=== PATIENT | female | born 1950 | race Caucasian/White ===

== ENCOUNTER 2018-06-07 17:55 | Emergency (ER) | payer OTHER ==
[2018-06-07] MEDS ORDERED: FENTANYL CITR 100 MCG/2 ML ONE (18:15)
[2018-06-07] MEDS ORDERED: ADENOSINE 6 MG/ 2ML VIAL IV ONE ×2 (18:15→18:20)
[2018-06-07] MEDS ORDERED: NA CHLORIDE 0.9% 1,000 ML ONE (18:16)
[2018-06-07 18:24] LABS: Absolute Lymphocytes (CBC) 7.3 K/uL (0.7-4.9); Basophils % 0.5 % (0-1.3); Eosinophils % 2.1 % (0-4.4); Hematocrit 46.3 % (36.0-45.0); Lymphocytes % 53.4 % (15.3-44.8); MPV 9.6 fL (7.6-11.3); Monocytes % 7.2 % (3.3-12.3); RBC Red Blood Cell Count 4.66 M/uL (3.86-4.86)
--- NOTE | 2018-06-07 18:41 | RAD REPORT ---
EXAM DESCRIPTION: RAD - Chest Single View - 06/07/2018 6:28 pm CLINICAL HISTORY: ^PALPITATIONS COMPARISON: None. TECHNIQUE: AP portable chest image was obtained 1825 hours . FINDINGS: Lungs are clear. Heart and vasculature are normal. No measurable pleural effusion and no p neumothorax. No acute bony abnormality seen. No acute aortic findings suspected. Resuscitation paddle overlies the right chest. IMPRESSION: No acute cardiopulmonary process.
[2018-06-07 18:44] LABS: BUN Blood Urea Nitrogen 17 mg/dL (7-18); Bicarbonate 30 mmol/L (21-32); Glucose Level 146 mg/dL (74-106); Magnesium 2.1 mg/dL (1.8-2.4); NT PRO-BNP 329 pg/mL (<125); Potassium 3.8 mmol/L (3.5-5.1); Sodium Level 137 mmol/L (136-145); Troponin (Emerg Dept Use Only) < 0.02 ng/mL (0.0-0.045)
--- NOTE | 2018-06-07 18:58 | ER ---
Nurse's Notes [facility] Name: Marcy Naylor Age: 68 yrs Sex: Female : 1950 Arrival Date: 06/07/2018 Time: 17:57 Bed 4 Private MD: Diagnosis: Supraventricular tachycardia Presentation: 06/07 17:58 Presenting complaint: Patient states: "my heart started racing around 5:23pm today". Pt aa5 reports taking Flecainide 100 mg OVEN HEATER prescribed as needed on October 2017 for intermittent A-fib. Pt states "My sales representative aircraft is at [facility] and he recommended a heart ablation but I didn't follow through with treatment". 17:58 Transition of care: patient was not received from another setting of care. Onset of aa5 symptoms was June 07, 2018. Risk Assessment: Do you want to hurt yourself or someone else? Patient reports no desire to harm self or others. Care prior to arrival: None. 17:58 Method Of Arrival: Wheelchair aa5 17:58 Acuity: ARABELLA 1 aa5 18:22 Initial Sepsis Screen: Does the patient meet any 2 criteria? HR > 90 bpm. Does the tw2 patient have a suspected source of infection? No. Patient's initial sepsis screen is negative. Historical: - Allergies: 18:35 Adhesives; tw2 - Home Meds: 18:35 levothyroxine 125 mcg tab 1 tab once daily [Active]; flecainide 100 mg oral tab 1 tab tw2 every 12 hours for Prevention of Paroxysmal Supraventricular Tachycardia [Active]; - PMHx: 18:35 SVT; Hypothyroidism; tw2 - Immunization history:: Adult Immunizations. - Social history:: Smoking status: . - Family history:: not pertinent. - Ebola Screening: : Patient denies travel to an Ebola-affected area in the 21 days before illness onset. - Hospitalizations: : No recent hospitalization is reported. Screenin:59 Abuse screen: Denies threats or abuse. Nutritional screening: No deficits noted. tw2 Tuberculosis screening: No symptoms or risk factors identified. Fall Risk None identified. Assessment: 18:02 General: Appears in no apparent distress. Behavior is calm, cooperative, appropriate tw2 for age. Pain: Denies pain. Neuro: Level of Consciousness is awake, alert, obeys commands, Oriented to person, place, time, situation. Cardiovascular: Reports palpitations, Heart tones S1 S2 Capillary refill < 3 seconds Patient's skin is warm and dry. Rhythm is SVT. Respiratory: Airway is patent Respiratory effort is even, unlabored, Respiratory pattern is regular, symmetrical, Breath sounds are clear bilaterally. GI: No signs and/or symptoms were reported involving the gastrointestinal system. : No signs and/or symptoms were reported regarding the genitourinary system. EENT: No signs and/or symptoms were reported regarding the EENT system. Derm: No signs and/or symptoms reported regarding the dermatologic system. Musculoskeletal: Range of motion: intact in all extremities. 18:45 Reassessment: Patient appears in no apparent distress at this time. Patient and/or tw2 family updated on plan of care and expected duration. Pain level reassessed. Patient is alert, oriented x 3, equal unlabored respirations, skin warm/dry/pink. pt states "so they are not going to keep me here are they, i have a little dog", pt educated to the medical condition, pt states "well i dont know i really have no body for her" Patient states symptoms have improved. Vital Signs: 18:00 Pulse 220; aa5 18:02 BP 133 / 73; Pulse 222; Resp 22; Pulse Ox 100% ; tw2 18:20 BP 146 / 81; Pulse 84; Resp 22; Pulse Ox 99% on R/A; tw2 18:45 BP 127 / 72; Pulse 77; Resp 18; Pulse Ox 99% on R/A; tw2 18:02 Dr. Baca at bedside, pt placed on life pack, Sophy, RN, LARRY Florentino, LARRY Wheatley at bedside tw2 to perform ekg, etc. ED Course: 17:57 Patient arrived in ED. rg4 17:58 Cedric Baca MD is Attending Physician. rn 17:58 Arm band placed on Patient placed in an exam room, on a stretcher. aa5 17:59 Corry Luciano, LARRY is Primary Nurse. tw2 17:59 Placed in gown. Bed in low position. Call light in reach. general manager farm on. Pulse ox tw2 on. NIBP on. 18:00 Inserted saline lock: 20 gauge in right antecubital area, using aseptic technique. jl7 Blood collected. 18:00 Missed attempt(s): 20 gauge in right antecubital area. per LARRY Florentino. Bleeding tw2 controlled, band aid applied, catheter tip intact. 18:02 Inserted saline lock: 20 gauge in left antecubital area, using aseptic technique. iw 18:04 Triage completed. aa5 18:25 XRAY Chest (1 view) In Process Unspecified. EDMS 19:12 No provider procedures requiring assistance completed. IV discontinued, intact, jl7 bleeding controlled, No redness/swelling at site. Pressure dressing applied. 19:14 Primary Nurse role handed off by Corry Luciano, RN tw2 Administered Medications: 18:11 Drug: Adenosine 6 mg Route: IVP; Site: right antecubital; tw2 18:12 Follow up: Response: No adverse reaction; Marked relief of symptoms tw2 Outcome: 18:58 Discharge ordered by . rn 19:12 Discharged to home ambulatory. jl7 19:12 Condition: stable 19:12 Discharge instructions given to patient, family, Instructed on discharge instructions, follow up and referral plans. Demonstrated understanding of instructions, follow-up care. 19:13 Patient left the ED. jl7 Signatures: Dispatcher [employer] EDMS Sophy Carter, RN LARRY iw Cedric Baca MD MD rn Calderon, Audri, RN RN aa5 Corry Luciano, LARRY RN Larissa Zaidi [facility] Chadd Gan, RN RN jl7 Corrections: (The following items were deleted from the chart) 18:15 18:00 Inserted saline lock: 20 gauge in left antecubital area, using aseptic technique. [facility]
--- NOTE | 2018-06-07 18:58 | EDPHYS ---
Physician Documentation [facility] Name: Marcy Naylor Age: 68 yrs Sex: Female : 1950 Arrival Date: 06/07/2018 Time: 17:57 Bed 4 Private MD: ED Physician Cedric Baca HPI: 06/07 18:09 This 68 yrs old Female presents to ER via Wheelchair with complaints of Palpitations. rn 18:09 The patient presents with a history of heart racing. Onset: The symptoms/episode rn began/occurred 40 minute(s) ago, at 17:40. Duration: The patient or guardian reports a single episode. Severity of symptoms: At their worst the symptoms were moderate in the emergency department the symptoms are unchanged. The patient has experienced similar episodes in the past. Reports onset of palpitations approx 1720, constant, took a flecainide, and only mild response, this is 3rd episode of tachycardia, + lightheaded, no chest pain/sob. Otherwise has been feeling fine. Historical: - Allergies: 18:35 Adhesives; tw2 - Home Meds: 18:35 levothyroxine 125 mcg tab 1 tab once daily [Active]; flecainide 100 mg oral tab 1 tab tw2 every 12 hours for Prevention of Paroxysmal Supraventricular Tachycardia [Active]; - PMHx: 18:35 SVT; Hypothyroidism; tw2 - Immunization history:: Adult Immunizations. - Social history:: Smoking status: . - Family history:: not pertinent. - Ebola Screening: : Patient denies travel to an Ebola-affected area in the 21 days before illness onset. - Hospitalizations: : No recent hospitalization is reported. ROS: 18:09 Constitutional: Negative for fever, chills, and weight loss, Eyes: Negative for injury, rn pain, redness, and discharge, Cardiovascular: + palpitations Respiratory: Negative for shortness of breath, cough, wheezing, and pleuritic chest pain, Abdomen/GI: Negative for abdominal pain, nausea, vomiting, diarrhea, and constipation, MS/Extremity: Negative for injury and deformity, Skin: Negative for injury, rash, and discoloration, Neuro: Negative for headache, weakness, numbness, tingling, and seizure. Exam: 18:09 Constitutional: This is a well developed, well nourished patient who is awake, alert, rn and in no acute distress. Head/Face: Normocephalic, atraumatic. Eyes: Pupils equal round and reactive to light, extra-ocular motions intact. Lids and lashes normal. Conjunctiva and sclera are non-icteric and not injected. Cornea within normal limits. Periorbital areas with no swelling, redness, or edema. ENT: MMM Cardiovascular: tachycardic, regular Respiratory: Clear to auscultation, equal bilaterally Abdomen/GI: Soft, non-tender, with normal bowel sounds. No distension or tympany. No guarding or rebound. No evidence of tenderness throughout. Skin: Warm, dry with normal turgor. Normal color with no rashes, no lesions, and no evidence of cellulitis. MS/ Extremity: Pulses equal, no cyanosis. Neurovascular intact. Full, normal range of motion. Equal circumference. Neuro: Awake and alert, GCS 15, oriented to person, place, time, and situation. Cranial nerves II-XII grossly intact. Motor strength 5/5 in all extremities. Sensory grossly intact. Cerebellar exam normal. Normal gait. Vital Signs: 18:00 Pulse 220; aa5 18:02 BP 133 / 73; Pulse 222; Resp 22; Pulse Ox 100% ; tw2 18:20 BP 146 / 81; Pulse 84; Resp 22; Pulse Ox 99% on R/A; tw2 18:45 BP 127 / 72; Pulse 77; Resp 18; Pulse Ox 99% on R/A; tw2 18:02 Dr. Baca at bedside, pt placed on life pack, Sophy RN, LARRY Florentino, LARRY Wheatley at bedside tw2 to perform ekg, etc. MDM: 17:58 Patient medically screened. rn 18:22 ED course: Pt s/p chemical cardioversion with adenosine, now sinus rhythm and rn asymptomatic.. 18:54 Data reviewed: vital signs, nurses notes, lab test result(s), EKG, radiologic studies, rn plain films, and as a result, I will discharge patient. Counseling: I had a detailed discussion with the patient and/or guardian regarding: the historical points, exam findings, and any diagnostic results supporting the discharge/admit diagnosis, lab results, radiology results, the need for outpatient follow up, to return to the emergency department if symptoms worsen or persist or if there are any questions or concerns that arise at home. Response to treatment: the patient's symptoms have resolved after treatment, the patient's condition has returned to base line, the patient is now symptom free, and as a result, I will discharge patient. Special discussion: I discussed with the patient/guardian in detail that at this point there is no indication for admission to the hospital. It is understood, however, that if the symptoms persist or worsen the patient needs to return immediately for re-evaluation. Based on the history and exam findings, there is no indication for further emergent testing or inpatient evaluation. I discussed with the patient/guardian the need to see the medicine technologist for further evaluation of the symptoms. ED course: Pt with symptoms resolved, now in sinus, asymptomatic, recommend outpt f/u with EP/cardiology. Patient still not sure if wants ablation since went about 20 years between episodes. Still has flecainide and understands its use. . 06/07 18:07 Order name: Basic Metabolic Panel 06/07 18:07 Order name: CBC with Diff rn 06/07 18:07 Order name: Magnesium rn 06/07 18:07 Order name: NT PRO-BNP 06/07 18:07 Order name: Troponin (emerg Dept Use Only) rn 06/07 18:07 Order name: Basic Metabolic Panel; Complete Time: 18:54 EDMS 06/07 18:07 Order name: XRAY Chest (1 view); Complete Time: 18:42 rn 06/07 18:07 Order name: EKG; Complete Time: 18:08 rn 06/07 18:07 Order name: Magnesium; Complete Time: 18:54 EDMS 06/07 18:07 Order name: NT PRO-BNP; Complete Time: 18:54 EDMS 06/07 18:08 Order name: CBC with Automated Diff EDWA 06/07 18:08 Order name: Troponin (Emerg Dept Use Only); Complete Time: 18:54 EDMS 06/07 19:01 Order name: Manual Differential EDWA 06/07 18:07 Order name: Cardiac monitoring; Complete Time: 18:25 rn 06/07 18:07 Order name: EKG - Nurse/Tech; Complete Time: 18:20 rn 06/07 18:07 Order name: IV Saline Lock; Complete Time: 18:20 rn 06/07 18:07 Order name: Labs collected and sent; Complete Time: 18:20 rn 06/07 18:07 Order name: O2 Per Protocol; Complete Time: 18:20 rn 06/07 18:07 Order name: O2 Sat Monitoring; Complete Time: 18:20 rn Administered Medications: 18:11 Drug: Adenosine 6 mg Route: IVP; Site: right antecubital; tw2 18:12 Follow up: Response: No adverse reaction; Marked relief of symptoms tw2 Disposition: 06/07/18 18:58 Discharged to Home. Impression: Supraventricular tachycardia. - Condition is Stable. - Discharge Instructions: Pharmaceutical Cardioversion, Paroxysmal Supraventricular Tachycardia. - Medication Reconciliation Form, Thank You Letter, Antibiotic Education, Prescription Opioid Use form. - Follow up: Private Physician; When: As needed; Reason: Recheck today's complaints, Re-evaluation by your physician. - Problem is new. - Symptoms have improved. Signatures: Dispatcher [employer] EDMS Cedric Baca MD MD rn Wise, LARRY Wheatley RN tw2 Chadd Gan RN RN jl7 Corrections: (The following items were deleted from the chart) 19:13 18:58 06/07/2018 18:58 Discharged to Home. Impression: Supraventricular tachycardia. jl7 Condition is Stable. Forms are Medication Reconciliation Form, Thank You Letter, Antibiotic Education, Prescription Opioid Use. Follow up: Private Physician; When: As needed; Reason: Recheck today's complaints, Re-evaluation by your physician. Problem is new. Symptoms have improved. rn
[2018-06-07 19:00] LABS: Platelet Estimate ADEQ
[2018-06-07 19:01] LABS: Blood Morphology Comment NOT SEEN (NOT SEEN)
--- NOTE | 2018-06-08 10:45 | EKG ---
Test Date: 2018-06-07 Test Time: 18:11:55 Coat Ironer Hand: CONY MEASUREMENT RESULTS: Intervals: Rate: 94 PA: 170 QRSD: 88 QT: 322 QTc: 402 [place]: P: 46 PA: 170 QRS: -32 T: 85 INTERPRETIVE STATEMENTS: Sinus rhythm with sinus arrhythmia with occasional premature ventricular complexes Left axis deviation Septal infarct, age undetermined Abnormal ECG Compared to ECG 06/07/2018 18:01:35 Supraventricular tachycardia no longer present Incomplete right bundle-branch block no longer present ST (T wave) deviation no longer present Myocardial infarct finding still present Electronically Signed On 06-08-18 10:42:58 MOLD MECHANIC by Tyshawn Angeles
--- NOTE | 2018-06-08 10:45 | EKG ---
Test Date: 2018-06-07 Test Time: 18:01:35 Manager Servicing: CONY MEASUREMENT RESULTS: Intervals: Rate: 222 AR: QRSD: 92 QT: 212 QTc: 407 [place]: P: AR: QRS: -46 T: 141 INTERPRETIVE STATEMENTS: Supraventricular tachycardia with frequent premature ventricular complexes Left axis deviation Incomplete right bundle branch block Septal infarct, age undetermined Marked ST abnormality, possible lateral subendocardial injury Abnormal ECG No previous ECG available for comparison Electronically Signed On 06-08-18 10:42:59 SENIOR ACCOUNTS PAYABLE CLERK by Tyshawn Angeles
== END 2018-06-07 19:13 | disposition home or self-care (01) ==
LOC: ER 17:55
DX: I47.1 Supraventricular tachycardia (principal); I49.3 Ventricular premature depolarization; R00.2 Palpitations
CPT/HCPCS: 36415; 71045; 80048; 83735; 83880; 84484; 85025; 93005 ×2; 96374; 99291; J0153 ×2; J7030; J3010

== ENCOUNTER 2018-06-19 20:56 | Emergency (ER) | payer OTHER ==
--- OUTSIDE RECORDS SUMMARY | 2018-06-19 20:58 | XMS REPORT | Clinical Summary ---
:1950 Author Organization [facility] Address [address] [place] [address] Care Team Providers Name Role Phone Jl Ramirez MD Primary Care Provider Allergies No Known Allergies Medications Medication Sig Dispensed Refills Start Date End Date Status levothyroxine Take 100 mcg by 0 Active (SYNTHROID, mouth daily. LEVOXYL) 100 mcg tablet flecainide Take 100 mg by 0 Active (TAMBOCOR) 100 MG mouth continuously tablet as needed (prn for tachycardia). metoprolol Take 1 tablet (25 30 tablet 0 12/16/2017 01/15/2018 succinate XL mg total) by mouth (TOPROL-XL) 25 mg daily for 30 days. 24 hr tablet nitrofurantoin, Take 1 capsule 14 capsule 0 06/11/2018 06/18/2018 macrocrystal-monohy (100 mg total) by drate, (MACROBID) mouth 2 (two) 100 MG capsule times a day for 7 days. Active Problems Not on file Encounters Date Type Specialty Care Team Description 06/11/2018 Emergency Emergency Medicine Nadir Sanz MD Paroxysmal SVT ( supraventricular tachycardia) (HCC) (Primary Dx); Urinary tract infection without hematuria, site unspecified 06/11/2018 Travel 12/15/2017 - Emergency Emergency Medicine Holly Curran, SVT ( supraventricular 12/16/2017 MD tachycardia) (Primary Dx) 09/29/2017 Emergency Emergency Medicine Joshua Garcia, SVT ( supraventricular MD tachycardia) (Primary Dx) after 06/18/2017 Social History Tobacco Use Types Packs/Day Years Used Date Never Smoker Smokeless Tobacco: Never Used Alcohol Use Drinks/Week oz/Week Comments Yes on occasion Sex Assigned at Date Recorded Not on file Job Start Date Occupation Industry Not on file Not on file Not on file Travel History Travel Start Travel End No recent travel history available. Last Filed Vital Signs Vital Sign Reading Time Taken Blood Pressure 103/66 06/11/2018 10:00 PM PATTERN REPAIR PERSON Pulse 69 06/11/2018 10:00 PM PATTERN REPAIR PERSON Temperature 36.1 C (97 F) 06/11/2018 8:01 PM PATTERN REPAIR PERSON Respiratory Rate 22 06/11/2018 10:00 PM PATTERN REPAIR PERSON Oxygen Saturation 98% 06/11/2018 10:00 PM PATTERN REPAIR PERSON Inhaled Oxygen Concentration - - Weight 65.8 kg (145 lb) 06/11/2018 8:00 PM PATTERN REPAIR PERSON Height 167.6 cm (5' 6") 06/11/2018 8:00 PM PATTERN REPAIR PERSON Body Mass Index 23.4 06/11/2018 8:00 PM PATTERN REPAIR PERSON Plan of Treatment Health Maintenance Due Date Last Done Comments BREAST CANCER SCREENING 1999 COLON CANCER SCREENING 1999 SHINGLES VACCINES (1 of 2) 1999 PNEUMOCOCCAL POLYSACCHARIDE VACCINE AGE 65 AND OVER 2014 INFLUENZA VACCINE 12/14/2017 02/18/2015 PNEUMOCOCCAL-13 Completed 03/05/2015 Procedures Procedure Name Priority Date/Time Associated Comments Diagnosis URINALYSIS STAT 06/11/2018 9:46 Results for this PM PATTERN REPAIR PERSON procedure are in the results section. XR CHEST 1 VW PORTABLE STAT 06/11/2018 8:35 Results for this PM PATTERN REPAIR PERSON procedure are in the results section. ECG ED PRELIMINARY Routine 06/11/2018 8:33 Results for this INTERPRETATION PM PATTERN REPAIR PERSON procedure are in the results section. ECG ED PRELIMINARY Routine 06/11/2018 8:33 Results for this INTERPRETATION PM PATTERN REPAIR PERSON procedure are in the results section. KS CRITICAL CARE, ADDL Routine 06/11/2018 8:33 Results for this 30 MIN PM PATTERN REPAIR PERSON procedure are in the results section. KS CRITICAL CARE, E/M Routine 06/11/2018 8:33 Results for this 30-74 MINUTES PM PATTERN REPAIR PERSON procedure are in the results section. ECG 12-LEAD Routine 06/11/2018 8:15 Results for this PM PATTERN REPAIR PERSON procedure are in the results section. SMEAR REVIEW STAT 06/11/2018 8:08 Results for this PM PATTERN REPAIR PERSON procedure are in the results section. ESTIMATED GFR STAT 06/11/2018 8:08 Results for this PM PATTERN REPAIR PERSON procedure are in the results section. CREATINE KINASE, TOTAL STAT 06/11/2018 8:08 Results for this (CPK) PM PATTERN REPAIR PERSON procedure are in the results section. TROPONIN, I-STAT STAT 06/11/2018 8:08 Results for this PM PATTERN REPAIR PERSON procedure are in the results section. HC COMPLETE BLD COUNT STAT 06/11/2018 8:08 Results for this W/AUTO DIFF PM PATTERN REPAIR PERSON procedure are in the results section. COMPREHENSIVE METABOLIC STAT 06/11/2018 8:08 Results for this PANEL PM PATTERN REPAIR PERSON procedure are in the results section. ECG 12-LEAD STAT 06/11/2018 8:03 Results for this PM PATTERN REPAIR PERSON procedure are in the results section. XR CHEST 1 VW PORTABLE STAT 12/15/2017 10:29 Results for this PM CDT procedure are in the results section. ECG ED PRELIMINARY Routine 12/15/2017 10:18 Results for this INTERPRETATION PM CDT procedure are in the results section. ECG ED PRELIMINARY Routine 12/15/2017 10:18 Results for this INTERPRETATION PM CDT procedure are in the results section. KS CRITICAL CARE, E/M Routine 12/15/2017 10:18 Results for this 30-74 MINUTES PM CDT procedure are in the results section. MANUAL DIFFERENTIAL STAT 12/15/2017 10:18 Results for this PM CDT procedure are in the results section. THYROID STIMULATING STAT 12/15/2017 10:18 Results for this HORMONE PM CDT procedure are in the results section. ZZESTIMATED GFR STAT 12/15/2017 10:18 Results for this PM CDT procedure are in the results section. PARTIAL THROMBOPLASTIN STAT 12/15/2017 10:18 Results for this TIME (PTT) PM CDT procedure are in the results section. PROTHROMBIN TIME WITH STAT 12/15/2017 10:18 Results for this INR PM CDT procedure are in the results section. CBC WITH PLATELET AND STAT 12/15/2017 10:18 Results for this DIFFERENTIAL PM CDT procedure are in the results section. B NATRIURETIC PEPTIDE STAT 12/15/2017 10:18 Results for this PM CDT procedure are in the results section. CREATINE KINASE, TOTAL STAT 12/15/2017 10:18 Results for this (CPK) PM CDT procedure are in the results section. TROPONIN STAT 12/15/2017 10:18 Results for this PM CDT procedure are in the results section. COMPREHENSIVE METABOLIC STAT 12/15/2017 10:18 Results for this PANEL PM CDT procedure are in the results section. ECG 12-LEAD Routine 12/15/2017 10:15 Results for this PM CDT procedure are in the results section. ECG 12-LEAD Routine 12/15/2017 10:13 Results for this PM CDT procedure are in the results section. ECG 12-LEAD Routine 12/15/2017 10:01 Results for this PM CDT procedure are in the results section. ECG ED PRELIMINARY Routine 09/29/2017 11:12 Results for this INTERPRETATION AM CDT procedure are in the results section. ECG ED PRELIMINARY Routine 09/29/2017 11:12 Results for this INTERPRETATION AM CDT procedure are in the results section. ECG 12-LEAD Routine 09/29/2017 10:51 Results for this AM CDT procedure are in the results section. ECG 12-LEAD STAT 09/29/2017 10:42 Results for this AM CDT procedure are in the results section. after 06/18/2017 Results Urinalysis (06/11/2018 9:46 PM PATTERN REPAIR PERSON) Glucose, UA Negative Negative [facility] Bilirubin, UA Negative Negative [facility] Ketones, UA Negative Negative [facility] Specific gravity, UA 1.010 1.005 - 1.030 [facility] Blood, UA Trace (A) Negative [facility] pH, UA 5.5 5.0 - 8.0 [facility] Protein, UA Negative Negative [facility] Urobilinogen, UA <2.0 <2.0 [facility] Nitrite, UA Negative Negative [facility] Leukocyte esterase, UA Moderate (A) Negative [facility] Color, UA Yellow [facility] Appearance, UA Clear [facility] Specimen Urine Performing Organization Address City/State/Zipcode Phone Number DEPARTMENT OF PATHOLOGY [address] [address] [place] [address] AND GENOMIC MEDICINE, [facility] [address] [place] [address] XR Chest 1 Vw Portable (06/11/2018 8:35 PM PATTERN REPAIR PERSON)Only the most recent of2 resultswithin the time period is included. Narrative Performed At EXAMINATION:XR CHEST 1 VW PORTABLE [facility] CLINICAL HISTORY:Shortness of breath COMPARISON:December 15, 2017 IMPRESSION: No consolidation or pleural effusion. The heart is normal in size. Trace vascular congestion. No gross pulmonary edema Tiny linear scarring or atelectasis in the left lung. Osseous structures are intact. [id number] Procedure Note Hm Interface, Radiology Results Incoming - 06/11/2018 8:53 PM PATTERN REPAIR PERSON EXAMINATION: XR CHEST 1 VW PORTABLE CLINICAL HISTORY: Shortness of breath COMPARISON: December 15, 2017 IMPRESSION: No consolidation or pleural effusion. The heart is normal in size. Trace vascular congestion. No gross pulmonary edema Tiny linear scarring or atelectasis in the left lung. Osseous structures are intact. [facility]-[id number] Performing Organization Address City/State/Zipcode Phone Number [facility] [address] [place] [address] ECG ED Preliminary Interpretation - Not an Order (06/11/2018 8:33 PM PATTERN REPAIR PERSON)Only the most recent of6 resultswithin the time period is included. Narrative Performed At Nadir Sanz MD 06/11/2018 10:05 PM ECG ED Preliminary Interpretation - Not an Order Performed by: Nadir Sanz MD Authorized by: Nadir Sanz MD ECG reviewed by ED Physician in the absence of a compressor station engineer: yes Previous ECG: Previous ECG:Compared to current Comparison ECG info:Earlier same day Similarity:Changes noted Interpretation: Interpretation: abnormal Rate: ECG rate:96 ECG rate assessment: normal Rhythm: Rhythm: sinus rhythm Ectopy: Ectopy: PVCs QRS: QRS axis:Indeterminate QRS intervals:Normal Q waves: Q waves:V1 and V2 CRITICAL CARE (06/11/2018 8:33 PM PATTERN REPAIR PERSON) Narrative Performed At Nadir Sanz MD 06/11/2018 10:05 PM Critical Care Performed by: Nadir Sanz MD Authorized by: Nadir Sanz MD Critical care provider statement: Critical care time (minutes):90 Critical care time was exclusive of:Separately billable procedures and treating other patients Critical care was necessary to treat or prevent imminent or life-threatening deterioration of the following conditions:Cardiac failure and circulatory failure Critical care was time spent personally by me on the following activities:Blood draw for specimens, development of treatment plan with patient or surrogate, evaluation of patient's response to treatment, examination of patient, obtaining history from patient or surrogate, ordering and performing treatments and interventions, ordering and review of laboratory studies, ordering and review of radiographic studies, pulse oximetry, re-evaluation of patient's condition and review of old charts Shakeel 'yes' if you are taking over critical care for this patient from another provider.: no ECG 12 lead (06/11/2018 8:15 PM PATTERN REPAIR PERSON)Only the most recent of7 resultswithin the time period is included. Ventricular rate 96 [facility] Atrial rate 96 [facility] [place] interval 172 [facility] QRSD interval 84 [facility] QT interval 312 [facility] QTC interval 394 [facility] P axis 1 54 [facility] QRS axis 1 -27 [facility] T wave axis 76 [facility] EKG impression Sinus rhythm with premature ventricular [facility] complexes or fusion complexes-Septal infarct , age undetermined-Abnormal ECG-- Narrative Performed At Performing Organization Address City/[facility]/Zipcode Phone Number [facility] [address] [place] [address] Smear review (06/11/2018 8:08 PM PATTERN REPAIR PERSON) Platelet slide review Kody adequate [facility] Enlarged platelets Slight [facility] Specimen Blood Performing Organization Address City/[facility] Phone Number DEPARTMENT OF PATHOLOGY [address] [address] [place] [address] AND [employer] MEDICINE, [facility] [address] [place] [address] Estimated GFR (06/11/2018 8:08 PM PATTERN REPAIR PERSON) Estimated GFR 46 (A) mL/min/1.73 m2 [facility] Comment: CENTER CatergoryUnitsInterpretation G1 >=90 Normal or high G2 60-89Mildly decreased [id number] to moderately decreased [id number] to severely decreased G4 15-29Severely decreased G5 <15Kidney failure The eGFR was calculated using the Chronic Kidney Disease Epidemiology Collaboration (CKD-EPI) equation. Interpretation is based on recommendations of the National Kidney Foundation-Kidney Disease Outcomes Quality Initiative (NKF-KDOQI) published in 2014. Specimen Plasma specimen Performing Organization Address City/State/Zipcode Phone Number DEPARTMENT OF PATHOLOGY [address] [address] AND [employer], [address] [facility] [address] [address] Troponin, I-Stat (06/11/2018 8:08 PM PATTERN REPAIR PERSON) Troponin, I-Stat 0.01 0.00 - 0.08 ng/mL [facility] Comment: CENTER 0.09 - 1.49 ng/mlMay indicate increased risk of acute coronary syndrome. >=1.5 ng/mlConsistent with acute myocardial infarction. The diagnostic value of a single normal or non-diagnostic result is questionable.Serial samples at 2-6 hour intervals are required to rule out acute myocardial injury. Specimen Plasma specimen Performing Organization Address City/State/Zipcode Phone Number DEPARTMENT OF PATHOLOGY [address] [address] [address] [facility] [place] [phone] CBC with platelet and differential (06/11/2018 8:08 PM PATTERN REPAIR PERSON)Only the most recent of2 resultswithin the time period is included. WBC 12.9 (H) 4.5 - 11.0 k/uL [facility] RBC 4.41 4.20 - 5.50 M/uL [facility] HGB 14.2 12.0 - 16.0 g/dL [facility] HCT 44.1 37.0 - 47.0 % [facility] MCV 100.0 82.0 - 100.0 fL [facility] MCH 32.2 27.0 - 34.0 pg [facility] MCHC 32.2 31.0 - 37.0 g/dL [facility] RDW - SD 44.5 37.0 - 55.0 fL [facility] MPV 10.9 8.8 - 13.2 fL [facility] Platelet count 185 150 - 400 K/uL [facility] Neutrophils 26.3 (L) 39.0 - 69.0 % [facility] Lymphocytes 60.1 (H) 25.0 - 45.0 % [facility] Monocytes 9.5 0.0 - 10.0 % [facility] Eosinophils 3.9 0.0 - 5.0 % [facility] [place] Basophils 0.2 0.0 - 1.0 % [facility] Specimen Blood Performing Organization Address City/State/Zipcode Phone Number DEPARTMENT OF PATHOLOGY [address] [place] [address] AND [facility] [place] [address] Creatine kinase, total (CPK) (06/11/2018 8:08 PM PATTERN REPAIR PERSON)Only the most recent of2 resultswithin the time period is included. Creatine kinase 81 30 - 190 U/L [facility] Specimen Blood Performing Organization Address City/[facility] Phone Number DEPARTMENT OF PATHOLOGY [address] [place] [address] AND [facility] [place] [address] Comprehensive metabolic panel (06/11/2018 8:08 PM PATTERN REPAIR PERSON)Only the most recent of2 resultswithin the time period is included. Sodium 144 128 - 145 mEq/L [facility] Potassium 4.5 3.6 - 5.1 mEq/L [facility] CO2 27 18 - 33 mEq/L [facility] Chloride 101 98 - 108 mEq/L [facility] Glucose 169 (H) 73 - 118 mg/dL [facility] Calcium 9.5 8.0 - 10.3 mg/dL [facility] BUN 22 7 - 22 mg/dL [facility] Creatinine 1.2 (H) 0.5 - 0.9 mg/dL [facility] Alkaline phosphatase 75 42 - 141 U/L [facility] ALT 17 10 - 47 U/L [facility] AST 29 11 - 38 U/L [facility] Total bilirubin 0.6 0.2 - 1.6 mg/dL [facility] Albumin 3.9 3.3 - 5.5 g/dL [facility] Protein 7.2 6.4 - 8.1 g/dL [facility] Anion gap 16@ANIO (H) 7 - 15 mEq/L [facility] A/G ratio 1.2 0.7 - 3.8 [facility] Specimen Plasma specimen Performing Organization Address City/State/Zipcode Phone Number DEPARTMENT OF PATHOLOGY [address] [address] [place] [address] [facility] [address] [place] [address] CRITICAL CARE (12/15/2017 10:18 PM CDT) Narrative Performed At Holly Curran MD 12/16/2017 12:06 AM Critical Care Performed by: HOLLY CURRAN Authorized by: HOLLY CURRAN Critical care provider statement: Critical care time (minutes):35 Critical care time was exclusive of:Separately billable procedures and treating other patients and teaching time Critical care was necessary to treat or prevent imminent or life-threatening deterioration of the following conditions:Cardiac failure Critical care was time spent personally by me on the following activities:Blood draw for specimens, development of treatment plan with patient or surrogate, discussions with consultants, evaluation of patient's response to treatment, examination of patient, interpretation of cardiac output measurements, obtaining history from patient or surrogate, ordering and performing treatments and interventions, ordering and review of laboratory studies, ordering and review of radiographic studies, pulse oximetry, re-evaluation of patient's condition and review of old charts Shakeel 'yes' if you are taking over critical care for this patient from another provider.: no Estimated GFR (12/15/2017 10:18 PM CDT) GFR Non Af Amer 45 (A) mL/min/1.[address] [facility] DEPARTMENT OF PATHOLOGY AND GENOMIC MEDICINE GFR Af Amer 54 (A) mL/min/1.[address] [facility] DEPARTMENT OF Comment: PATHOLOGY AND GENOMIC Chronic kidney disease: <60 mL/min/1.73m2 MEDICINE Kidney failure: <15 mL/min/1.73m2 The estimated GFR is calculated from the IDMS-traceable Modification of Diet in Renal Disease Equation. The accuracy of the calculation is poor when the creatinine is normal. Calculated values >90 mL/min/1.73m2 are not reported. This equation has not been validated in children (<18 years), women, the elderly (>70 years), or ethnic groups other than Caucasians and Americans. Specimen Plasma specimen Performing Organization Address City/[facility] Phone Number [facility] PATHOLOGY AND [id number] [place], [place] [address]y. [address] [place] [phone] [facility] Troponin (12/15/2017 10:18 PM CDT) Troponin <0.300 0.000 - 0.300 ng/mL [facility] DEPARTMENT OF Comment: PATHOLOGY AND GENOMIC The diagnostic value of a single normal or non-diagnostic MEDICINE result is questionable.Serial samples at 2-6 hour intervals are required to rule out acute myocardial injury. Specimen Plasma specimen Performing Organization Address [facility] Phone Number [facility] PATHOLOGY AND [id number] [place], [place] [address]y. [address] [place] [address] [facility] MEDICINE Manual differential (12/15/2017 10:18 PM CDT) Neutrophils 39.0 39.0 - 69.0 % [facility] DEPARTMENT OF PATHOLOGY AND GENOMIC MEDICINE Lymphocytes 45.0 25.0 - 45.0 % [facility] DEPARTMENT OF PATHOLOGY AND GENOMIC MEDICINE Monocytes 10.0 0.0 - 10.0 % [facility] DEPARTMENT OF PATHOLOGY AND GENOMIC MEDICINE Eosinophils 1.0 0.0 - 5.0 % [facility] DEPARTMENT OF PATHOLOGY AND GENOMIC MEDICINE Basophils 1.0 0.0 - 1.0 % [facility] DEPARTMENT OF PATHOLOGY AND GENOMIC MEDICINE Reactive lymphocytes [address] [facility] DEPARTMENT OF PATHOLOGY AND GENOMIC MEDICINE Platelet slide review Adequate [facility] DEPARTMENT OF PATHOLOGY AND GENOMIC MEDICINE Performing Organization Address [facility] Phone Number [facility] DEPARTMENT PATHOLOGY AND [address] [place], [place] [address]y. [address] [place] [address] [facility] Partial thromboplastin time, activated (12/15/2017 10:18 PM CDT) PTT 28.1 23.0 - 36.[address] [facility] DEPARTMENT OF Comment: PATHOLOGY AND GENOMIC PTT therapeutic range for unfractionated heparin is MEDICINE 66.0-112.0 seconds which corresponds to Anti-Xa 0.3-0.7 U/mL. The reference range has changed starting 10/14/2009 @12:00pm Specimen Blood Performing Organization Address City/[facility] Phone Number [facility] DEPARTMENT PATHOLOGY AND [address] [place], [place] [address]y. [address] [place] [address] [facility] Prothrombin time with INR (12/15/2017 10:18 PM CDT) Prothrombin time 14.0 12.0 - 15.[address] [facility] DEPARTMENT OF PATHOLOGY AND GENOMIC MEDICINE INR 1.1 [facility] DEPARTMENT OF Comment: PATHOLOGY AND GENOMIC The International Normalized Ratio (INR) is a therapeutic MEDICINE monitoring tool for patients who are stable on oral anticoagulant therapy. An INR of 2.0-3.0 is suggested for deep vein thrombosis/pulmonary embolism. Specimen Blood Performing Organization Address City/[facility]/Zipcode Phone Number [facility] DEPARTMENT OF PATHOLOGY AND [address] [place] [address]. [address] [place] [address] [facility] Thyroid stimulating hormone (12/15/2017 10:18 PM CDT) TSH 3.48 0.55 - 4.78 uIU/mL [facility] DEPARTMENT OF PATHOLOGY AND GENOMIC MEDICINE Specimen Plasma specimen Performing Organization Address [facility]/Zipcode Phone Number [facility] DEPARTMENT OF PATHOLOGY AND [address] [place] [address]. [address] [place] [phone] [facility] B natriuretic peptide (12/15/2017 10:18 PM CDT) BNP 178 (H) 0 - 100 pg/mL [facility] DEPARTMENT OF PATHOLOGY AND GENOMIC MEDICINE Specimen Blood Performing Organization Address [facility] Phone Number [facility] DEPARTMENT OF PATHOLOGY AND [address] [place] [address]. [address] [place] [phone] GENOMIC [facility] after 06/18/2017 Insurance Payer Benefit Plan / Group Subscriber ID Type Phone Address [employer] MEDICARE [employer] MEDICARE PPO/PFFS/ERS [facility] xxxxxxxxx PPO Advance Directives Patient has advance care planning documents on file. For more information, please contact:[place] [address]
[2018-06-19] MEDS ORDERED: DIPHENHYDRAMINE 50 MG/ML VIAL ONE (21:44)
[2018-06-19] MEDS ORDERED: FAMOTIDINE 20 MG/2 ML VIAL IV ONE (21:45)
[2018-06-19] MEDS ORDERED: METHYLPREDNISOLONE 40 MG INJ ONE (21:45)
--- NOTE | 2018-06-19 22:05 | EDPHYS ---
Physician Documentation [facility] Name: Marcy Naylor Age: 68 yrs Sex: Female : 1950 Arrival Date: 06/19/2018 Time: 21:02 Bed 5 Private MD: ED Physician Nhan Chowdhury HPI: 06/19 21:56 This 68 yrs old Female presents to ER via Ambulatory with complaints of gs Allergic Reaction. 21:56 The patient presents with swelling of the lips, swelling of the tongue. Onset: The gs symptoms/episode began/occurred 5 day(s) ago, and became persistent. Possible causes: antibiotics, macrobid. Severity of symptoms: At their worst the symptoms were moderate in the emergency department the symptoms are unchanged. The patient has not experienced similar symptoms in the past. The patient has been recently seen by a physician: with different complaint(s). 21:56 Associated signs and symptoms: Pertinent negatives: chest pain, dysphagia, shortness of gs breath, Syncope vomiting. Historical: - Allergies: 21:16 Adhesives; fc - Home Meds: 21:16 flecainide 100 mg Oral tab 1 tab every 12 hours for Prevention of Paroxysmal fc Supraventricular Tachycardia [Active]; levothyroxine 125 mcg tab 1 tab once daily [Active]; - PMHx: 21:16 Hypothyroidism; SVT; fc - PSHx: 21:16 Tonsillectomy; fc - Immunization history:: Last tetanus immunization: up to date Flu vaccine is up to date. - Social history:: Smoking status: Patient/guardian denies using tobacco, Patient/guardian denies using alcohol, street drugs. - Ebola Screening: : Patient negative for fever greater than or equal to 101.5 degrees Fahrenheit, and additional compatible Ebola Virus Disease symptoms Patient denies exposure to infectious person Patient denies travel to an Ebola-affected area in the 21 days before illness onset. ROS: 21:56 All other systems are negative. gs Exam: 21:56 Head/Face: Normocephalic, atraumatic. Eyes: Pupils equal round and reactive to light, gs extra-ocular motions intact. Lids and lashes normal. Conjunctiva and sclera are non-icteric and not injected. Cornea within normal limits. Periorbital areas with no swelling, redness, or edema. Neck: Trachea midline, no thyromegaly or masses palpated, and no cervical lymphadenopathy. Supple, full range of motion without nuchal rigidity, or vertebral point tenderness. No Meningismus. Chest/axilla: Normal chest wall appearance and motion. Nontender with no deformity. No lesions are appreciated. Cardiovascular: Regular rate and rhythm with a normal S1 and S2. No gallops, murmurs, or rubs. Normal PMI, no JVD. No pulse deficits. Respiratory: Lungs have equal breath sounds bilaterally, clear to auscultation and percussion. No rales, rhonchi or wheezes noted. No increased work of breathing, no retractions or nasal flaring. Abdomen/GI: Soft, non-tender, with normal bowel sounds. No distension or tympany. No guarding or rebound. No evidence of tenderness throughout. Back: No spinal tenderness. No costovertebral tenderness. Full range of motion. Skin: Warm, dry with normal turgor. Normal color with no rashes, no lesions, and no evidence of cellulitis. MS/ Extremity: Pulses equal, no cyanosis. Neurovascular intact. Full, normal range of motion. Neuro: Awake and alert, GCS 15, oriented to person, place, time, and situation. Cranial nerves II-XII grossly intact. Motor strength 5/5 in all extremities. Sensory grossly intact. Cerebellar exam normal. Normal gait. 21:56 Constitutional: The patient appears in no acute distress, alert, awake. 21:56 ENT: Mouth: Lips: very minimal swelling, cant appreciate tongue swelling but pt states is enlarged. Vital Signs: 21:00 BP 134 / 77; Pulse 57; Resp 18; Temp 98.6(O); Pulse Ox 100% on R/A; Weight 65.77 kg fc (R); Height 5 ft. 6 in. (167.64 cm) (R); Pain 0/10; 22:23 BP 120 / 75; Pulse 58; Resp 16; Temp 97.2; Pulse Ox 100% on R/A; Pain 0/10; ed1 21:00 Body Mass Index 23.40 (65.77 kg, 167.64 cm) MDM: 21:25 Patient medically screened. 21:56 Differential diagnosis: anaphylaxis, angioedema, non IgE mediated drug reaction. Data gs reviewed: vital signs, nurses notes. Response to treatment: the patient's symptoms have mildly improved after treatment, and as a result, I will discharge patient. Administered Medications: 21:41 Drug: SOLU-Medrol 80 mg Route: IVP; Site: right antecubital; ed1 22:25 Follow up: Response: No adverse reaction; Marked relief of symptoms ed1 21:41 Drug: Benadryl 12.5 mg Route: IVP; Site: right antecubital; ed1 22:24 Follow up: Response: No adverse reaction; Marked relief of symptoms ed1 21:41 Drug: Pepcid 20 mg Route: IVP; Site: right antecubital; ed1 22:24 Follow up: Response: No adverse reaction; Marked relief of symptoms ed1 Disposition: 06/19/18 22:04 Discharged to Home. Impression: Angioneurotic edema. - Condition is Stable. - Discharge Instructions: Angioedema, Vycr-to-Tonp. - Prescriptions for Pepcid 20 mg Oral Tablet - take 1 tablet by ORAL route every 12 hours for 7 days; 14 tablet. Prednisone 20 mg Oral Tablet - take 1 tablet by ORAL route once daily for 5 days; 5 tablet. Zyrtec 10 mg Oral Tablet - take 1 tablet by ORAL route once daily .; 7 tablet. - Medication Reconciliation Form, Thank You Letter, Antibiotic Education, Prescription Opioid Use form. - Follow up: Private Physician; When: 1 - 2 days; Reason: Re-evaluation by your physician. Signatures: Asia Snell RN RN Sheela Govea RN RN ed1 Nhan Chowdhury MD MD Corrections: (The following items were deleted from the chart) 22:26 22:04 06/19/2018 22:04 Discharged to Home. Impression: Angioneurotic edema. Condition ed1 is Stable. Forms are Medication Reconciliation Form, Thank You Letter, Antibiotic Education, Prescription Opioid Use. Follow up: Private Physician; When: 1 - 2 days; Reason: Re-evaluation by your physician. gs
--- NOTE | 2018-06-19 22:05 | ER ---
Nurse's Notes [facility] Name: Marcy Naylor Age: 68 yrs Sex: Female : 1950 Arrival Date: 06/19/2018 Time: 21:02 Bed 5 Private MD: Diagnosis: Angioneurotic edema Presentation: 06/19 21:00 Presenting complaint: Patient states: that she is having allergic reaction to fc Nitrofurantoin. States that her bottom lip is swelling for the past couple of days and it is getting worse. 21:00 Transition of care: patient was not received from another setting of care. Onset: The fc symptoms/episode began/occurred gradually. Anaphylaxis evaluation, lower lip swelling and red. Onset of symptoms was June 17, 2018. Risk Assessment: Do you want to hurt yourself or someone else? Patient reports no desire to harm self or others. Initial Sepsis Screen: Does the patient meet any 2 criteria? No. Patient's initial sepsis screen is negative. Does the patient have a suspected source of infection? No. Patient's initial sepsis screen is negative. Care prior to arrival: None. 21:00 Method Of Arrival: Ambulatory fc 21:00 Acuity: ARABELLA 3 fc Historical: - Allergies: 21:16 Adhesives; fc - Home Meds: 21:16 flecainide 100 mg Oral tab 1 tab every 12 hours for Prevention of Paroxysmal fc Supraventricular Tachycardia [Active]; levothyroxine 125 mcg tab 1 tab once daily [Active]; - PMHx: 21:16 Hypothyroidism; SVT; fc - PSHx: 21:16 Tonsillectomy; fc - Immunization history:: Last tetanus immunization: up to date Flu vaccine is up to date. - Social history:: Smoking status: Patient/guardian denies using tobacco, Patient/guardian denies using alcohol, street drugs. - Ebola Screening: : Patient negative for fever greater than or equal to 101.5 degrees Fahrenheit, and additional compatible Ebola Virus Disease symptoms Patient denies exposure to infectious person Patient denies travel to an Ebola-affected area in the 21 days before illness onset. Screenin:21 Abuse screen: Denies threats or abuse. Denies injuries from another. Nutritional ed1 screening: No deficits noted. Tuberculosis screening: No symptoms or risk factors identified. Fall Risk None identified. Assessment: 21:21 General: Appears uncomfortable, Behavior is calm, cooperative, Pt states "I was taking ed1 this antibiotic and a few days ago my lips started swelling and tingling.". Pain: Complains of pain in upper lip and lower lip Pain currently is 2 out of 10 on a pain scale. Quality of pain is described as burning, Pain began 2-3 days ago. Is continuous. Neuro: Level of Consciousness is awake, alert, obeys commands, Oriented to person, place, time, situation. Cardiovascular: Heart tones S1 S2 present. Respiratory: Airway is patent Respiratory effort is even, unlabored, Respiratory pattern is regular, symmetrical, Breath sounds are clear bilaterally. Denies cough, shortness of breath. GI: No signs and/or symptoms were reported involving the gastrointestinal system. : No signs and/or symptoms were reported regarding the genitourinary system. EENT: Oral mucosa is moist. Derm: Skin is intact, is healthy with good turgor, Skin is dry, Skin is normal, Skin temperature is warm no rash observed. Musculoskeletal: Circulation, motion, and sensation intact. Range of motion: intact in all extremities. 22:23 Reassessment: Patient appears in no apparent distress at this time. Patient and/or ed1 family updated on plan of care and expected duration. Pain level reassessed. Patient is alert, oriented x 3, equal unlabored respirations, skin warm/dry/pink. Patient denies pain at this time. Patient states feeling better. Patient states symptoms have improved. Vital Signs: 21:00 BP 134 / 77; Pulse 57; Resp 18; Temp 98.6(O); Pulse Ox 100% on R/A; Weight 65.77 kg fc (R); Height 5 ft. 6 in. (167.64 cm) (R); Pain 0/10; 22:23 BP 120 / 75; Pulse 58; Resp 16; Temp 97.2; Pulse Ox 100% on R/A; Pain 0/10; ed1 21:00 Body Mass Index 23.40 (65.77 kg, 167.64 cm) ED Course: 21:00 Arm band placed on right wrist. Patient placed in an exam room, on a stretcher. 21:02 Patient arrived in ED. es 21:04 Nhan Chowdhury MD is Attending Physician. gs 21:15 Triage completed. 21:17 Govea, Sheela, RN is Primary Nurse. ed1 21:21 Patient has correct armband on for positive identification. Placed in gown. Bed in low ed1 position. Call light in reach. Pulse ox on. NIBP on. Warm blanket given. 21:40 Inserted saline lock: 20 gauge in right antecubital area, using aseptic technique. ed1 22:23 No provider procedures requiring assistance completed. IV discontinued, intact, ed1 bleeding controlled, No redness/swelling at site. Pressure dressing applied. Administered Medications: 21:41 Drug: SOLU-Medrol 80 mg Route: IVP; Site: right antecubital; ed1 22:25 Follow up: Response: No adverse reaction; Marked relief of symptoms ed1 21:41 Drug: Benadryl 12.5 mg Route: IVP; Site: right antecubital; ed1 22:24 Follow up: Response: No adverse reaction; Marked relief of symptoms ed1 21:41 Drug: Pepcid 20 mg Route: IVP; Site: right antecubital; ed1 22:24 Follow up: Response: No adverse reaction; Marked relief of symptoms ed1 Outcome: 22:04 Discharge ordered by . [place]ito 22:23 Discharged to home ambulatory, with friend. ed1 22:23 Condition: good 22:23 Discharge instructions given to patient, Instructed on discharge instructions, follow up and referral plans. medication usage, Demonstrated understanding of instructions, follow-up care, medications, Prescriptions given X 3. 22:26 Patient left the ED. ed1 Signatures: Rosibel Strickland Felicia, RN RN Sheela Govea RN RN ed1 Nhan Chowdhury MD MD gs
== END 2018-06-19 22:26 | disposition home or self-care (01) ==
LOC: ER 20:56
DX: T78.3XXA Angioneurotic edema, initial encounter (principal); X58.XXXA Exposure to other specified factors, initial encounter; I10 Essential (primary) hypertension; I47.1 Supraventricular tachycardia; Z79.899 Other long term (current) drug therapy
CPT/HCPCS: 96374; 96375; 99284; J2920

== ENCOUNTER 2018-08-07 23:05 | Emergency (ER) | payer OTHER ==
--- OUTSIDE RECORDS SUMMARY | 2018-08-07 23:10 | XMS REPORT | Clinical Summary ---
:1950 Author Organization [facility] Address [address] [place] [address] Care Team Providers Name Role Phone Jl Ramirez MD Primary Care Provider Allergies Active Allergy Reactions Severity Noted Date Comments Latex 07/05/2018 blisters Nitrofurantoin Monohyd/M-Cryst 08/05/2018 Nitrofurantoin Anaphylaxis High 07/05/2018 Other 07/05/2018 "All types of Metals" Medications Medication Sig Dispensed Refills Start Date End Date Status levothyroxine Take 125 mcg 0 Active (SYNTHROID, by mouth LEVOXYL) 125 mcg daily. tablet rivaroxaban Take 1 tablet 90 tablet 2 07/07/2018 04/03/2019 Active (XARELTO) 20 mg (20 mg total) tablet by mouth daily for 270 days. sucralfate Take 1 g by 0 Active (CARAFATE) 100 mouth 4 mg/mL suspension (four) times a day. pantoprazole Take 40 mg by 0 Active (PROTONIX) 40 MG EC mouth daily. tablet minocycline Take 100 mg 0 Active (MINOCIN,DYNACIN) by mouth 2 100 MG capsule (two) times a day. colchicine 0.6 mg Take 0.6 mg 0 Active tablet by mouth 2 (two) times a day. sotalol (BETAPACE) Take 0.5 30 tablet 0 07/16/2018 08/15/2018 Active 80 MG tablet tablets (40 mg total) by mouth 2 (two) times a day for 30 days. cephalexin (KEFLEX) Take 1 14 capsule 0 08/05/2018 08/12/2018 Active 500 MG capsule capsule (500 mg total) by mouth 2 (two) times a day for 7 days. levothyroxine Take 100 mcg 0 07/05/2018 Discontinued (SYNTHROID, by mouth LEVOXYL) 100 mcg daily. tablet metoprolol Take 1 tablet 30 tablet 0 12/16/2017 01/15/2018 succinate XL (25 mg total) (TOPROL-XL) 25 mg by mouth 24 hr tablet daily for 30 days. flecainide Take 100 mg 0 07/05/2018 Discontinued (TAMBOCOR) 100 MG by mouth 2 tablet (two) times a day. nitrofurantoin, Take 1 14 capsule 0 06/11/2018 06/18/2018 macrocrystal-monohy capsule (100 drate, (MACROBID) mg total) by 100 MG capsule mouth 2 (two) times a day for 7 days. flecainide Take 25 mg by 0 07/16/2018 Discontinued (TAMBOCOR) 50 MG mouth 2 (two) tablet times a day. metoprolol tartrate Take 1 tablet 180 tablet 2 07/07/2018 07/11/2018 Discontinued (LOPRESSOR) 25 mg (25 mg total) tablet by mouth 2 (two) times a day for 270 days. metoprolol tartrate Take 25 mg by 0 07/16/2018 Discontinued (LOPRESSOR) 25 mg mouth 2 (two) tablet times a day. Active Problems Problem Noted Date PAF (paroxysmal atrial fibrillation) 07/14/2018 Encounters Date Type Specialty Care Team Description 08/05/2018 Emergency Emergency Medicine Borjas, Palpitations (Primary Dx); MD Adia Tachycardia; Urinary tract infection without hematuria, site unspecified 07/14/2018 Anesthesia Event Procedural Lino, Cardiology Violet, YUNI 07/14/2018 Surgery Procedural Elie Olsne MD EP COMPLETE EP STUDY Cardiology W ABLATION PULMONARY VEIN CARTO ANESTH [75320 (CPT)] 07/14/2018 - Hospital Encounter Cardiology Elie Olsen MD PAF (paroxysmal atrial fibrillation) ([facility]LY [facility]); 07/16/2018 Meghan Anna Atrial tachycardia ([facility]) MD Ciarra 07/07/2018 Surgery Procedural Elie Olsen MD EP COMPLETE EP STUDY Cardiology W ABLATION SVT CARTO MAC ANESTH [07250 (CPT)] 07/07/2018 Anesthesia Event Procedural Kannan Keith Cardiology YUNI Sorto 07/07/2018 Hospital Encounter Procedural Elie Olsen MD SVT Cardiology (supraventricular tachycardia) ([facility]) 06/11/2018 Emergency Emergency Medicine Umu, Nadir Alvarado, Paroxysmal SVT ( supraventricular tachycardia) (HCC) (Primary Dx); Urinary tract infection without hematuria, site unspecified 06/11/2018 Travel 12/15/2017 - Emergency Emergency Medicine Bina SVT 12/16/2017 MD Adia (supraventricular tachycardia) (Primary Dx) 09/29/2017 Emergency Emergency Medicine Radha, CHANEL Lewis MD (supraventricular tachycardia) (Primary Dx) after 08/06/2017 Social History Tobacco Use Types Packs/Day Years Used Date Former Smoker Smokeless Tobacco: Never Used Alcohol Use Drinks/Week oz/Week Comments Yes on occasion Sex Assigned at Date Recorded Not on file Job Start Date Occupation Industry Not on file Not on file Not on file Travel History Travel Start Travel End No recent travel history available. Last Filed Vital Signs Vital Sign Reading Time Taken Blood Pressure 106/55 08/05/2018 3:30 AM CDT Pulse 54 08/05/2018 3:30 AM CDT Temperature 36.6 C (97.9 F) 08/05/2018 12:45 AM CDT Respiratory Rate 20 08/05/2018 3:30 AM CDT Oxygen Saturation 96% 08/05/2018 3:30 AM CDT Inhaled Oxygen Concentration - - Weight 68 kg (150 lb) 08/05/2018 12:18 AM CDT Height 167.6 cm (5' 6") 08/05/2018 12:18 AM CDT Body Mass Index 24.21 08/05/2018 12:18 AM CDT Plan of Treatment Health Maintenance Due Date Last Done Comments BREAST CANCER SCREENING 1999 COLON CANCER SCREENING 1999 SHINGLES VACCINES (#1) 1999 65+ PNEUMOCOCCAL VACCINE (2 of 2 - PPSV23) 2014 03/05/2015 PNEUMOCOCCAL POLYSACCHARIDE VACCINE AGE 65 AND OVER 2014 INFLUENZA VACCINE 12/14/2017 02/18/2015 Implants Implanted Type Area Computer Console Operator Device Shelf Model / Identifier Expiration Serial / Date Lot System Reveal Linq W/Monitors - [id number] Cardiac N/A: [employer] 2019 LINQSYS / Implanted: 07/14/2018 (Quantity not on file) Pacemakers and N/A CARDIAC RHYTHM / Related DISEASE MGMT [id number] Products Procedures Procedure Name Priority Date/Time Associated Comments Diagnosis GRAM STAIN Routine 08/05/2018 1:39 Results for this AM CDT procedure are in the results section. URINE CULTURE Routine 08/05/2018 1:39 Results for this AM CDT procedure are in the results section. URINALYSIS SCREEN AND Routine 08/05/2018 1:21 Results for this MICROSCOPY, WITH REFLEX AM CDT procedure are in TO CULTURE the results section. ESTIMATED GFR STAT 08/05/2018 1:19 Results for this AM CDT procedure are in the results section. T4, FREE STAT 08/05/2018 1:19 Results for this AM CDT procedure are in the results section. THYROID STIMULATING STAT 08/05/2018 1:19 Results for this HORMONE AM CDT procedure are in the results section. PARTIAL THROMBOPLASTIN STAT 08/05/2018 1:19 Results for this TIME (PTT) AM CDT procedure are in the results section. PROTHROMBIN TIME WITH STAT 08/05/2018 1:19 Results for this INR AM CDT procedure are in the results section. TROPONIN STAT 08/05/2018 1:19 Results for this AM CDT procedure are in the results section. CREATINE KINASE, TOTAL STAT 08/05/2018 1:19 Results for this (CPK) AM CDT procedure are in the results section. COMPREHENSIVE METABOLIC STAT 08/05/2018 1:19 Results for this PANEL AM CDT procedure are in the results section. HC COMPLETE BLD COUNT STAT 08/05/2018 1:19 Results for this W/AUTO DIFF AM CDT procedure are in the results section. ECG 12-LEAD STAT 08/05/2018 12:21 Results for this AM CDT procedure are in the results section. ESTIMATED GFR Routine 07/16/2018 9:00 Results for this AM TUBE OPERATOR procedure are in the results section. MAGNESIUM LEVEL Routine 07/16/2018 9:00 Results for this AM TUBE OPERATOR procedure are in the results section. BASIC METABOLIC PANEL Routine 07/16/2018 9:00 Results for this AM TUBE OPERATOR procedure are in the results section. ECG 12-LEAD Routine 07/16/2018 8:04 Results for this AM TUBE OPERATOR procedure are in the results section. POC GLUCOSE Routine 07/15/2018 9:50 Results for this PM TUBE OPERATOR procedure are in the results section. ECG 12-LEAD Routine 07/15/2018 8:25 Results for this PM TUBE OPERATOR procedure are in the results section. ECG 12-LEAD Routine 07/15/2018 8:59 Results for this AM TUBE OPERATOR procedure are in the results section. ECG 12-LEAD Routine 07/15/2018 4:34 Results for this AM TUBE OPERATOR procedure are in the results section. MAGNESIUM LEVEL Routine 07/15/2018 4:05 Results for this AM TUBE OPERATOR procedure are in the results section. ESTIMATED GFR Routine 07/15/2018 4:05 Results for this AM TUBE OPERATOR procedure are in the results section. BASIC METABOLIC PANEL Routine 07/15/2018 4:05 Results for this AM TUBE OPERATOR procedure are in the results section. HC COMPLETE BLD COUNT Routine 07/15/2018 4:05 Results for this W/AUTO DIFF AM TUBE OPERATOR procedure are in the results section. ECG PRE/POST OP Routine 07/15/2018 3:47 Results for this AM TUBE OPERATOR procedure are in the results section. POC GLUCOSE Routine 07/14/2018 11:32 Results for this PM TUBE OPERATOR procedure are in the results section. EP SUBCUTANEOUS CARDAIC Routine 07/14/2018 2:59 PAF (paroxysmal Results for this RHYTHM MONITOR INSERT W PM TUBE OPERATOR atrial procedure are in PROG fibrillation) ([facility]LY [facility]) the results Atrial tachycardia section. ([facility]) EP COMPLETE EP STUDY W Routine 07/14/2018 2:59 PAF (paroxysmal Results for this ABLATION PULMONARY VEIN PM TUBE OPERATOR atrial procedure are in fibrillation) ([facility]) the results Atrial tachycardia section. ([facility]) ACTIVATED CLOTTING TIME Routine 07/14/2018 2:46 Results for this PM TUBE OPERATOR procedure are in the results section. ACTIVATED CLOTTING TIME Routine 07/14/2018 1:47 Results for this PM TUBE OPERATOR procedure are in the results section. ACTIVATED CLOTTING TIME Routine 07/14/2018 1:02 Results for this PM TUBE OPERATOR procedure are in the results section. ACTIVATED CLOTTING TIME Routine 07/14/2018 12:27 Results for this PM TUBE OPERATOR procedure are in the results section. ARTERIAL LINE Routine 07/14/2018 11:48 AM TUBE OPERATOR Procedure Note - Violet Huynh CRNA - 07/14/2018 11:48 AM TUBE OPERATOR Arterial line Performed by: Violet Huynh CRNA Authorized by: Elpidio Diaz MD Start Time: 07/14/2018 11:19 AM End Time: 07/14/2018 11:24 AM Staff: Anesthesiologist: Elpidio Diaz MD Resident/WORKDAY FIN[employer]CI[employer] CONSULTANT/AA: Violet Huynh CRNA Performed by: Resident/WORKDAY FINANCIALS CONSULTANT/AA Pre-procedure: patient identified, IV checked, site and side verified, risks and benefits discussed, procedure verified, surgical consent complete, patient position confirmed, monitors and equipment checked and pre-op evaluation complete MSBT: antiseptic used, all elements of maximal sterile barrier technique followed, hand hygiene performed, cap/gown used by other personnel and solutions labeled Indications: Indications: multiple ABGs and hemodynamic monitoring Anesthesia: Anesthesia: General Procedure Details: Arterial Line placement: Placed post induction Line placement site: Radial Line placement side: Left Arterial line gauge: 20 G Number of attempts: 1 Ultrasound guidance used: Yes Post-procedure: Post-procedure: Sterile dressing applied Post procedure circulation, sensation, movement: Normal Patient tolerance: Patient tolerated the procedure well with no immediate complications NC AN ELECTIVE ENDOTRACHEAL AIRWAY Routine 07/14/2018 11:44 AM TUBE OPERATOR Procedure Note - Violet Huynh CRNA - 07/14/2018 11:44 AM TUBE OPERATOR Airway Date/Time: 07/14/2018 11:21 AM Performed by: Violet Huynh CRNA Authorized by: Elpidio Diaz MD Location: OR Urgency: Elective Difficult Airway: No Anesthesiologist: Elpidio Diaz MD Resident/WORKDAY FIN[employer]CI[employer] CONSULTANT/AA: Violet Huynh CRNA Performed by: anesthesiologist Preoxygenated with 100% O2: Yes C-spine Precautions Maintained Throughout: Yes Mask Ventilation: Easy mask Final Airway Type: Endotracheal airway Final Endotracheal Airway: ETT Technique Used: Direct laryngoscopy Devices/Methods Used in Placement: Intubating stylet Insertion Site: Oral Blade Type: Rashmi Laryngoscope Blade/Videolaryngoscope Blade Size: 3 ETT Size (mm): 7.0 Measured from: Lips ETT to Lips (cm): 21 Placement Verified by: CO2 detection and direct visualization Laryngoscopic view: Grade I - full view of glottis Rapid Sequence Induction (RSI): No Modified RSI: No Number of Attempts at Approach: 1 ACTIVATED CLOTTING Routine 07/14/2018 11:33 AM Results for this TIME TUBE OPERATOR procedure are in the results section. TYPE AND SCREEN STAT 07/14/2018 9:40 AM Results for this TUBE OPERATOR procedure are in the results section. ECG PRE/POST OP STAT 07/14/2018 9:14 AM Results for this TUBE OPERATOR procedure are in the results section. EP COMPLETE EP STUDY Routine 07/07/2018 10:19 AM SVT Results for this W ABLATION VT TUBE OPERATOR (supraventricu procedure are in the lar results section. tachycardia) (HCC) ARTERIAL LINE Routine 07/07/2018 8:24 AM TUBE OPERATOR Procedure Note - Kannan Keith CRNA - 07/07/2018 8:24 AM TUBE OPERATOR Arterial line Performed by: Kannan Keith CRNA Authorized by: Tasneem Marcum MD Patient Location: OR Staff: Anesthesiologist: Tasneem Marcum MD Resident/YUNI/AA: Kannan Keith CRNA Performed by: Resident/[employer] CONSULTANT/AA Pre-procedure: patient identified, IV checked, site and side verified, risks and benefits discussed, procedure verified, surgical consent complete, patient position confirmed, monitors and equipment checked and pre-op evaluation complete MSBT: antiseptic used, all elements of maximal sterile barrier technique followed, hand hygiene performed, cap/gown used by other personnel and solutions labeled Indications: Indications: multiple ABGs and hemodynamic monitoring Anesthesia: Anesthesia: Local infiltration Procedure Details: Line placement site: Radial Line placement side: Left Arterial line gauge: 20 G Number of attempts: 1 Ultrasound guidance used: Yes Post-procedure: Post-procedure: Sterile dressing applied Post procedure circulation, sensation, movement: Normal and unchanged Patient tolerance: Patient tolerated the procedure well with no immediate complications TYPE AND SCREEN STAT 07/07/2018 6:30 AM TUBE OPERATOR URINALYSIS STAT 06/11/2018 9:46 PM TUBE OPERATOR XR CHEST 1 VW PORTABLE STAT 06/11/2018 8:35 PM TUBE OPERATOR ECG ED PRELIMINARY Routine 06/11/2018 8:33 PM TUBE OPERATOR Results for this INTERPRETATION procedure are in the results section. ECG ED PRELIMINARY Routine 06/11/2018 8:33 PM TUBE OPERATOR Results for this INTERPRETATION procedure are in the results section. NC CRITICAL CARE, ADDL 30 Routine 06/11/2018 8:33 PM TUBE OPERATOR Results for this MIN procedure are in the results section. NC CRITICAL CARE, E/M 30-74 Routine 06/11/2018 8:33 PM TUBE OPERATOR Results for this MINUTES procedure are in the results section. ECG 12-LEAD Routine 06/11/2018 8:15 PM TUBE OPERATOR SMEAR REVIEW STAT 06/11/2018 8:08 PM TUBE OPERATOR ESTIMATED GFR STAT 06/11/2018 8:08 PM TUBE OPERATOR CREATINE KINASE, TOTAL (CPK) STAT 06/11/2018 8:08 PM TUBE OPERATOR TROPONIN, I-STAT STAT 06/11/2018 8:08 PM TUBE OPERATOR HC COMPLETE BLD COUNT W/AUTO STAT 06/11/2018 8:08 PM TUBE OPERATOR Results for this DIFF procedure are in the results section. COMPREHENSIVE METABOLIC STAT 06/11/2018 8:08 PM TUBE OPERATOR Results for this PANEL procedure are in the results section. ECG 12-LEAD STAT 06/11/2018 8:03 PM TUBE OPERATOR XR CHEST 1 VW PORTABLE STAT 12/15/2017 10:29 PM CDT ECG ED PRELIMINARY Routine 12/15/2017 10:18 PM CDT Results for this INTERPRETATION procedure are in the results section. ECG ED PRELIMINARY Routine 12/15/2017 10:18 PM CDT Results for this INTERPRETATION procedure are in the results section. NC CRITICAL CARE, E/M 30-74 Routine 12/15/2017 10:18 PM CDT Results for this MINUTES procedure are in the results section. MANUAL DIFFERENTIAL STAT 12/15/2017 10:18 PM CDT THYROID STIMULATING HORMONE STAT 12/15/2017 10:18 PM CDT ZZESTIMATED GFR STAT 12/15/2017 10:18 PM CDT PARTIAL THROMBOPLASTIN TIME STAT 12/15/2017 10:18 PM CDT Results for this (PTT) procedure are in the results section. PROTHROMBIN TIME WITH INR STAT 12/15/2017 10:18 PM CDT CBC WITH PLATELET AND STAT 12/15/2017 10:18 PM CDT Results for this DIFFERENTIAL procedure are in the results section. B NATRIURETIC PEPTIDE STAT 12/15/2017 10:18 PM CDT CREATINE KINASE, TOTAL (CPK) STAT 12/15/2017 10:18 PM CDT TROPONIN STAT 12/15/2017 10:18 PM CDT COMPREHENSIVE METABOLIC STAT 12/15/2017 10:18 PM CDT Results for this PANEL procedure are in the results section. ECG 12-LEAD Routine 12/15/2017 10:15 PM CDT ECG 12-LEAD Routine 12/15/2017 10:13 PM CDT ECG 12-LEAD Routine 12/15/2017 10:01 PM CDT ECG ED PRELIMINARY Routine 09/29/2017 11:12 AM CDT Results for this INTERPRETATION procedure are in the results section. ECG ED PRELIMINARY Routine 09/29/2017 11:12 AM CDT Results for this INTERPRETATION procedure are in the results section. ECG 12-LEAD Routine 09/29/2017 10:51 AM CDT ECG 12-LEAD STAT 09/29/2017 10:42 AM CDT after 08/06/2017 Results Gram stain (08/05/2018 1:39 AM CDT) Gram stain result Occasional WBC's [facility] No organisms seen Comment: Specimen Information Specimen Source: Urine Specimen Site: Clean catch Specimen Urine Performing Organization Address City/[facility] Centercode Phone Number [facility] DEPARTMENT OF PATHOLOGY AND [address] [place] [phone] Urine culture (08/05/2018 1:39 AM CDT) Urine culture isolate Mixed adonis <=10-3 col/cc [facility] Comment: Specimen Information Specimen Source: Urine Specimen Site: Clean catch Specimen Urine Performing Organization Address City/[facility]/Zipcode Phone Number [facility] DEPARTMENT OF PATHOLOGY AND [address] [place] [id number] [place] [phone] Urinalysis screen and microscopy, with reflex to culture (08/05/2018 1:21 AM CDT) Specimen site Clean catch [facility] Color, UA Yellow YELLOW [facility] Appearance, UA Clear Clear [facility] Specific gravity, UA 1.014 1.005 - 1.030 [facility] pH, UA 5.0 5.0 - 8.0 [facility] Protein, UA Negative Negative [facility] Glucose, UA Negative Negative [facility] Ketones, UA Negative Negative [facility] Bilirubin, UA Negative Negative [facility] Blood, UA Moderate (A) Negative [facility] Nitrite, UA Negative NEGATIVE [facility] Urobilinogen, UA <2.0 <2.0 E.U./dL [facility] Leukocyte esterase, UA Large (A) Negative [facility] Epithelial cells, UA <1 0 - 15 /HPF [facility] WBC, UA 22 (H) 0 - 5 /Hpf [facility] RBC, UA 6 (H) 0 - 5 /HPF [facility] Bacteria, UA None seen None seen [facility] Yeast, UA None seen None Seen [facility] Yeast with pseudohyphae, UA None seen [facility] Specimen Urine Performing Organization Address City/[facility] Centercoaz Phone Number [facility] DEPARTMENT OF PATHOLOGY [address] [place] [address] AND GENOMIC MEDICINE [facility] [address] [facility] [address] [id number] HOSPITAL Estimated GFR (08/05/2018 1:19 AM CDT)Only the most recent of4 resultswithin the time period is included. Estimated GFR 42 (A) mL/min/1.73 m2 [facility] Comment: [facility] CatergoryUnitsInterpretation G1 >=90 Normal or high G2 60-89Mildly decreased [id number] to moderately decreased [id number] to severely decreased G4 15-29Severely decreased G5 <15Kidney failure The eGFR was calculated using the Chronic Kidney Disease Epidemiology Collaboration (CKD-EPI) equation. Interpretation is based on recommendations of the National Kidney Foundation-Kidney Disease Outcomes Quality Initiative (NKF-KDOQI) published in 2014. Specimen Plasma specimen Performing Organization Address City/[facility]/Zipcode Phone Number [facility] DEPARTMENT OF PATHOLOGY [address] [place] [address] Troponin (08/05/2018 1:19 AM CDT)Only the most recent of2 resultswithin the time period is included. Troponin <0.300 0.000 - 0.300 ng/mL [facility] Comment: [facility] The diagnostic value of a single normal or non-diagnostic result is questionable.Serial samples at 2-6 hour intervals are required to rule out acute myocardial injury. Specimen Plasma specimen Performing Organization Address [facility] Centercode Phone Number [facility] DEPARTMENT PATHOLOGY [address] [place] [address] Partial thromboplastin time, activated (08/05/2018 1:19 AM CDT)Only the most recent of2 resultswithin the time period is included. PTT 38.8 (H) 23.0 - 36.0 sec [facility] Comment: [facility] PTT therapeutic range for unfractionated heparin is 66.0-112.0 seconds which corresponds to Anti-Xa 0.3-0.7 U/mL. The reference range has changed starting 10/14/2009 @12:00pm Specimen Blood Performing Organization Address [facility] Centercode Phone Number [facility] DEPARTMENT OF PATHOLOGY [address] [place] [address] [place] [address] HOSPITAL Prothrombin time with INR (08/05/2018 1:19 AM CDT)Only the most recent of2 resultswithin the time period is included. Prothrombin time 24.2 (H) 11.5 - 14.5 sec [facility] INR 2.2 [facility] Comment: [facility] The International Normalized Ratio (INR) is a therapeutic monitoring tool for patients who are stable on oral anticoagulant therapy. An INR of 2.0-3.0 is suggested for deep vein thrombosis/pulmonary embolism. Specimen Blood Performing Organization Address [facility]/Zipcode Phone Number [facility] DEPARTMENT OF PATHOLOGY [address] [place] [address] [place] [address] AND GENOMIC MEDICINE [address] CBC with platelet and differential (08/05/2018 1:19 AM CDT)Only the most recent of4 resultswithin the time period is included. WBC 7.2 4.5 - 11.0 k/uL [facility] RBC 3.91 (L) 4.20 - 5.50 M/uL [facility] HGB 12.8 (L) 14.0 - 18.0 g/dL [facility] HCT 39.0 37.0 - 47.0 % [facility] MCV 99.7 82.0 - 100.0 fL [facility] MCH 32.7 27.0 - 34.0 pg [facility] MCHC 32.8 31.0 - 37.0 g/dL [facility] RDW - SD 43.6 37.0 - 55.0 fL [facility] MPV 11.1 8.8 - 13.2 fL [facility] Platelet count 167 150 - 400 K/uL [facility] Nucleated RBC 0.00 /100 WBC [facility] Neutrophils 39.6 39.0 - 69.0 % [facility] Lymphocytes 44.5 25.0 - 45.0 % [facility] Monocytes 10.7 (H) 0.0 - 10.0 % [facility] Eosinophils 4.3 0.0 - 5.0 % [facility] Basophils 0.3 0.0 - 1.0 % [facility] Immature granulocytes 0.6Comment: 0.0 - 1.0 % [facility] "Immature [facility] granulocytes" (promyelocytes, myelocytes, metamyelocytes) Specimen Blood Performing Organization Address City/State/Zipcode Phone Number [facility] DEPARTMENT OF PATHOLOGY [address] [place] [address] AND GENOMIC MEDICINE [address] Thyroid stimulating hormone (08/05/2018 1:19 AM CDT)Only the most recent of2 resultswithin the time period is included. TSH 3.19 0.55 - 4.78 uIU/mL [facility] Specimen Plasma specimen Performing Organization Address City/State/Zipcode Phone Number [facility] DEPARTMENT OF PATHOLOGY [address] [place] [address] T4, free (08/05/2018 1:19 AM CDT) T4, free 1.5 0.8 - 1.8 ng/dL [facility] Specimen Plasma specimen Performing Organization Address [facility] Centercode Phone Number [facility] [facility] DEPARTMENT OF PATHOLOGY [address] [place] [address] Creatine kinase, total (CPK) (08/05/2018 1:19 AM CDT)Only the most recent of3 resultswithin the time period is included. Creatine kinase 52 35 - 200 U/L [facility] Specimen Plasma specimen Performing Organization Address [facility] Phone Number [facility] DEPARTMENT OF PATHOLOGY [address] [place] [address] Comprehensive metabolic panel (08/05/2018 1:19 AM CDT)Only the most recent of3 resultswithin the time period is included. Sodium 141 135 - 148 mEq/L [facility] Potassium 4.1 3.5 - 5.0 mEq/L [facility] Chloride 102 99 - 109 mEq/L [facility] CO2 25 24 - 31 mEq/L [facility] Anion gap 14@ANIO 7 - 15 mEq/L [facility] BUN 18 8 - 24 mg/dL [facility] Creatinine 1.30 (H) 0.50 - 0.90 mg/dL [facility] Glucose 119 (H) 65 - 99 mg/dL [facility] Calcium 9.1 8.6 - 10.6 mg/dL [facility] Protein 6.4 6.3 - 8.2 g/dL [facility] Albumin 4.3 3.5 - 5.0 g/dL [facility] A/G ratio 2.05 0.70 - 3.80 [facility] Alkaline phosphatase 65 30 - 115 U/L [facility] AST 21 15 - 46 U/L [facility] ALT 17 10 - 55 U/L [facility] Total bilirubin 0.3 0.2 - 1.2 mg/dL [facility] Specimen Plasma specimen Performing Organization Address City/[facility] Phone Number [facility] DEPARTMENT OF PATHOLOGY [address] [place] [address] AND GENOMIC MEDICINE [facility] [address] [facility] [address] [id number] HOSPITAL ECG 12 lead (08/05/2018 12:21 AM CDT)Only the most recent of12 resultswithin the time period is included. Ventricular rate 135 [facility] Atrial rate 107 [facility] QRSD interval 134 [facility] QT interval 352 [facility] QTC interval 528 [facility] QRS axis 1 -62 [facility] T wave axis -4 [facility] EKG impression Wide QRS tachycardia-Left axis deviation-Right bundle branch block-Abnormal ECG-In automated comparison with ECG of 16-JUL-2018 08:04,-Wide QRS tachycardia has replaced Sinus rhythm-Vent. rate has incre H MUSE ased BY86 BPM- Narrative Performed At Performing Organization Address City/[facility] Phone Number [facility] [employer] [address] [place] [address] Magnesium level (07/16/2018 9:00 AM TUBE OPERATOR)Only the most recent of2 resultswithin the time period is included. Magnesium 2.1 1.6 - 2.4 mg/dL [facility] Specimen Plasma specimen Performing Organization Address City/[facility] Phone Number [facility] DEPARTMENT OF PATHOLOGY AND [address] [place] [id number] [place] [phone] Basic metabolic panel (07/16/2018 9:00 AM TUBE OPERATOR)Only the most recent of2 resultswithin the time period is included. Sodium 141 135 - 148 mEq/L [facility] Potassium 4.0 3.5 - 5.0 mEq/L [facility] Chloride 106 98 - 112 mEq/L [facility] CO2 24 24 - 31 mEq/L [facility] Anion gap 11@ANIO 7 - 15 mEq/L [facility] BUN 13 8 - 23 mg/dL [facility] Creatinine 1.10 (H) 0.50 - 0.90 mg/dL [facility] Glucose 133 (H) 65 - 99 mg/dL [facility] Calcium 8.6 (L) 8.8 - 10.2 mg/dL [facility] Specimen Plasma specimen Performing Organization Address City/[facility]/Zipcode Phone Number [facility] DEPARTMENT OF PATHOLOGY AND [address] [place] [address] POC glucose (07/15/2018 9:50 PM TUBE OPERATOR)Only the most recent of2 resultswithin the time period is included. POC glucose 105 (H) 65 - 99 mg/dL [facility] Comment: [facility] Notified RN Meter ID: [id number] Gluer And Wedger: Guero Thomas Performing Organization Address City/State/Zipcode Phone Number [facility] DEPARTMENT OF PATHOLOGY AND [address] [place] [address] ECG Pre/Post Op (07/15/2018 3:47 AM TUBE OPERATOR)Only the most recent of2 resultswithin the time period is included. Ventricular rate 60 [facility] Atrial rate 60 [facility] NC interval 198 [facility] QRSD interval 126 [facility] QT interval 460 [facility] QTC interval 460 [facility] P axis 1 64 [facility] QRS axis 1 -4 [facility] MUSE T wave axis -5 [facility] MUSE EKG impression Normal sinus rhythm-Right bundle branch [facility] block-Abnormal ECG-In automated comparison with ECG of 14-JUL-2018 23:23,-No significant change was found- Narrative Performed At Performing Organization Address City/State/Zipcode Phone Number [facility] [address] [place] [address] Cv electrophysiology procedure (07/14/2018 2:59 PM TUBE OPERATOR) Impressions Performed At -Successful pulmonary veins isolation x4 with entrance and exit block HM SYNGO -Left-sided atrial flutter likely with dependent status post successful posterior wall isolation -Septal atrial tachycardia mapped and ablated successfully from the right mid septum -Frequent dissociated firing seen in RPV + Posterior wall seen with high dose Isuprel -No arrhythmia seen at the end with high-dose Isuprel despite aggressive stimulation RECOMMENDATIONS: 1. Monitor on telemetry overnight 2. Bedrest for 4 hours after sheaths removal 3. Restart Xarelto tonight 4. Discontinue metoprolol/flecainide Narrative Performed At DATE OF OPERATION: July 14, 2018 SYNGO SOCIAL SCIENTIST: Elie Olsen MD PREOPERATIVE DIAGNOSES: -Paroxysmal atrial fibrillation -Supraventricular tachycardia -Hypothyroidism POSTOPERATIVE DIAGNOSES: -Paroxysmal atrial fibrillation -Roof-dependent atrial flutter -Septal atrial tachycardia -Hypothyroidism PROCEDURES PERFORMED: -Ultrasound guided vascular access -Afib ablation with PVI -Atrial flutter ablation, different mechanism x2 -Comprehensive EP study -3D mapping -Stimulation after drug infusion -Intra cardiac echocardiography (ICE) -ILR implant COMPLICATIONS: None ESTIMATED BLOOD LOSS: <30cc HISTORY OF PRESENT ILLNESS: In brief, this is a 68 years old female with past medical history as above, with symptomatic tachycardia requiring multiple ER visits.Patient was brought to the EP lab last week for EP study and rapid atrial tachycardia was diagnosed however patient had incessant atrial fibrillation with Isuprel preventing us from mapping her tachycardia and no ablation was done.After discussion in the clinic in detail,patient agreed to present again to the EP lab for comprehensive EP study, atrial fibrillation ablation with pulmonary vein isolation, and A. tach ablation. PROCEDURE IN DETAIL: Consent was obtained from the patient after a full explanation of the risks and benefits of the procedure. The patient was brought to the electrophysiology lab in the fasting state. The patient was prepared and aped in a sterile fashion. General anesthesia with intratracheal ventilation administered by the anesthesia service was used for the procedure. Esophageal temperature monitoring was performed throughout the case using CIRCA catheter. Patient presented to the EP lab in [facility]. Sheaths were placed using modified Seldinger technique. Three venous sheaths (8Fr, long 7Fr and long 9Fr sheath) were placed in the right femoral vein using ultrasound guidance without complication. A intracardiac echocardiography catheter (ICE) was inserted via the 9Fr sheath and advanced into the right atrium and the right ventricle. At baseline, there was no pericardial effusion and normal EF. Using SOUND, the CTI, CS os, fossa, LPVs, RPVs were marked. The left atrium was noted to be moderately enlarged and measured at 5.5cm. The ICE catheter was later used to guide transseptal puncture and monitor for procedure complications. Next, the RFV 8Fr sheath was upgraded to a medium curl Agilis sheath, through which a Indigo BiosystemsTouch SF catheter, DF curve was advanced to the RA, and a Fast Anatomic Map (FAM) was done for the IVC, RA septum, fossa and SVC. A decapolar diagnostic catheter was then advanced into the coronary sinus. Next, we turned out attention to left sided access. After titrating heparin drip to achieve an ACT > 350 sec, transseptal puncture was performed with Proctor long needle (requiring RF) using ICE guidance. Left (16 mmHg) atrial pressure was measured to assess intracardiac filling pressures.There were no complications.Following transseptal puncture, Agilis sheath was advanced into the LA, and the ablator was then exchanged to a DF Pentarray catheter. A detailed 3D electroanatomical and voltage map was created while in sinus rhythm in the left atrium using CARTO mapping system.There was low voltage seen on the posterior wall just posterior to the left pulmonary vein. After exchanging the Pentarray to the ablation catheter, we proceeded to pulmonary veins isolation. The left pulmonary veins were circumferentially isolated as a common os encompassing the areas of low voltage using RF ablation.Left veins were isolated from the first pass. The right pulmonary veins were circumferentially isolated as a common os using RF ablation.Frequent dissociated firing was seen in the right veins. Prior to ablation of right sided veins, pacing was performed and right phrenic nerve course was avoided (PN was captured and avoided and post ablation PN capture was confirmed).30-40 W for 30 sec and impedance drop of 10-15 ohms was targeted in the anterior sites. Posterior sites used 20 W for 8-15 sec, or more frequently high power, short duration lesions (40W for 4-5 secs) were used. Exit and entrance block was confirmed at all 4 veins.We then proceeded with Isuprel infusion with Isuprel of 6 mcg/min patient had rapid atrial tachycardia that conducted one-on-one to the V up to 220 bpm.Shortly after the tachycardia spontaneously degenerated into a A. fib that they quickly reorganized into left-sided flutter was earlier on the CS 1 to with eccentric activation: tachycardia cycle length was 210 ms.Entrainment from the posterior wall was in and this was thought to be roof or posterior wall dependent. Atrial flutter then terminated spontaneously.We decided then to proceed with posterior wall isolation"Posterior wall was then isolated with roof and floor line between the 2 PVs.Additional lesions were needed at the roof and the middle of the PW to achieve isolation.Of note independent finding was also seen clearly from the posterior wall with no exit . There was entrance and exit block to the posterior wall with no exit at high output pacing.The left and right pulmonary veins were confirmed to remain isolated. Isuprel infusion was started again and at this time atrial tachycardia was spontaneously reinduced either spontaneously or with burst pacing, tachycardia cycle length was 250-260 ms with activation on the CSbeing concentric with an 1:1 conduction to the ventricle.This is thought to be her clinical tachycardia.Blood pressure was very low during tachycardia requiring high amount of pressors to maintain an a MAP of 50mmHg or higher.While in tachycardia the left atrium was mapped with the earlier signal seemed to be originating from the septum therefore the sheath was pulled into the right atrium and the tachycardia was mapped into the RA with early signal was seen on the on the other side of the atrial septum on the right side,somewhat in the middle between the anterior His and posterior transseptal.Penta array was then exchanged to the ablation catheter and attempts to entrainment from the earliest spot were unsuccessful however ablation there was performed and within a few seconds the tachycardia slowed then terminated.Tachycardia was no longer seen for the rest of this case.Additional lesions were placed there about 30-40 W with very careful attention to NC conduction.Ablation at the earliest site was about 20 mm away from the His on the map. Following this Isuprel was increased to up to 20 mcg/min.All 4 veins were checked and confirmed to remain isolated.Posterior wall has reconnectedand additional lesions were needed to achieve reisolation with exit block at high output pacing.With high Isuprel infusion and aggressive burst pacing, in addition to atrial singles and doubles no more tachycardia was seen. At this time case was ended. Basic EPS revealed HV interval was measured at 44msec and AH=78. WPYEI=[id number], concentric and midline. RVYBT=[id number], Atria ERP was obtained at 500/230ms. Post-procedure ICE showed no pericardial effusion.Catheters were removed and sheath was pulled and the [id number] sutures were placed in the groin. Following this our attention was turned to the left chest area.After sterilely prepping the left side of the chest 2% lidocaine were injected at the skin overlying the fourth left parasternal rib space.Using the usual tool and implantable loop recorder (linQ) was injected under the skin and the incision was closed with 2 interrupted Vicryl sutures then sealed with surgical adhesive. At this time, GA was stopped and patient was extubated; No immediate complications. Protamine was given at the end of the procedure.Patient was transferred to the PACU in a stable condition. Performing Organization Address [facility] Phone Number [facility] [address] [place] [address] Activated clotting time (07/14/2018 2:46 PM TUBE OPERATOR)Only the most recent of5 resultswithin the time period is included. Activated clotting time 116 96 - 152 sec [facility] Comment: HOSPITAL Meter ID: [id number] Gluer And Wedger: Lino Lazo Performing Organization Address [facility] Phone Number [facility] DEPARTMENT OF PATHOLOGY AND [address] [place] [id number] GENOMIC MEDICINE [address] [address] Type and screen (07/14/2018 9:40 AM TUBE OPERATOR)Only the most recent of2 resultswithin the time period is included. ABO grouping A [facility] Rh type POS [facility] Antibody screen (gel) NEG [facility] Specimen Blood Performing Organization Address [facility] Phone Number [facility] DEPARTMENT OF PATHOLOGY AND [facility] [place] [address] GENOMIC MEDICINE [facility] [address] [place] [address] Cv electrophysiology procedure (07/07/2018 10:19 AM TUBE OPERATOR) Impressions Performed At -Incessant atrial fibrillation on Isuprel and very fast atypical atrial HM SYNGO flutter (New diagnosis) -Atrial tachycardia with 1:1 Conduction at 210bpm (her clinical SVT), unable to map due to incessant afib RECOMMENDATION: -Bedrest for 4 hours. -Restart flecainide -Start metoprolol 25mg PO BID and Xarelto 20mg daily -Followup in clinic to discuss next step and options availabe -Discharge home later today if stable. Narrative Performed At DATE OF OPERATION: July 07, 2018 SYNGO SOCIAL SCIENTIST: Elie Olsen MD PREOPERATIVE DIAGNOSES: -Supraventricular tachycardia -Hypothyroidism POSTOPERATIVE DIAGNOSES: -Paroxysmal atrial fibrillation -Atypical atrial flutter -Atrial tachycardia -Hypothyroidism PROCEDURES PERFORMED: -Ultrasound guided vascular access -Comprehensive EP study -LA pacing and recording sqa-Programmed stim after drug infusion -3D mapping -Intra cardiac echocardiography (ICE) COMPLICATIONS: None ESTIMATED BLOOD LOSS:<10cc HISTORY OF PRESENT ILLNESS: In brief, this is a 68 years old F with past medical history of palpitations, with multiple ER visit that would terminate with adenosine.SVT was fast with the rate up to 200-210 bpm with no clear discernible P waves.After consultation with the patient she elected for EP study and ablation if needed for her SVT.SVT was a lot better controlled with flecainide which was stopped 3 days prior to procedure PROCEDURE IN DETAIL: Consent was obtained from the patient after a full explanation of the risks and benefits of the procedure. The patient was brought to the electrophysiology lab in the fasting state. The patient was prepared and draped in a sterile fashion. A Time Out was performed. MAC anesthesia was provided by anesthesia service. The patient arrived to the lab in sinus rhythm. 1% lidocaine was used to anesthetize both groins overlying the femoral veins. Using ultrasound guidance, three sheaths were inserted in the right femoral vein (Long 9Fr, long 6Fr and short 8Fr sheaths) using modified Seldinger technique.Attempt to obtain access on the left femoral vein were tried however the wire could not be advanced past the low IVC/iliac bifurcation.That was confirmed under fluoroscopy and with different wires.Therefore I decided not to obtain left-sided access and another long 7 sheath was added to the right femoral vein. First, ICE catheter was advanced to the RA/RV junction, and baseline anatomy was assessed. EF was normal and there was no pericardial effusion at baseline. ICE catheter was used to assess anatomy, monitor for complications and assist with ablation. Using SOUND feature, the CS os, TV, and other intracardiac structures were marked. Following this, the RFV 8Fr sheath was upgraded to medium curl Agilis sheath, through which a [employer] STSF, DF curve was advanced and FAM map was created of the IVC, RA, SVC, CS and RV down to the apex. A decapolar catheter was then advanced to the CS, and a quad catheters were advanced to the RV apex.The ablation catheter was then advanced to the His position then high RA position respectively and we proceeded then with baseline EPS. Baseline intervals were normal, with no pre-excitation. AH=70ms, HV=36ms. Ventricular pacing demonstrated midline and decrementing VA conduction with VA [id number]. Para Hissian pacing was performed and exhibited a normal amber response, ruling out a septal concealed pathway. Atrial pacing from HRA showed [id number]. With Atrial singles, atrial ERP was was obtained at 800/240. There was no clear AH jump seen (most jump seen was ~30-40msec). With atrial doubles, atrial ERP was reached again prior to AVNERP which was <800/400/200. No clear echo beats seen. There was no AA?RR overlap with straight A pacing. At this time we started Isuprel and repeated stimulation. No SVT was induced with atrial singles, doubles. Straight A pacing however induced fast SVT with 1:1 conduction, JED=156mml which is is her clinical SVT. This was [id number] on CS. VOD showed VAAV response with long PPI-TCL. This was repeated twice. SVT would spontaenouly terminated with a V, never with A. This along with clear absence of dual AVN physiology and method of induction were all suggestive of likely AT as mechanism of SVT. During performing maneuvers however, patient kept going into sustained atrial fibrillation that would eventually break into normal rhtythm spontaneously or organizes into very fast left sided flutter (TCL ~180msec, CS distal to prox). Afib became incessant and was by far the most predominant rhtyhm while on Isuprel and clinical AT was no longer seen. We tried for >90mins to induce AT with programmed stim, on/off isurpoel and during Isurpel washout, however patient would go incessantly into afib (trigger from mid CS was noted) that would later organizes into atypical atrial flutter. At this time, we decided to terminate the procedure with plans to discuss a possible PVI/left sided flutter/AT abaltion at another time after discussing options with patient. Procedure was successfully terminated. Repeat ICE images showed no effusion. Catheters were removed outside of the body and the sheaths were removed and manual pressure applied. Patient was awoken from anesthesia intact. There was no acute complication. Performing Organization Address City/[facility]/Zipcode Phone Number [employer] [address] [place] [address] Urinalysis (06/11/2018 9:46 PM TUBE OPERATOR) Glucose, UA Negative Negative [facility] Bilirubin, UA Negative Negative [facility] Ketones, UA Negative Negative [facility] Specific gravity, UA 1.010 1.005 - 1.030 [facility] Blood, UA Trace (A) Negative [facility] pH, UA 5.5 5.0 - 8.0 [facility] Protein, UA Negative Negative [facility] Urobilinogen, UA <2.0 <2.0 [facility] Nitrite, UA Negative Negative [facility] Leukocyte esterase, UA Moderate (A) Negative [facility] Color, UA Yellow [facility] Appearance, UA Clear [facility] Specimen Urine Performing Organization Address City/[facility]/Zipcode Phone Number DEPARTMENT OF PATHOLOGY [address] [address] [place] [address] AND GENOMIC MEDICINE, [facility] [address] [place] [address] XR Chest 1 Vw Portable (06/11/2018 8:35 PM TUBE OPERATOR)Only the most recent of2 resultswithin the time period is included. Narrative Performed At EXAMINATION:XR CHEST 1 VW PORTABLE [facility] CLINICAL HISTORY:Shortness of breath COMPARISON:December 15, 2017 IMPRESSION: No consolidation or pleural effusion. The heart is normal in size. Trace vascular congestion. No gross pulmonary edema Tiny linear scarring or atelectasis in the left lung. Osseous structures are intact. [facility]-[id number] Procedure Note Hm Interface, Radiology Results Incoming - 06/11/2018 8:53 PM TUBE OPERATOR EXAMINATION: XR CHEST 1 VW PORTABLE CLINICAL HISTORY: Shortness of breath COMPARISON: December 15, 2017 IMPRESSION: No consolidation or pleural effusion. The heart is normal in size. Trace vascular congestion. No gross pulmonary edema Tiny linear scarring or atelectasis in the left lung. Osseous structures are intact. [facility]-[id number] Performing Organization Address City/State/Zipcode Phone Number [facility] [address] [place] [address] ECG ED Preliminary Interpretation - Not an Order (06/11/2018 8:33 PM TUBE OPERATOR)Only the most recent of6 resultswithin the time period is included. Narrative Performed At Nadir Sanz MD 06/11/2018 10:05 PM ECG ED Preliminary Interpretation - Not an Order Performed by: Nadir Sanz MD Authorized by: Nadir Sanz MD ECG reviewed by ED Physician in the absence of a senior hadoop developer: yes Previous ECG: Previous ECG:Compared to current Comparison ECG info:Earlier same day Similarity:Changes noted Interpretation: Interpretation: abnormal Rate: ECG rate:96 ECG rate assessment: normal Rhythm: Rhythm: sinus rhythm Ectopy: Ectopy: PVCs QRS: QRS axis:Indeterminate QRS intervals:Normal Q waves: Q waves:V1 and V2 CRITICAL CARE (06/11/2018 8:33 PM TUBE OPERATOR) Narrative Performed At Nadir Sanz MD 06/11/2018 [...] for this patient from another provider.: no Smear review (06/11/2018 8:08 PM TUBE OPERATOR) Platelet slide review Kody adequate [facility] Enlarged platelets Slight [facility] Specimen Blood Performing Organization Address City/[facility] [facility] Phone [facility] DEPARTMENT OF PATHOLOGY [id number] [place] [address] [address] [place] [address] Troponin, I-Stat (06/11/2018 8:08 PM TUBE OPERATOR) Troponin, I-Stat 0.01 0.00 - 0.08 ng/mL [facility] Comment: CENTER 0.09 - 1.49 ng/mlMay indicate increased risk of acute coronary syndrome. >=1.5 ng/mlConsistent with acute myocardial infarction. The diagnostic value of a single normal or non-diagnostic result is questionable.Serial samples at 2-6 hour intervals are required to rule out acute myocardial injury. Specimen Plasma specimen Performing Organization Address City/[facility] Phone Number DEPARTMENT OF PATHOLOGY [id number] [place] [address] AND [employer] JEANNINE, [address] [place] [id number] CRITICAL CARE (12/15/2017 10:18 PM CDT) Narrative Performed At Adia Borjas MD 12/16/2017 12:06 AM Critical Care Performed by: ADIA BORJAS Authorized by: ADIA BORJAS Critical care provider statement: Critical care time [...] Non Af Amer 45 (A) mL/min/1.73 m2 [facility] DEPARTMENT OF PATHOLOGY AND GENOMIC MEDICINE GFR Af Amer 54 (A) mL/min/1.73 m2 [facility] DEPARTMENT OF Comment: PATHOLOGY AND GENOMIC [...] Americans. Specimen Plasma specimen Performing Organization Address City/State/Zipcode Phone Number [address] [place] [address] [employer] MEDICINE Manual differential (12/15/2017 10:18 PM CDT) Neutrophils 39.0 39.0 - 69.0 % [facility] DEPARTMENT OF PATHOLOGY AND GENOMIC MEDICINE Lymphocytes 45.0 25.0 - 45.0 % [facility] DEPARTMENT OF PATHOLOGY AND GENOMIC MEDICINE Monocytes 10.0 0.0 - 10.0 % [facility] DEPARTMENT OF PATHOLOGY AND GENOMIC MEDICINE Eosinophils 1.0 0.0 - 5.0 % [facility] DEPARTMENT OF PATHOLOGY AND GENOMIC MEDICINE Basophils 1.0 0.0 - 1.0 % [facility] DEPARTMENT OF PATHOLOGY AND GENOMIC MEDICINE Reactive lymphocytes 4 [facility] DEPARTMENT OF PATHOLOGY AND GENOMIC MEDICINE Platelet slide review Adequate [facility] DEPARTMENT OF PATHOLOGY AND GENOMIC MEDICINE Performing Organization Address City/State/Zipcode Phone Number [facility] [address] [place] [address] [place] B natriuretic peptide (12/15/2017 10:18 PM CDT) BNP 178 (H) 0 - 100 pg/mL [facility] DEPARTMENT OF PATHOLOGY AND GENOMIC MEDICINE Specimen Blood Performing Organization Address City/State/Zipcode Phone Number [facility] DEPARTMENT OF PATHOLOGY AND [address] [facility] [address] [place] [address] GENOMIC MEDICINE after 08/06/2017 Insurance Payer Benefit Plan / Group Subscriber ID Type Phone Address [employer] MEDICARE HU[employer] MEDICARE PPO/PFFS/ERS MCR xxxxxxxxx PPO Advance Directives Patient has advance care planning documents on file. For more information, please contact:Evan Alatorre[address] [place] [address]
[2018-08-08 00:10] LABS: Absolute Monocytes 0.8 K/uL (0.1-1.3); Absolute Neutrophil 2.6 K/uL (1.8-8.0); Basophils % 0.5 % (0-1.3); Eosinophils % 5.8 % (0-4.4); Hematocrit 37.8 % (36.0-45.0); Lymphocytes % 44.7 % (15.3-44.8); MPV 9.4 fL (7.6-11.3); Monocytes % 11.1 % (3.3-12.3); RBC Red Blood Cell Count 3.93 M/uL (3.86-4.86)
[2018-08-08 00:11] LABS: BUN Blood Urea Nitrogen 23 mg/dL (7-18); Bicarbonate 31 mmol/L (21-32); Glucose Level 110 mg/dL (74-106); Potassium 4.7 mmol/L (3.5-5.1); Sodium Level 143 mmol/L (136-145); Troponin (Emerg Dept Use Only) < 0.02 ng/mL (0.0-0.045)
--- NOTE | 2018-08-08 00:23 | EDPHYS ---
Physician Documentation [facility] Name: Marcy Naylor Age: 68 yrs Sex: Female : 1950 Arrival Date: 08/07/2018 Time: 23:07 Bed 14 Private MD: Mic Ramirez H ED Physician Cedric Baca HPI: 08/07 23:48 This 68 yrs old Female presents to ER via Ambulatory with complaints of High rn Blood Pressure, Irregular Pulse. 23:48 The patient presents with a history of irregular heart beat. Onset: The rn symptoms/episode began/occurred today. Duration: The patient or guardian reports a single episode, that is still ongoing. Modifying factors: The symptoms are aggravated by nothing. The symptoms are alleviated by nothing. Severity of symptoms: At their worst the symptoms were mild in the emergency department the symptoms are unchanged. The patient has experienced similar episodes in the past. REports hx of tachycardia, afib, SVT, takes sotalol and xarelto for such, has had an ablation, today her heart rate felt slow and irregular, no syncope/sob/chest pain/vomiting. . Historical: - Allergies: 23:24 Adhesives; ea - Home Meds: 23:24 levothyroxine 125 mcg tab 1 tab once daily [Active]; pantoprazole oral oral [Active]; ea Xarelto oral oral [Active]; - PMHx: 23:24 SVT; Hypothyroidism; ea - PSHx: 23:24 Tonsillectomy; Tubal ligation; ea - Immunization history:: Adult Immunizations up to date. - Social history:: Smoking status: Patient/guardian denies using tobacco. - Ebola Screening: : No symptoms or risks identified at this time. - Family history:: not pertinent. - Hospitalizations: : No recent hospitalization is reported. ROS: 23:48 Constitutional: Negative for fever, chills, and weight loss, Eyes: Negative for injury, rn pain, redness, and discharge, Cardiovascular: Negative for chest pain, and edema, Respiratory: Negative for shortness of breath, cough, wheezing, and pleuritic chest pain, Abdomen/GI: Negative for abdominal pain, nausea, vomiting, diarrhea, and constipation, MS/Extremity: Negative for injury and deformity, Skin: Negative for injury, rash, and discoloration, Neuro: Negative for headache, weakness, numbness, tingling, and seizure. Exam: 23:47 ECG was reviewed by the Attending Physician. rn 23:48 Constitutional: This is a well developed, well nourished patient who is awake, alert, rn appears stressed Head/Face: Normocephalic, atraumatic. ENT: MMM Cardiovascular: Bradycardic, irregular, no murmur Respiratory: Lungs have equal breath sounds bilaterally, clear to auscultation Abdomen/GI: soft, non-tender Skin: Warm, dry with normal turgor. Normal color with no rashes, no lesions, and no evidence of cellulitis. MS/ Extremity: Pulses equal, no cyanosis. Neurovascular intact. Full, normal range of motion. Equal circumference. Neuro: Awake and alert, GCS 15, oriented to person, place, time, and situation. Vital Signs: 23:21 BP 141 / 80; Pulse 58; Resp 18; Temp 98.2(O); Pulse Ox 97% on R/A; Weight 68.04 kg; ea Height 5 ft. 6 in. (167.64 cm); 08/08 00:15 BP 123 / 69; Pulse 48; Resp 17; Pulse Ox 96% on R/A; Pain 0/10; ao 08/07 23:21 Body Mass Index 24.21 (68.04 kg, 167.64 cm) ea MDM: 08/07 23:14 Patient medically screened. rn 08/08 00:20 Differential diagnosis: arrythmia, dehydration, stress disorder. Data reviewed: vital rn signs, nurses notes, lab test result(s), EKG, and as a result, I will discharge patient. Counseling: I had a detailed discussion with the patient and/or guardian regarding: the historical points, exam findings, and any diagnostic results supporting the discharge/admit diagnosis, lab results, the need for outpatient follow up, to return to the emergency department if symptoms worsen or persist or if there are any questions or concerns that arise at home. Response to treatment: the patient's symptoms have mildly improved after treatment, and as a result, I will discharge patient. Special discussion: I discussed with the patient/guardian in detail that at this point there is no indication for admission to the hospital. It is understood, however, that if the symptoms persist or worsen the patient needs to return immediately for re-evaluation. Based on the history and exam findings, there is no indication for further emergent testing or inpatient evaluation. I discussed with the patient/guardian the need to see the spinner fixer for further evaluation of the symptoms. ED course: Pt with sinus bradycardia, and PACs, known hx of svt s/p ablation, bradycardia most likely due to sotalol, not hypotensive. Will dc home given labs ok, namely troponin, and advised her to call her spinner fixer in AM for further recs. Return precautions given and understood.. 08/07 23:24 Order name: CBC with Diff; Complete Time: 00:20 rn 08/07 23:24 Order name: Basic Metabolic Panel; Complete Time: 00:20 rn 08/07 23:24 Order name: Troponin (emerg Dept Use Only); Complete Time: 00:20 rn 08/07 23:24 Order name: EKG; Complete Time: 23: rn 08/07 23:24 Order name: EKG - Nurse/Tech; Complete Time: 23:49 rn EC/25 23:47 Rate is 53 beats/min. Rhythm is irregular. Left axis deviation noted. QRS is positive rn in lead I and negative in lead aVF. CT interval is normal. T waves are Normal. No ST changes noted. Clinical impression: Sinus bradycardia. Interpreted by me. Administered Medications: No medications were administered Disposition: 08/08/18 00:23 Discharged to Home. Impression: Palpitations, Bradycardia, unspecified. - Condition is Stable. - Discharge Instructions: Bradycardia, Adult, Palpitations. - Medication Reconciliation Form, Thank You Letter, Antibiotic Education, Prescription Opioid Use form. - Follow up: Private Physician; When: As needed; Reason: Recheck today's complaints, Re-evaluation by your physician. - Problem is new. - Symptoms have improved. Signatures: Dispatcher [employer] EDMS Cedric Baca MD MD rn Ortiz, Alex, RN RN ao Antunez, Elena, RN RN ea Corrections: (The following items were deleted from the chart) 08/08 00:39 00:23 08/08/2018 00:23 Discharged to Home. Impression: Palpitations; Bradycardia, ao unspecified. Condition is Stable. Forms are Medication Reconciliation Form, Thank You Letter, Antibiotic Education, Prescription Opioid Use. Follow up: Private Physician; When: As needed; Reason: Recheck today's complaints, Re-evaluation by your physician. Problem is new. Symptoms have improved. rn
--- NOTE | 2018-08-08 00:23 | ER ---
Nurse's Notes [facility] [place] [place] Name: Marcy Naylor Age: 68 yrs Sex: Female : 1950 Arrival Date: 08/07/2018 Time: 23:07 Bed 14 Private MD: Mic Ramirez H Diagnosis: Palpitations;Bradycardia, unspecified Presentation: 08/07 23:18 Presenting complaint: Patient states: Reports she started feeling like she was having ea irregular heart beat at 8 PM tonight. Reports she had this problem on Tuesday and was treated at the hospital for it. Pt reports she received adenosine the first time. Transition of care: patient was not received from another setting of care. Onset of symptoms was August 07, 2018. Risk Assessment: Do you want to hurt yourself or someone else? Patient reports no desire to harm self or others. Initial Sepsis Screen: Does the patient meet any 2 criteria? No. Patient's initial sepsis screen is negative. Does the patient have a suspected source of infection? No. Patient's initial sepsis screen is negative. Care prior to arrival: None. 23:18 Method Of Arrival: Ambulatory ea 23:18 Acuity: ARABELLA 3 ea Triage Assessment: 23:25 General: Appears in no apparent distress. Behavior is calm, cooperative, appropriate ea for age. Pain: Denies pain. Neuro: Level of Consciousness is awake, alert, obeys commands, Oriented to person, place, time, situation. Cardiovascular: Patient's skin is warm and dry. Derm: Skin is pink, warm \T\ dry. Historical: - Allergies: 23:24 Adhesives; ea - Home Meds: 23:24 levothyroxine 125 mcg tab 1 tab once daily [Active]; pantoprazole oral oral [Active]; ea Xarelto oral oral [Active]; - PMHx: 23:24 SVT; Hypothyroidism; ea - PSHx: 23:24 Tonsillectomy; Tubal ligation; ea - Immunization history:: Adult Immunizations up to date. - Social history:: Smoking status: Patient/guardian denies using tobacco. - Ebola Screening: : No symptoms or risks identified at this time. - Family history:: not pertinent. - Hospitalizations: : No recent hospitalization is reported. Screenin:22 Abuse screen: Denies threats or abuse. Nutritional screening: No deficits noted. ea Tuberculosis screening: No symptoms or risk factors identified. Fall Risk None identified. Assessment: 23:20 General: Appears in no apparent distress. uncomfortable, Behavior is calm, cooperative, ao appropriate for age. Pain: Denies pain. Pain: Pain does not radiate. Pain began 1 day ago. Neuro: No deficits noted. Level of Consciousness is awake, alert, obeys commands, Oriented to person, place, time, situation, Appropriate for age Moves all extremities. Full function Speech is normal, Facial symmetry appears normal, Pupils are PERRLA, Intact. Cardiovascular: Reports palpitations, Capillary refill < 3 seconds Patient's skin is warm and dry. Respiratory: Airway is patent Respiratory effort is even, unlabored, Respiratory pattern is regular, symmetrical. GI: No signs and/or symptoms were reported involving the gastrointestinal system. Abdomen is non-distended. : No signs and/or symptoms were reported regarding the genitourinary system. EENT: No signs and/or symptoms were reported regarding the EENT system. Derm: Skin is intact, Skin temperature is warm. Musculoskeletal: Circulation, motion, and sensation intact. Range of motion: intact in all extremities. 23:49 Reassessment: Started a 20 G IV in the left AC. Pt complained it was painful and asks ao to pulled out. IV was pulled and Dr Baca was notified. Waiting on new orders for IV. Vital Signs: 23:21 BP 141 / 80; Pulse 58; Resp 18; Temp 98.2(O); Pulse Ox 97% on R/A; Weight 68.04 kg; ea Height 5 ft. 6 in. (167.64 cm); 08/08 00:15 BP 123 / 69; Pulse 48; Resp 17; Pulse Ox 96% on R/A; Pain 0/10; ao 08/07 23:21 Body Mass Index 24.21 (68.04 kg, 167.64 cm) ea ED Course: 08/07 23:07 Patient arrived in ED. am2 23:07 Mic Ramirez DO is Private Physician. am2 23:14 Cedric Baca MD is Attending Physician. rn 23:20 Triage completed. ea 23:21 Arm band placed on right wrist. Patient placed in an exam room, on a stretcher, on ea pulse oximetry. 23:22 Patient has correct armband on for positive identification. Bed in low position. Call ea light in reach. Side rails up X2. Pulse ox on. NIBP on. 23:24 Patient maintains SpO2 saturation greater than 95% on room air. ea 23:31 Berny Ascencio, RN is Primary Nurse. ao 08/08 00:33 No provider procedures requiring assistance completed. Patient did not have IV access ao during this emergency room visit. Administered Medications: No medications were administered Outcome: 00:23 Discharge ordered by . rn 00:33 Discharged to home via wheelchair. ao 00:33 Condition: stable 00:33 Discharge instructions given to patient, Instructed on discharge instructions, follow up and referral plans. Demonstrated understanding of instructions, follow-up care, medications. 00:39 Patient left the ED. ao Signatures: Cedric Baca MD MD rn Ortiz, Alex, RN RN Liv Carrizales Elena RN LARRY hyman
--- NOTE | 2018-08-08 09:15 | EKG ---
Test Date: 2018-08-07 Test Time: 23:36:41 Fire Hose Curer: NITIN MEASUREMENT RESULTS: Intervals: Rate: 53 OK: 178 QRSD: 124 QT: 494 QTc: 463 [place]: P: 59 OK: 178 QRS: -42 T: -10 INTERPRETIVE STATEMENTS: Sinus bradycardia with premature supraventricular complexes Left axis deviation Right bundle branch block Abnormal ECG Compared to ECG 06/07/2018 18:11:55 Atrial premature complex(es) now present Right bundle-branch block now present Sinus rhythm no longer present Sinus arrhythmia no longer present Ventricular premature complex(es) no longer present Myocardial infarct finding no longer present Electronically Signed On 08-08-18 09:14:22 CDT by Trace Rowland
== END 2018-08-08 00:39 | disposition home or self-care (01) ==
LOC: ER 23:05
DX: R00.2 Palpitations (principal); R00.1 Bradycardia, unspecified; R03.0 Elevated blood-pressure reading, without diagnosis of hypertension; E03.9 Hypothyroidism, unspecified; Z79.01 Long term (current) use of anticoagulants
CPT/HCPCS: 36415; 80048; 84484; 85025; 93005; 99284

== ENCOUNTER 2018-08-09 22:12 | Emergency (ER) | payer OTHER ==
--- OUTSIDE RECORDS SUMMARY | 2018-08-09 22:15 | XMS REPORT | Clinical Summary ---
:1950 Author Organization [facility] Address [address] [place] [address] Care Team Providers Name Role Phone Jl [...] Cardiology Violet, YUNI 07/14/2018 Surgery Procedural Elie Olsen MD EP COMPLETE EP STUDY Cardiology W ABLATION PULMONARY VEIN CARTO ANESTH [99784 (CPT)] 07/14/2018 - Hospital Encounter Cardiology Elie Olsen MD PAF (paroxysmal atrial fibrillation) ([facility]); 07/16/2018 Meghan Anna Atrial tachycardia ([facility]) MD Ciarra 07/07/2018 Surgery Procedural Elie Olsen MD EP COMPLETE EP STUDY Cardiology W ABLATION SVT CARTO MAC ANESTH [22889 (CPT)] 07/07/2018 Anesthesia Event Procedural Kannan Keith Cardiology YUNI Sorto 07/07/2018 Hospital Encounter Procedural Elie Olsen MD SVT Cardiology (supraventricular tachycardia) ([facility]) 06/11/2018 Emergency Emergency Medicine Umu, Nadir Alvarado, Paroxysmal SVT ( supraventricular tachycardia) (HCC) (Primary Dx); Urinary tract infection without hematuria, site unspecified 06/11/2018 Travel 12/15/2017 - Emergency Emergency Medicine Bina SVT 12/16/2017 MD Adia (supraventricular tachycardia) (Primary Dx) 09/29/2017 Emergency Emergency Medicine Radha, CHANEL Lewis MD (supraventricular tachycardia) (Primary Dx) after 08/08/2017 Social History Tobacco Use Types Packs/Day Years [...] VACCINE 12/14/2017 02/18/2015 Implants Implanted Type Area [employer] Tr[employer] Device Shelf Model / Identifier Expiration Serial / Date Lot System Reveal Linq W/Monitors - [id number] Cardiac N/A: [employer] 2019 LINQSYS / Implanted: 07/14/2018 (Quantity not on file) Pacemakers and N/A CARDIAC RHYTHM / Related DISEASE MGMT [id number] Products Procedures Procedure Name Priority Date/Time Associated Comments Diagnosis ECG ED PRELIMINARY Routine 08/05/2018 2:42 Results for this INTERPRETATION AM CDT procedure are in the results section. ECG ED PRELIMINARY Routine 08/05/2018 2:42 Results for this INTERPRETATION AM CDT procedure are in the results section. GRAM STAIN Routine 08/05/2018 1:39 Results for [...] Routine 07/16/2018 9:00 Results for this AM MIND READER procedure are in the results section. MAGNESIUM LEVEL Routine 07/16/2018 9:00 Results for this AM MIND READER procedure are in the results section. BASIC METABOLIC PANEL Routine 07/16/2018 9:00 Results for this AM MIND READER procedure are in the results section. ECG 12-LEAD Routine 07/16/2018 8:04 Results for this AM MIND READER procedure are in the results section. POC GLUCOSE Routine 07/15/2018 9:50 Results for this PM MIND READER procedure are in the results section. ECG 12-LEAD Routine 07/15/2018 8:25 Results for this PM MIND READER procedure are in the results section. ECG 12-LEAD Routine 07/15/2018 8:59 Results for this AM MIND READER procedure are in the results section. ECG 12-LEAD Routine 07/15/2018 4:34 Results for this AM MIND READER procedure are in the results section. MAGNESIUM LEVEL Routine 07/15/2018 4:05 Results for this AM MIND READER procedure are in the results section. ESTIMATED GFR Routine 07/15/2018 4:05 Results for this AM MIND READER procedure are in the results section. BASIC METABOLIC PANEL Routine 07/15/2018 4:05 Results for this AM MIND READER procedure are in the results section. HC COMPLETE BLD COUNT Routine 07/15/2018 4:05 Results for this W/AUTO DIFF AM MIND READER procedure are in the results section. ECG PRE/POST OP Routine 07/15/2018 3:47 Results for this AM MIND READER procedure are in the results section. POC GLUCOSE Routine 07/14/2018 11:32 Results for this PM MIND READER procedure are in the results section. EP SUBCUTANEOUS CARDAIC Routine 07/14/2018 2:59 PAF (paroxysmal Results for this RHYTHM MONITOR INSERT W PM MIND READER atrial procedure are in PROG fibrillation) ([facility]) the results Atrial tachycardia section. ([facility]) EP COMPLETE EP STUDY W Routine 07/14/2018 2:59 PAF (paroxysmal Results for this ABLATION PULMONARY VEIN PM MIND READER atrial procedure are in fibrillation) ([facility]) the results Atrial tachycardia section. ([facility]) ACTIVATED CLOTTING TIME Routine 07/14/2018 2:46 Results for this PM MIND READER procedure are in the results section. ACTIVATED CLOTTING TIME Routine 07/14/2018 1:47 Results for this PM MIND READER procedure are in the results section. ACTIVATED CLOTTING TIME Routine 07/14/2018 1:02 Results for this PM MIND READER procedure are in the results section. ACTIVATED CLOTTING TIME Routine 07/14/2018 12:27 Results for this PM MIND READER procedure are in the results section. ARTERIAL LINE Routine 07/14/2018 11:48 AM MIND READER Procedure Note - Violet Huynh CRNA - 07/14/2018 11:48 AM MIND READER Arterial line Performed by: Violet Huynh CRNA Authorized by: Elpidio Diaz MD Start Time: 07/14/2018 11:19 AM End Time: 07/14/2018 11:24 AM Staff: Anesthesiologist: Elpidio Diaz MD Resident/ELEVATOR ADJUSTER/AA: Violet Huynh CRNA Performed by: Resident/ELEVATOR ADJUSTER/AA Pre-procedure: patient identified, IV checked, site and [...] the procedure well with no immediate complications VT AN ELECTIVE ENDOTRACHEAL AIRWAY Routine 07/14/2018 11:44 AM MIND READER Procedure Note - Violet Huynh CRNA - 07/14/2018 11:44 AM MIND READER Airway Date/Time: 07/14/2018 11:21 AM Performed by: Violet Huynh CRNA Authorized by: Elpidio Diaz MD Location: OR Urgency: Elective Difficult Airway: No Anesthesiologist: Elpidio Diaz MD Resident/ELEVATOR ADJUSTER/AA: Violet Huynh CRNA Performed by: anesthesiologist Preoxygenated [...] 07/14/2018 11:33 AM Results for this TIME MIND READER procedure are in the results section. TYPE AND SCREEN STAT 07/14/2018 9:40 AM Results for this MIND READER procedure are in the results section. ECG PRE/POST OP STAT 07/14/2018 9:14 AM Results for this MIND READER procedure are in the results section. EP COMPLETE EP STUDY Routine 07/07/2018 10:19 AM SVT Results for this W ABLATION VT MIND READER (supraventricu procedure are in the lar results section. tachycardia) (HCC) ARTERIAL LINE Routine 07/07/2018 8:24 AM MIND READER Procedure Note - Kannan Keith CRNA - 07/07/2018 8:24 AM MIND READER Arterial line Performed by: Kannan Keith CRNA Authorized by: Tasneem Marcum MD Patient Location: OR Staff: Anesthesiologist: Tasneem Marcum MD Resident/YUNI/AA: Kannan Keith CRNA Performed by: Resident/ELEVATOR ADJUSTER/AA Pre-procedure: patient identified, IV checked, site and [...] TYPE AND SCREEN STAT 07/07/2018 6:30 AM MIND READER URINALYSIS STAT 06/11/2018 9:46 PM MIND READER XR CHEST 1 VW PORTABLE STAT 06/11/2018 8:35 PM MIND READER ECG ED PRELIMINARY Routine 06/11/2018 8:33 PM MIND READER Results for this INTERPRETATION procedure are in the results section. ECG ED PRELIMINARY Routine 06/11/2018 8:33 PM MIND READER Results for this INTERPRETATION procedure are in the results section. VT CRITICAL CARE, ADDL 30 Routine 06/11/2018 8:33 PM MIND READER Results for this MIN procedure are in the results section. VT CRITICAL CARE, E/M 30-74 Routine 06/11/2018 8:33 PM MIND READER Results for this MINUTES procedure are in the results section. ECG 12-LEAD Routine 06/11/2018 8:15 PM MIND READER SMEAR REVIEW STAT 06/11/2018 8:08 PM MIND READER ESTIMATED GFR STAT 06/11/2018 8:08 PM MIND READER CREATINE KINASE, TOTAL (CPK) STAT 06/11/2018 8:08 PM MIND READER TROPONIN, I-STAT STAT 06/11/2018 8:08 PM MIND READER HC COMPLETE BLD COUNT W/AUTO STAT 06/11/2018 8:08 PM MIND READER Results for this DIFF procedure are in the results section. COMPREHENSIVE METABOLIC STAT 06/11/2018 8:08 PM MIND READER Results for this PANEL procedure are in the results section. ECG 12-LEAD STAT 06/11/2018 8:03 PM MIND READER XR CHEST 1 VW PORTABLE STAT 12/15/2017 10:29 PM CDT ECG ED PRELIMINARY Routine 12/15/2017 10:18 PM CDT Results for this INTERPRETATION procedure are in the results section. ECG ED PRELIMINARY Routine 12/15/2017 10:18 PM CDT Results for this INTERPRETATION procedure are in the results section. VT CRITICAL CARE, E/M 30-74 Routine 12/15/2017 10:18 [...] 12-LEAD STAT 09/29/2017 10:42 AM CDT after 08/08/2017 Results ECG ED Preliminary Interpretation - Not an Order (08/05/2018 2:42 AM CDT)Only the most recent of8 resultswithin the time period is included. Narrative Performed At Adia Borjas MD 08/09/20181:05 AM ECG ED Preliminary Interpretation - Not an Order Performed by: Adia Borjas MD Authorized by: Adia Borjas MD ECG reviewed by ED Physician in the absence of a behavioral health tech: yes Interpretation: Interpretation: abnormal Quality: Tracing quality:Limited by artifact Rate: ECG rate:0025 ECG rate assessment: normal Rhythm: Rhythm comment:Undetermined due to artifact Ectopy: Ectopy: none QRS: QRS intervals:Wide Conduction: Conduction: abnormal Abnormal conduction: complete RBBB ST segments: ST segments:Non-specific T waves: T waves: non-specific Gram stain (08/05/2018 1:39 AM CDT) Gram stain result Occasional WBC's [facility] No organisms seen Comment: Specimen Information Specimen Source: Urine Specimen Site: Clean catch Specimen Urine Performing Organization Address City/[facility]/Zipcode Phone Number [facility] DEPARTMENT OF PATHOLOGY AND [address] [place] [phone] [place] [phone] Urine culture (08/05/2018 1:39 AM CDT) Urine culture isolate Mixed adonis <=10-3 col/cc [facility] Comment: Specimen Information Specimen Source: Urine Specimen Site: Clean catch Specimen Urine Performing Organization Address City/[facility] Phone Number [facility] DEPARTMENT OF PATHOLOGY AND [address] [place] [phone] [place] [phone] Urinalysis screen and microscopy, with reflex to culture (08/05/2018 1:21 AM CDT) Specimen site Clean catch [facility] Color, UA Yellow YELLOW [facility] Appearance, UA Clear Clear [facility] Specific gravity, UA 1.014 1.005 - 1.030 [facility] pH, UA 5.0 5.0 - 8.0 [facility] Protein, UA Negative Negative [facility] Glucose, UA Negative Negative [facility] Ketones, UA Negative Negative [facility] Bilirubin, UA Negative Negative [facility] Blood, UA Moderate (A) Negative [facility] Nitrite, UA Negative NEGATIVE [facility] Urobilinogen, UA <2.0 <2.0 E.U./dL [facility] Leukocyte esterase, UA Large (A) Negative [facility] Epithelial cells, UA <1 0 - 15 /HPF [facility] WBC, UA 22 (H) 0 - 5 /Hpf [facility] RBC, UA 6 (H) 0 - 5 /HPF [facility] Bacteria, UA None seen None seen [facility] Yeast, UA None seen None Seen [facility] Yeast with pseudohyphae, UA None seen [facility] Specimen Urine Performing Organization Address [facility] Cent[facility]ode Phone Number [facility] DEPARTMENT OF PATHOLOGY [address] [place] [address] Estimated GFR (08/05/2018 1:19 AM CDT)Only the most recent of4 resultswithin the time period is included. Estimated GFR 42 (A) mL/min/1.73 m2 EVAN MARTINEZ Comment: [facility] CatergoryUnitsInterpretation G1 >=90 Normal or high G2 60-89Mildly decreased [id number] to moderately decreased [id number] to severely decreased G4 15-29Severely decreased G5 <15Kidney failure The eGFR was calculated using the Chronic Kidney Disease Epidemiology Collaboration (CKD-EPI) equation. Interpretation is based on recommendations of the National Kidney Foundation-Kidney Disease Outcomes Quality Initiative (NKF-KDOQI) published in 2014. Specimen Plasma specimen Performing Organization Address [facility] Centercode Phone Number [facility] DEPARTMENT OF PATHOLOGY [address] [place] [address] Troponin (08/05/2018 1:19 AM CDT)Only the most recent of2 resultswithin the time period is included. Troponin <0.300 0.000 - 0.300 ng/mL EVAN MARTINEZ Comment: [facility] The diagnostic value of a single normal or non-diagnostic result is questionable.Serial samples at 2-6 hour intervals are required to rule out acute myocardial injury. Specimen Plasma specimen Performing Organization Address [facility] Centercode Phone Number [facility] DEPARTMENT OF PATHOLOGY [address] [place] [address] Partial thromboplastin time, activated (08/05/2018 1:19 AM CDT)Only the most recent of2 resultswithin the time period is included. PTT 38.8 (H) 23.0 - 36.0 sec EVAN MARTINEZ Comment: [facility] PTT therapeutic range for unfractionated heparin is 66.0-112.0 seconds which corresponds to Anti-Xa 0.3-0.7 U/mL. The reference range has changed starting 10/14/2009 @12:00pm Specimen Blood Performing Organization Address City/[facility]/Zipcode Phone Number [facility] DEPARTMENT OF PATHOLOGY [address] [place] [address] Prothrombin time with INR (08/05/2018 1:19 AM CDT)Only the most recent of2 resultswithin the time period is included. Prothrombin time 24.2 (H) 11.5 - 14.5 sec [facility] INR 2.2 [facility] Comment: [facility] The International Normalized Ratio (INR) is a therapeutic monitoring tool for patients who are stable on oral anticoagulant therapy. An INR of 2.0-3.0 is suggested for deep vein thrombosis/pulmonary embolism. Specimen Blood Performing Organization Address [facility]ode Phone Number [facility] DEPARTMENT OF PATHOLOGY [address] [place] [address] CBC with platelet and differential (08/05/2018 1:19 AM CDT)Only the most recent of4 resultswithin the time period is included. WBC 7.2 4.5 - 11.0 k/uL [facility] RBC 3.91 (L) 4.20 - 5.50 M/uL [facility] HGB 12.8 (L) 14.0 - 18.0 g/dL [facility] HCT 39.0 37.0 - 47.0 % [facility] MCV 99.7 82.0 - 100.0 fL [facility] MCH 32.7 27.0 - 34.0 pg [facility] MCHC 32.8 31.0 - 37.0 g/dL [facility] RDW - SD 43.6 37.0 - 55.0 fL [facility] MPV 11.1 8.8 - 13.2 fL [facility] Platelet count 167 150 - 400 K/uL [facility] Nucleated RBC 0.00 /100 WBC [facility] Neutrophils 39.6 39.0 - 69.0 % [facility] Lymphocytes 44.5 25.0 - 45.0 % [facility] Monocytes 10.7 (H) 0.0 - 10.0 % [facility] Eosinophils 4.3 0.0 - 5.0 % [facility] Basophils 0.3 0.0 - 1.0 % [facility] Immature granulocytes 0.6Comment: 0.0 - 1.0 % [facility] "Immature [facility] granulocytes" (promyelocytes, myelocytes, metamyelocytes) Specimen Blood Performing Organization Address City/[facility] Cent[facility]ode Phone Number [facility] DEPARTMENT OF PATHOLOGY [address] [place] [address] Thyroid stimulating hormone (08/05/2018 1:19 AM CDT)Only the most recent of2 resultswithin the time period is included. TSH 3.19 0.55 - 4.78 uIU/mL [facility] Specimen Plasma specimen Performing Organization Address City/[facility] Centercomt Phone Number [facility] DEPARTMENT OF PATHOLOGY [address] [place] [address] T4, free (08/05/2018 1:19 AM CDT) T4, free 1.5 0.8 - 1.8 ng/dL [facility] Specimen Plasma specimen Performing Organization Address City/[facility] Centercode Phone Number [facility] DEPARTMENT OF PATHOLOGY [address] [place] [address] Creatine kinase, total (CPK) (08/05/2018 1:19 AM CDT)Only the most recent of3 resultswithin the time period is included. Creatine kinase 52 35 - 200 U/L [facility] Specimen Plasma specimen Performing Organization Address City/[facility]/Zipcode Phone Number [facility] DEPARTMENT OF PATHOLOGY [address] [place] [address] [address] [place] [address] AND GENOMIC MEDICINE [address] Comprehensive metabolic panel (08/05/2018 1:19 AM CDT)Only the most recent of3 resultswithin the time period is included. Sodium 141 135 - 148 mEq/L [facility] Potassium 4.1 3.5 - 5.0 mEq/L [facility] Chloride 102 99 - 109 mEq/L [facility] CO2 25 24 - 31 mEq/L [facility] Anion gap 14@ANIO 7 - 15 mEq/L [facility] BUN 18 8 - 24 mg/dL [facility] Creatinine 1.30 (H) 0.50 - 0.90 mg/dL [facility] Glucose 119 (H) 65 - 99 mg/dL [facility] Calcium 9.1 8.6 - 10.6 mg/dL [facility] Protein 6.4 6.3 - 8.2 g/dL [facility] Albumin 4.3 3.5 - 5.0 g/dL [facility] A/G ratio 2.05 0.70 - 3.80 [facility] Alkaline phosphatase 65 30 - 115 U/L [facility] AST 21 15 - 46 U/L [facility] ALT 17 10 - 55 U/L [facility] Total bilirubin 0.3 0.2 - 1.2 mg/dL [facility] Specimen Plasma specimen Performing Organization Address City/[facility]/Zipcode Phone Number [facility] DEPARTMENT OF PATHOLOGY [address] [place] [address]. [address] [place] [address] AND GENOMIC MEDICINE [address] ECG 12 lead (08/05/2018 12:21 AM CDT)Only the most recent of12 resultswithin the time period is included. Ventricular rate 135 [facility] Atrial rate 107 [facility] QRSD interval 134 [facility] MUSE QT interval 352 [facility] MUSE QTC interval 528 [facility] MUSE QRS axis 1 -62 [facility] MUSE T wave axis -4 [facility] MUSE EKG impression Wide QRS tachycardia-Left axis deviation-Right bundle branch block-Abnormal ECG-In automated comparison with ECG of 16-JUL-2018 08:04,-Wide QRS tachycardia has replaced Sinus rhythm-Vent. rate has incre [facility] MUSE ased BY86 BPM- Narrative Performed At Performing Organization Address City/[facility] Centercode Phone Number [facility] MUSE [address] [place] [address] Magnesium level (07/16/2018 9:00 AM MIND READER)Only the most recent of2 resultswithin the time period is included. Magnesium 2.1 1.6 - 2.4 mg/dL [facility] Specimen Plasma specimen Performing Organization Address City/[facility] Phone Number [facility] DEPARTMENT OF PATHOLOGY AND [address] [place], [place] [phone] [address] [address] Basic metabolic panel (07/16/2018 9:00 AM MIND READER)Only the most recent of2 resultswithin the time period is included. Sodium 141 135 - 148 mEq/L [facility] Potassium 4.0 3.5 - 5.0 mEq/L [facility] Chloride 106 98 - 112 mEq/L [facility] CO2 24 24 - 31 mEq/L [facility] Anion gap 11@ANIO 7 - 15 mEq/L [facility] BUN 13 8 - 23 mg/dL [facility] Creatinine 1.10 (H) 0.50 - 0.90 mg/dL [facility] Glucose 133 (H) 65 - 99 mg/dL [facility] Calcium 8.6 (L) 8.8 - 10.2 mg/dL [facility] Specimen Plasma specimen Performing Organization Address [facility] Centercode Phone Number [facility] DEPARTMENT OF PATHOLOGY AND [address] [place] [address] [address] POC glucose (07/15/2018 9:50 PM MIND READER)Only the most recent of2 resultswithin the time period is included. POC glucose 105 (H) 65 - 99 mg/dL [facility] Comment: [facility] Notified RN Meter ID: [id number] Account Development Associate: Guero Thomas Performing Organization Address City/[facility] Centercomt Phone Number [facility] DEPARTMENT OF PATHOLOGY AND [address] [place] [address] GENOMIC MEDICINE [facility] [address] [place] [address] ECG Pre/Post Op (07/15/2018 3:47 AM MIND READER)Only the most recent of2 resultswithin the time period is included. Ventricular rate 60 [facility] MUSE Atrial rate 60 [facility] MUSE VT interval 198 [facility] MUSE QRSD interval 126 [facility] QT interval 460 [facility] QTC interval 460 [facility] MUSE P axis 1 64 [facility] MUSE QRS axis 1 -4 [facility] MUSE T wave axis -5 [facility] MUSE EKG impression Normal sinus rhythm-Right bundle branch [facility] MUSE block-Abnormal ECG-In automated comparison with ECG of 14-JUL-2018 23:23,-No significant change was found- Narrative Performed At Performing Organization Address [facility]t Phone Number [facility] MUSE [address] [place] [address] Cv electrophysiology procedure (07/14/2018 2:59 PM MIND READER) Impressions Performed At -Successful pulmonary veins isolation x4 with entrance and exit block SYNGO -Left-sided atrial flutter likely with dependent [...] DATE OF OPERATION: July 14, 2018 SYNGO ACCESS COORDINATOR: Elie Olsen MD PREOPERATIVE DIAGNOSES: -Paroxysmal atrial [...] prepared and draped in a sterile fashion. General anesthesia with intratracheal ventilation administered by the anesthesia service was used for the procedure. Esophageal temperature monitoring was performed throughout the case using CIRCA catheter. Patient presented to the EP lab in NSR. Sheaths were placed using modified Seldinger technique. [...] medium curl Agilis sheath, through which a Venture CatalystsTouch SF catheter, DF curve was advanced to the RA, and a Fast Anatomic Map (FAM) was done for the IVC, RA septum, fossa and SVC. A decapolar diagnostic catheter was then advanced into the coronary sinus. Next, we turned out attention to left sided access. After titrating heparin drip to achieve an ACT > 350 sec, transseptal puncture was performed with [place] long needle (requiring RF) using ICE guidance. [...] 30-40 W with very careful attention to VT conduction.Ablation at the earliest site was about [...] interval was measured at 44msec and AH=78. [id number], concentric and midline. ZIUCN=[id number], Atria ERP was obtained at 500/230ms. Post-procedure ICE showed no pericardial effusion.Catheters were removed and sheath was pulled and the [id number] sutures were placed in the groin. Following [...] in a stable condition. Performing Organization Address City/[facility] Cent[facility]ode Phone Number SYNGO [address] [place] [address] Activated clotting time (07/14/2018 2:46 PM MIND READER)Only the most recent of5 resultswithin the time period is included. Activated clotting time 116 96 - 152 sec [facility] Comment: HOSPITAL Meter ID: [id number] Account Development Associate: Lino Lzao Performing Organization Address City/[facility] Centercode Phone Number [facility] DEPARTMENT OF PATHOLOGY AND [address] [place] [id number] [place] [id number] Type and screen (07/14/2018 9:40 AM MIND READER)Only the most recent of2 resultswithin the time period is included. ABO grouping A [facility] Rh type POS [facility] Antibody screen (gel) NEG [facility] Specimen Blood Performing Organization Address [facility] Phone Number [facility] DEPARTMENT OF PATHOLOGY AND [address] [place] [phone] Cv electrophysiology procedure (07/07/2018 10:19 AM MIND READER) Impressions Performed At -Incessant atrial fibrillation on Isuprel and very fast atypical atrial SYNGO flutter (New diagnosis) -Atrial tachycardia with 1:1 Conduction at 210bpm (her clinical SVT), unable to map due to incessant afib RECOMMENDATION: -Bedrest for 4 hours. -Restart flecainide -Start metoprolol 25mg PO BID and Xarelto 20mg daily -Followup in clinic to discuss next step and options availabe -Discharge home later today if stable. Narrative Performed At DATE OF OPERATION: July 07, 2018 SYNGO ACCESS COORDINATOR: Elie Olsen MD PREOPERATIVE DIAGNOSES: -Supraventricular tachycardia [...] midline and decrementing VA conduction with VA [id number]. Para Hissian pacing was performed and exhibited a normal amber response, ruling out a septal concealed pathway. Atrial pacing from HRA showed [id number]. With Atrial singles, atrial ERP was was [...] however induced fast SVT with 1:1 conduction, [id number]=[id number] which is is her clinical SVT. This was [id number] on CS. VOD showed VAAV response with [...] was no acute complication. Performing Organization Address City/State/Zipcode Phone Number HM SYNGO [address] [place] [address] Urinalysis (06/11/2018 9:46 PM MIND READER) Glucose, UA Negative Negative [facility] Bilirubin, UA Negative Negative [facility] Ketones, UA Negative Negative [facility] Specific gravity, UA 1.010 1.005 - 1.030 [facility] Blood, UA Trace (A) Negative [facility] pH, UA 5.5 5.0 - 8.0 [facility] Protein, UA Negative Negative [facility] Urobilinogen, UA <2.0 <2.0 [facility] Nitrite, UA Negative Negative [facility] Leukocyte esterase, UA Moderate (A) Negative [facility] Color, UA Yellow [facility] Appearance, UA Clear [facility] Specimen Urine Performing Organization Address City/[facility] Centercode Phone Number DEPARTMENT OF PATHOLOGY [address] [place] [phone] AND GENOMIC MEDICINE, [facility] [address] [place] [address] XR Chest 1 Vw Portable (06/11/2018 8:35 PM MIND READER)Only the most recent of2 resultswithin the time period is included. Narrative Performed At EXAMINATION:XR CHEST 1 VW PORTABLE RADIANT CLINICAL HISTORY:Shortness of breath COMPARISON:December 15, 2017 IMPRESSION: No consolidation or pleural effusion. The heart is normal in size. Trace vascular congestion. No gross pulmonary edema Tiny linear scarring or atelectasis in the left lung. Osseous structures are intact. [facility]-[id number] Procedure Note Interface, Radiology Results Incoming - 06/11/2018 8:53 PM MIND READER EXAMINATION: XR CHEST 1 VW PORTABLE CLINICAL HISTORY: Shortness of breath COMPARISON: December 15, 2017 IMPRESSION: No consolidation or pleural effusion. The heart is normal in size. Trace vascular congestion. No gross pulmonary edema Tiny linear scarring or atelectasis in the left lung. Osseous structures are intact. [facility]-[id number] Performing Organization Address City/State/Zipcode Phone Number [facility] [address] [place] [address] CRITICAL CARE (06/11/2018 8:33 PM MIND READER) Narrative Performed At Nadir Sanz MD 06/11/2018 [...] provider.: no Smear review (06/11/2018 8:08 PM MIND READER) Platelet slide review [facility] Enlarged platelets Slight [facility] Specimen Blood Performing Organization Address City/[facility] Centercode Phone Number DEPARTMENT OF PATHOLOGY [address] [place] [address] AND [employer] [place] [address] Troponin, I-Stat (06/11/2018 8:08 PM MIND READER) Troponin, I-Stat 0.01 0.00 - 0.08 ng/mL [facility] Comment: CENTER 0.09 - 1.49 ng/mlMay indicate increased risk of acute coronary syndrome. >=1.5 ng/mlConsistent with acute myocardial infarction. The diagnostic value of a single normal or non-diagnostic result is questionable.Serial samples at 2-6 hour intervals are required to rule out acute myocardial injury. Specimen Plasma specimen Performing Organization Address City/[facility]/Zipcode Phone Number DEPARTMENT OF PATHOLOGY [address] [place] [address] AND [employer], [place] [address] CRITICAL CARE (12/15/2017 10:18 PM CDT) Narrative [...] Non Af Amer 45 (A) mL/min/1.73 m2 [facility] DEPARTMENT OF PATHOLOGY AND GENOMIC MEDICINE GFR Af Amer 54 (A) mL/min/1.73 m2 [facility] DEPARTMENT OF Comment: PATHOLOGY AND GENOMIC Chronic [...] Americans. Specimen Plasma specimen Performing Organization Address City/[facility]/Zipcode Phone Number [facility] AND [address] [facility]. [address] [place] [address] [employer] [facility] Manual differential (12/15/2017 10:18 PM CDT) Neutrophils 39.0 39.0 - 69.0 % [facility] DEPARTMENT OF PATHOLOGY AND GENOMIC MEDICINE Lymphocytes 45.0 25.0 - 45.0 % [facility] DEPARTMENT OF PATHOLOGY AND GENOMIC MEDICINE Monocytes 10.0 0.0 - 10.0 % [facility] DEPARTMENT OF PATHOLOGY AND GENOMIC MEDICINE Eosinophils 1.0 0.0 - 5.0 % [facility] DEPARTMENT OF PATHOLOGY AND GENOMIC MEDICINE Basophils 1.0 0.0 - 1.0 % [facility] DEPARTMENT OF PATHOLOGY AND GENOMIC MEDICINE Reactive lymphocytes 4 [facility] DEPARTMENT OF PATHOLOGY AND GENOMIC MEDICINE Platelet slide review Adequate [facility] DEPARTMENT OF PATHOLOGY AND GENOMIC MEDICINE Performing Organization Address City/[facility]/Zipcode Phone Number [facility] DEPARTMENT OF PATHOLOGY AND [address] [facility] [address] [place] [address] GENOMIC MEDICINE B natriuretic peptide (12/15/2017 10:18 PM CDT) BNP 178 (H) 0 - 100 pg/mL [facility] DEPARTMENT OF PATHOLOGY AND GENOMIC MEDICINE Specimen Blood Performing Organization Address City/[facility]/Zipcode Phone Number [facility] DEPARTMENT OF PATHOLOGY AND [address] [facility] [address] [place] [address] GENOMIC MEDICINE after 08/08/2017 Insurance Payer Benefit Plan / Group Subscriber ID Type Phone Address [employer]NA MEDICARE HU[employer]NA MEDICARE PPO/PFFS/ERS MCR xxxxxxxxx PPO Advance Directives Patient has advance care planning documents on file. For more information, please contact:[place] [address]
[2018-08-09 23:03] LABS: Absolute Lymphocytes (CBC) 3.7 K/uL (0.7-4.9); Absolute Neutrophil 4.1 K/uL (1.8-8.0); Basophils % 0.4 % (0-1.3); Eosinophils % 4.7 % (0-4.4); Hematocrit 42.9 % (36.0-45.0); MPV 9.3 fL (7.6-11.3); Monocytes % 10.5 % (3.3-12.3); RBC Red Blood Cell Count 4.43 M/uL (3.86-4.86)
[2018-08-09 23:04] LABS: Protime INR 1.07
[2018-08-09 23:22] LABS: ALT/SGPT 21 U/L (12-78); AST/SGOT 14 U/L (15-37); Albumin 3.9 g/dL (3.4-5.0); Alkaline Phosphatase 78 U/L (45-117); BUN Blood Urea Nitrogen 24 mg/dL (7-18); Bicarbonate 27 mmol/L (21-32); Bilirubin Direct < 0.1 mg/dL (0-0.2); Bilirubin Total 0.2 mg/dL (0.2-1.0); Glucose Level 156 mg/dL (74-106); Magnesium 2.2 mg/dL (1.8-2.4); NT PRO-BNP 617 pg/mL (<125); Potassium 4.6 mmol/L (3.5-5.1); Sodium Level 142 mmol/L (136-145); Troponin (Emerg Dept Use Only) < 0.02 ng/mL (0.0-0.045)
[2018-08-09] MEDS ORDERED: ADENOSINE 6 MG/ 2ML VIAL IV ONE ×2 (23:24→23:25)
[2018-08-09] MEDS ORDERED: NA CHLORIDE 0.9% 1,000 ML ONE (23:25)
--- NOTE | 2018-08-09 23:36 | ER ---
Nurse's Notes [facility] Name: Marcy Naylor Age: 68 yrs Sex: Female : 1950 Arrival Date: 08/09/2018 Time: 22:16 Bed 3 Private MD: Mic Ramirez H Diagnosis: Typical atrial flutter Presentation: 08/09 22:24 Presenting complaint: Patient states: Chest pain, rapid heart rate that she noticed lp1 around 2029, has not been relieved. Transition of care: patient was not received from another setting of care. Onset of symptoms was August 09, 2018 at 20:30. Risk Assessment: Do you want to hurt yourself or someone else? Patient reports no desire to harm self or others. Initial Sepsis Screen: Does the patient meet any 2 criteria? No. Patient's initial sepsis screen is negative. Does the patient have a suspected source of infection? No. Patient's initial sepsis screen is negative. Care prior to arrival: None. 22:24 Method Of Arrival: Wheelchair lp1 22:24 Acuity: ARABELLA 2 lp1 Historical: - Allergies: 22:29 Adhesives; lp1 22:29 Nitrofurantoin; lp1 - Home Meds: 22:29 Xarelto 20 mg oral tab once daily [Active]; sotalol 80 mg Oral tab 0.5 tab 2 times per lp1 day [Active]; pantoprazole 40 mg oral TbEC 2 times per day [Active]; cephalexin 500 mg Oral cap every 12 hours [Active]; levothyroxine 125 mcg tab 1 tab once daily [Active]; - PMHx: 22:29 Hypothyroidism; SVT; Atrial Fib; lp1 - PSHx: 22:29 Tonsillectomy; Tubal ligation; Cardiac ablasion; lp1 - Immunization history:: Adult Immunizations up to date. - Social history:: Smoking status: Patient/guardian denies using tobacco, the patient reports quitting approximately 20 years ago. - Ebola Screening: : No symptoms or risks identified at this time. Screenin:29 Abuse screen: Denies threats or abuse. Denies injuries from another. Nutritional lp1 screening: No deficits noted. Tuberculosis screening: No symptoms or risk factors identified. 23:02 Fall Risk IV access (20 points). Ambulatory Aid- None/Bed Rest/Nurse Assist (0 pts). jd3 Gait- Weak (10 pts.). Mental Status- Oriented to own ability (0 pts). Total Albert Fall Scale indicates Low Risk Score (25-44 pts). Fall prevention measures have been instituted. Side Rails Up X 2 Placed close to Nursing Station Frequent Obs/Assesments occuring Family Present and informed to notify staff if they need to leave bedside. Assessment: 22:55 General: Appears uncomfortable, Behavior is calm, cooperative, appropriate for age. jd3 Pain: Denies pain. Neuro: Level of Consciousness is awake, alert, obeys commands, Oriented to person, place, time, situation, Appropriate for age Reports dizziness. Cardiovascular: Heart tones present Capillary refill < 3 seconds Patient's skin is warm and dry. Rhythm is irregular. Respiratory: Airway is patent Respiratory effort is even, unlabored, Respiratory pattern is regular, symmetrical, Breath sounds are clear bilaterally. GI: No signs and/or symptoms were reported involving the gastrointestinal system. : No signs and/or symptoms were reported regarding the genitourinary system. EENT: No signs and/or symptoms were reported regarding the EENT system. Derm: Skin is intact, Skin is dry, Skin is normal, Skin temperature is warm. Musculoskeletal: Circulation, motion, and sensation intact. Range of motion: intact in all extremities. 23:34 Reassessment: Patient appears in no apparent distress at this time. Patient and/or jd3 family updated on plan of care and expected duration. Pain level reassessed. Patient is alert, oriented x 3, equal unlabored respirations, skin warm/dry/pink. Patient states feeling better. 08/10 00:13 Reassessment: Patient appears in no apparent distress at this time. Patient and/or jd3 family updated on plan of care and expected duration. Pain level reassessed. Patient is alert, oriented x 3, equal unlabored respirations, skin warm/dry/pink. Patient states feeling better. Vital Signs: 08/09 22:24 BP 96 / 73; Pulse 162; Resp 18; Temp 97.7(O); Pulse Ox 98% on R/A; Weight 68.04 kg; lp1 Height 5 ft. 6 in. (167.64 cm); Pain 3/10; 22:39 BP 106 / 91; Pulse 146; Resp 16; Pulse Ox 98% on R/A; cc3 23:33 BP 116 / 78; Pulse 57; Resp 17 S; Pulse Ox 98% on R/A; jd3 08/10 00:14 BP 103 / 70; Pulse 57; Resp 16 S; Pulse Ox 98% on R/A; jd3 08/09 22:24 Body Mass Index 24.21 (68.04 kg, 167.64 cm) lp1 ED Course: 08/09 22:16 Patient arrived in ED. es 22:17 Mic Ramirez DO is Private Physician. es 22:25 Triage completed. lp1 22:25 Arm band placed on left wrist. lp1 22:30 Inserted saline lock: 22 gauge in right antecubital area, using aseptic technique. jd3 Blood collected. 22:33 Aguila Dubon, LARRY is Primary Nurse. jd3 22:33 Nhan Chowdhury MD is Attending Physician. gs 23:01 X-ray completed. Portable x-ray completed in exam room. Patient tolerated procedure mh1 well. 23:02 XRAY Chest (1 view) In Process Unspecified. EDMS 23:02 Patient has correct armband on for positive identification. Bed in low position. Call jd3 light in reach. Side rails up X 1. Adult w/ patient. 08/10 00:13 No provider procedures requiring assistance completed. IV discontinued, intact, jd3 bleeding controlled, No redness/swelling at site. Pressure dressing applied. Administered Medications: 08/09 23:23 Drug: Adenocard 6 mg Route: IVP; Site: right antecubital; jd3 23:27 Follow up: Response: Marked relief of symptoms; Cardiac rhythm changed jd3 23:23 Drug: NS 0.9% 1000 ml Route: IV; Rate: 1 bolus; Site: right antecubital; jd3 08/10 00:14 Follow up: Response: No adverse reaction; IV Status: Completed infusion jd3 00:14 Follow up: Response: No adverse reaction; IV Status: Completed infusion jd3 Outcome: 08/09 23:36 Discharge ordered by . 08/10 00:13 Discharged to home via wheelchair, with family. jd3 Condition: stable Discharge instructions given to patient, family, Instructed on discharge instructions, follow up and referral plans. Demonstrated understanding of instructions, follow-up care. 00:15 Patient left the ED. jd3 Signatures: Dispatcher [employer] Rosibel Romano Martha 1 Ana Lyon RN RN lp1 Nhan Chowdhury MD MD gs Davies, Jonathon, RN RN jd3 Anu Mcrae 3
--- NOTE | 2018-08-09 23:36 | EDPHYS ---
Physician Documentation [facility] Name: Marcy Naylor Age: 68 yrs Sex: Female : 1950 Arrival Date: 08/09/2018 Time: 22:16 Bed 3 Private MD: Mic Ramirez H ED Physician Nhan Chowdhury HPI: 08/09 23:30 This 68 yrs old Female presents to ER via Wheelchair with complaints of RAPID gs HEART BEAT. 23:30 The patient presents with a history of heart racing. Context: The symptoms occur at gs rest. Onset: The symptoms/episode began/occurred acutely, this morning. Duration: The patient or guardian reports a single episode, that is still ongoing. Modifying factors: The symptoms are aggravated by nothing. Associated signs and symptoms: Pertinent negatives: SOB. Severity of symptoms: At their worst the symptoms were severe in the emergency department the symptoms are unchanged. The patient has experienced similar episodes in the past, multiple times. The patient has been recently seen by a physician: [facility] WITHIN 2 WEEKS. Historical: - Allergies: 22:29 Adhesives; lp1 22:29 Nitrofurantoin; lp1 - Home Meds: 22:29 Xarelto 20 mg oral tab once daily [Active]; sotalol 80 mg Oral tab 0.5 tab 2 times per lp1 day [Active]; pantoprazole 40 mg oral TbEC 2 times per day [Active]; cephalexin 500 mg Oral cap every 12 hours [Active]; levothyroxine 125 mcg tab 1 tab once daily [Active]; - PMHx: 22:29 Hypothyroidism; SVT; Atrial Fib; lp1 - PSHx: 22:29 Tonsillectomy; Tubal ligation; Cardiac ablasion; lp1 - Immunization history:: Adult Immunizations up to date. - Social history:: Smoking status: Patient/guardian denies using tobacco, the patient reports quitting approximately 20 years ago. - Ebola Screening: : No symptoms or risks identified at this time. ROS: 23:30 All other systems are negative. gs Exam: 23:30 Head/Face: Normocephalic, atraumatic. Eyes: Pupils equal round and reactive to light, gs extra-ocular motions intact. Lids and lashes normal. Conjunctiva and sclera are non-icteric and not injected. Cornea within normal limits. Periorbital areas with no swelling, redness, or edema. ENT: Nares patent. No nasal discharge, no septal abnormalities noted. Tympanic membranes are normal and external auditory canals are clear. Oropharynx with no redness, swelling, or masses, exudates, or evidence of obstruction, uvula midline. Mucous membranes moist. 23:30 Neck: Trachea midline, no thyromegaly or masses palpated, and no cervical lymphadenopathy. Supple, full range of motion without nuchal rigidity, or vertebral point tenderness. No Meningismus. Chest/axilla: Normal chest wall appearance and motion. Nontender with no deformity. No lesions are appreciated. Respiratory: Lungs have equal breath sounds bilaterally, clear to auscultation and percussion. No rales, rhonchi or wheezes noted. No increased work of breathing, no retractions or nasal flaring. Abdomen/GI: Soft, non-tender, with normal bowel sounds. No distension or tympany. No guarding or rebound. No evidence of tenderness throughout. Back: No spinal tenderness. No costovertebral tenderness. Full range of motion. Skin: Warm, dry with normal turgor. Normal color with no rashes, no lesions, and no evidence of cellulitis. MS/ Extremity: Pulses equal, no cyanosis. Neurovascular intact. Full, normal range of motion. Neuro: Awake and alert, GCS 15, oriented to person, place, time, and situation. Cranial nerves II-XII grossly intact. Motor strength 5/5 in all extremities. Sensory grossly intact. Cerebellar exam normal. Normal gait. 23:30 Constitutional: The patient appears alert, awake. 23:30 Constitutional: The patient appears in obvious distress, severely distressed. 23:30 Cardiovascular: Rate: tachycardic, Rhythm: regular. 23:30 ECG was reviewed by the Attending Physician. Vital Signs: 22:24 BP 96 / 73; Pulse 162; Resp 18; Temp 97.7(O); Pulse Ox 98% on R/A; Weight 68.04 kg; lp1 Height 5 ft. 6 in. (167.64 cm); Pain 3/10; 22:39 BP 106 / 91; Pulse 146; Resp 16; Pulse Ox 98% on R/A; cc3 23:33 BP 116 / 78; Pulse 57; Resp 17 S; Pulse Ox 98% on R/A; d3 08/10 00:14 BP 103 / 70; Pulse 57; Resp 16 S; Pulse Ox 98% on R/A; jd3 08/09 22:24 Body Mass Index 24.21 (68.04 kg, 167.64 cm) lp1 Procedures: 08/09 23:43 Cardioversion:. Cardioversion: the patient tolerated the procedure well, CHEMICAL. MDM: 22:52 Patient medically screened. 23:30 Differential diagnosis: arrythmia. Data reviewed: vital signs, nurses notes, lab test result(s), EKG. Response to treatment: the patient's symptoms have resolved after treatment, and as a result, I will discharge patient. Physician consultation: DR LIMA WANTS HER CONVERTED AND GIVE RX FOR AMIODARONE. 08/09 22:53 Order name: Basic Metabolic Panel; Complete Time: 23:29 08/09 22:53 Order name: CBC with Diff; Complete Time: 23: 08/09 22:53 Order name: LFT's; Complete Time: 23: 08/09 22:53 Order name: Magnesium; Complete Time: 23: 08/09 22:53 Order name: NT PRO-BNP; Complete Time: 23: 08/09 22:53 Order name: PT-INR; Complete Time: 23: 08/09 22:53 Order name: Troponin (emerg Dept Use Only); Complete Time: 23:29 08/09 22:53 Order name: XRAY Chest (1 view) 08/09 22:53 Order name: EKG; Complete Time: :54 08/09 22:53 Order name: Cardiac monitoring; Complete Time: 23: 08/09 22:53 Order name: EKG - Nurse/Tech; Complete Time: 23: 08/09 22:53 Order name: IV Saline Lock; Complete Time: 23: 08/09 22:53 Order name: Labs collected and sent; Complete Time: 23: 08/09 22:53 Order name: O2 Per Protocol; Complete Time: 23: 08/09 22:53 Order name: O2 Sat Monitoring; Complete Time: 23:04 EC:30 Rate is 147 beats/min. Rhythm is regular. QRS interval is prolonged. QT interval is gs prolonged. T waves are Normal. No ST changes noted. Clinical impression: Atrial Flutter. Interpreted by me. Administered Medications: 23:23 Drug: Adenocard 6 mg Route: IVP; Site: right antecubital; jd3 23:27 Follow up: Response: Marked relief of symptoms; Cardiac rhythm changed jd3 23:23 Drug: NS 0.9% 1000 ml Route: IV; Rate: 1 bolus; Site: right antecubital; jd3 08/10 00:14 Follow up: Response: No adverse reaction; IV Status: Completed infusion jd3 00:14 Follow up: Response: No adverse reaction; IV Status: Completed infusion jd3 Disposition: 08/09/18 23:36 Discharged to Home. Impression: Typical atrial flutter. - Condition is Stable. - Discharge Instructions: Pharmaceutical Cardioversion, Atrial Flutter. - Medication Reconciliation Form, Thank You Letter, Antibiotic Education, Prescription Opioid Use form. - Follow up: Private Physician; When: 1 - 2 days; Reason: Re-evaluation by your physician. Critical care time excluding procedures: 08/09 23:30 Critical care time: Bedside Care: 10 minutes, Consultation: 10 minutes, Family gs Intervention: 10 minutes. Total time: 30 minutes Signatures: Dispatcher [employer] EDMS Ana Lyon RN RN lp1 Nhan Chowdhury MD MD gs Davies, Jonathon, RN RN jd3 Corrections: (The following items were deleted from the chart) 08/10 00:15 08/09 23:36 08/09/2018 23:36 Discharged to Home. Impression: Typical atrial flutter. jd3 Condition is Stable. Forms are Medication Reconciliation Form, Thank You Letter, Antibiotic Education, Prescription Opioid Use. Follow up: Private Physician; When: 1 - 2 days; Reason: Re-evaluation by your physician. gs
--- NOTE | 2018-08-10 05:59 | EKG ---
Test Date: 2018-08-09 Test Time: 22:20:27 Spike Machine Operator: DONI MEASUREMENT RESULTS: Intervals: Rate: 156 ND: QRSD: 114 QT: 304 QTc: 489 [place]: P: ND: QRS: -49 T: 9 INTERPRETIVE STATEMENTS: Atrial flutter with 2 to 1 block or possibly supraventricular tachycardia Left axis deviation Low voltage QRS Right bundle branch block Abnormal ECG Compared to ECG 08/07/2018 23:36:41 Low QRS voltage now present Sinus bradycardia no longer present Atrial premature complex(es) no longer present Electronically Signed On 08-10-18 05:59:28 CDT by Trace Rowland
--- NOTE | 2018-08-10 08:17 | RAD REPORT ---
EXAM DESCRIPTION: Gianni Single View3 11:04 pm CLINICAL HISTORY: Tachycardia COMPARISON: May 2018 FINDINGS: The lungs appear clear of acute infiltrate. The heart is borderline enlarged IMPRESSION: No acute abnormalities displayed
--- NOTE | 2018-08-10 12:44 | EKG ---
Test Date: 2018-08-09 Test Time: 23:22:05 Dog Day Care Attendant: RADHA MEASUREMENT RESULTS: Intervals: Rate: 70 SD: 176 QRSD: 112 QT: 384 QTc: 414 [place]: P: 18 SD: 176 QRS: -62 T: -12 INTERPRETIVE STATEMENTS: Normal sinus rhythm Right bundle branch block Left anterior fascicular block Bifascicular block Abnormal ECG Compared to ECG 08/09/2018 23:20:34 Supraventricular tachycardia no longer present Electronically Signed On 08-10-18 12:44:10 CDT by Trace Rowland
--- NOTE | 2018-08-10 12:45 | EKG ---
Test Date: 2018-08-09 Test Time: 23:20:34 Casing Tier: RADHA MEASUREMENT RESULTS: Intervals: Rate: 147 VT: QRSD: 116 QT: 324 QTc: 507 [place]: P: VT: QRS: -51 T: 12 INTERPRETIVE STATEMENTS: Atrial flutter with 2 to 1 block or supraventricular tachycardia Low voltage QRS Right bundle branch block Left axis Abnormal ECG Compared to ECG 08/09/2018 22:20:27 no significant change from previous ECG Electronically Signed On 08-10-18 12:45:14 CDT by Trace Rowland
== END 2018-08-10 00:15 | disposition home or self-care (01) ==
LOC: ER 22:12
DX: I48.3 Typical atrial flutter (principal); R00.0 Tachycardia, unspecified; I45.10 Unspecified right bundle-branch block; E03.9 Hypothyroidism, unspecified; I48.91 Unspecified atrial fibrillation; Z79.01 Long term (current) use of anticoagulants; Z87.891 Personal history of nicotine dependence
CPT/HCPCS: 92960; 96361; 93005 ×3; 85025; 80048; 36415; 83735; 85610; 80076; 84484; 83880; 71045; 96374; 99284; J0153; J7030

== ENCOUNTER 2018-08-24 11:07 | Emergency (ER) | payer OTHER ==
--- OUTSIDE RECORDS SUMMARY | 2018-08-24 11:11 | XMS REPORT | Clinical Summary ---
:1950 Author Organization [facility] Address [address] [place] [address] Care Team Providers Name Role Phone Jl [...] by mouth 2 (two) times a day. levothyroxine Take 100 mcg 0 07/05/2018 Discontinued [...] mouth 2 (two) tablet times a day. sotalol (BETAPACE) Take 0.5 30 tablet 0 07/16/2018 08/15/2018 80 MG tablet tablets (40 mg total) by mouth 2 (two) times a day for 30 days. cephalexin (KEFLEX) Take 1 14 capsule 0 08/05/2018 08/12/2018 500 MG capsule capsule (500 mg total) by mouth 2 (two) times a day for 7 days. Active Problems Problem Noted Date PAF (paroxysmal atrial fibrillation) 07/14/2018 Encounters Date Type Specialty Care Team Description 08/19/2018 Emergency Emergency Medicine Grady Aparicio Jr., MD (supraventricular tachycardia) ([facility]LY [facility]) (Primary Dx) 08/05/2018 Emergency Emergency Medicine Borjas, Palpitations (Primary Dx); MD Adia Tachycardia; Urinary tract infection without hematuria, site unspecified 07/14/2018 Anesthesia Event Procedural Violet Huynh, Cardiology RN RESEARCH 07/14/2018 Surgery Procedural Elie Olsen MD EP COMPLETE EP STUDY Cardiology W ABLATION PULMONARY VEIN CARTO ANESTH [74850 (CPT)] 07/14/2018 - Hospital Encounter Cardiology Elie Olsen MD PAF (paroxysmal atrial fibrillation) ([facility]LY [facility]); 07/16/2018 Meghan Anna Atrial tachycardia (HCC) MD Ciarra 07/07/2018 Surgery Procedural Elie Olsen MD EP COMPLETE EP STUDY Cardiology W ABLATION SVT CARTO MAC ANESTH [57189 (CPT)] 07/07/2018 Anesthesia Event Procedural Sagar, Kannan Cardiology Edward, RN RESEARCH 07/07/2018 Hospital Encounter Procedural Elie Olsen MD SVT Cardiology (supraventricular tachycardia) ([facility]) 06/11/2018 Emergency Emergency Medicine Nadir Sanz, Paroxysmal SVT ( supraventricular tachycardia) ([facility]) (Primary Dx); Urinary tract infection without hematuria, site unspecified 06/11/2018 Travel 12/15/2017 - Emergency Emergency Medicine CHANEL Borjas 12/16/2017 MD Adia (supraventricular tachycardia) (Primary Dx) 09/29/2017 Emergency Emergency Medicine Joshua Garcia SVT MD (supraventricular tachycardia) (Primary Dx) after 08/23/2017 Social History Tobacco Use Types Packs/Day Years [...] Vital Sign Reading Time Taken Blood Pressure 109/61 08/19/2018 10:15 PM CDT Pulse 58 08/19/2018 10:15 PM CDT Temperature 36.4 C (97.6 F) 08/19/2018 8:30 PM CDT Respiratory Rate 16 08/19/2018 10:15 PM CDT Oxygen Saturation 98% 08/19/2018 10:15 PM CDT Inhaled Oxygen Concentration - - Weight 68 kg (150 lb) 08/19/2018 8:20 PM CDT Height 167.6 cm (5' 6") 08/19/2018 8:20 PM CDT Body Mass Index 24.21 08/19/2018 8:20 PM CDT Plan of Treatment Health Maintenance Due Date Last Done Comments BREAST CANCER SCREENING 1999 COLON CANCER SCREENING 1999 SHINGLES VACCINES (#1) 1999 65+ PNEUMOCOCCAL VACCINE (2 of 2 - PPSV23) 2014 03/05/2015 PNEUMOCOCCAL POLYSACCHARIDE VACCINE AGE 65 AND OVER 2014 INFLUENZA VACCINE 12/14/2018 02/18/2015 Implants Implanted Type Area Wash Driller Helper Device Shelf Model / Identifier Expiration Serial / Date Lot System Reveal Linq W/Monitors - [id number] Cardiac N/A: [employer] 2019 LINQSYS / Implanted: 07/14/2018 (Quantity not on file) Pacemakers and N/A CARDIAC RHYTHM / Related DISEASE [facility] [id number] Products Procedures Procedure Name Priority Date/Time Associated Comments Diagnosis GRAM STAIN Routine 08/19/2018 10:08 Results for this PM CDT procedure are in the results section. URINE CULTURE Routine 08/19/2018 10:08 Results for this PM CDT procedure are in the results section. URINALYSIS SCREEN AND Routine 08/19/2018 9:49 Results for this MICROSCOPY, WITH REFLEX PM CDT procedure are in TO CULTURE the results section. XR CHEST 1 VW PORTABLE STAT 08/19/2018 9:42 Results for this PM CDT procedure are in the results section. T4, FREE STAT 08/19/2018 9:25 Results for this PM CDT procedure are in the results section. THYROID STIMULATING STAT 08/19/2018 9:25 Results for this HORMONE PM CDT procedure are in the results section. ESTIMATED GFR STAT 08/19/2018 9:25 Results for this PM CDT procedure are in the results section. TROPONIN STAT 08/19/2018 9:25 Results for this PM CDT procedure are in the results section. CREATINE KINASE, TOTAL STAT 08/19/2018 9:25 Results for this (CPK) PM CDT procedure are in the results section. COMPREHENSIVE METABOLIC STAT 08/19/2018 9:25 Results for this PANEL PM CDT procedure are in the results section. HC COMPLETE BLD COUNT STAT 08/19/2018 9:25 Results for this W/AUTO DIFF PM CDT procedure are in the results section. ECG 12-LEAD Routine 08/19/2018 9:20 Results for this PM CDT procedure are in the results section. ECG 12-LEAD Routine 08/19/2018 9:12 Results for this PM CDT procedure are in the results section. ECG ED PRELIMINARY Routine 08/19/2018 8:52 Results for this INTERPRETATION PM CDT procedure are in the results section. CT CRITICAL CARE, E/M Routine 08/19/2018 8:52 Results for this 30-74 MINUTES PM CDT procedure are in the results section. ECG 12-LEAD STAT 08/19/2018 8:24 Results for this PM CDT procedure are [...] Routine 07/16/2018 9:00 Results for this AM PUMP MACHINE OPERATOR procedure are in the results section. MAGNESIUM LEVEL Routine 07/16/2018 9:00 Results for this AM PUMP MACHINE OPERATOR procedure are in the results section. BASIC METABOLIC PANEL Routine 07/16/2018 9:00 Results for this AM PUMP MACHINE OPERATOR procedure are in the results section. ECG 12-LEAD Routine 07/16/2018 8:04 Results for this AM PUMP MACHINE OPERATOR procedure are in the results section. POC GLUCOSE Routine 07/15/2018 9:50 Results for this PM PUMP MACHINE OPERATOR procedure are in the results section. ECG 12-LEAD Routine 07/15/2018 8:25 Results for this PM PUMP MACHINE OPERATOR procedure are in the results section. ECG 12-LEAD Routine 07/15/2018 8:59 Results for this AM PUMP MACHINE OPERATOR procedure are in the results section. ECG 12-LEAD Routine 07/15/2018 4:34 Results for this AM PUMP MACHINE OPERATOR procedure are in the results section. MAGNESIUM LEVEL Routine 07/15/2018 4:05 Results for this AM PUMP MACHINE OPERATOR procedure are in the results section. ESTIMATED GFR Routine 07/15/2018 4:05 Results for this AM PUMP MACHINE OPERATOR procedure are in the results section. BASIC METABOLIC PANEL Routine 07/15/2018 4:05 Results for this AM PUMP MACHINE OPERATOR procedure are in the results section. HC COMPLETE BLD COUNT Routine 07/15/2018 4:05 Results for this W/AUTO DIFF AM PUMP MACHINE OPERATOR procedure are in the results section. ECG PRE/POST OP Routine 07/15/2018 3:47 Results for this AM PUMP MACHINE OPERATOR procedure are in the results section. POC GLUCOSE Routine 07/14/2018 11:32 Results for this PM PUMP MACHINE OPERATOR procedure are in the results section. EP SUBCUTANEOUS CARDAIC Routine 07/14/2018 2:59 PAF (paroxysmal Results for this RHYTHM MONITOR INSERT W PM PUMP MACHINE OPERATOR atrial procedure are in PROG fibrillation) ([facility]LY [facility]) the results Atrial tachycardia section. ([facility]) EP COMPLETE EP STUDY W Routine 07/14/2018 2:59 PAF (paroxysmal Results for this ABLATION PULMONARY VEIN PM PUMP MACHINE OPERATOR atrial procedure are in fibrillation) ([facility]) the results Atrial tachycardia section. ([facility]) ACTIVATED CLOTTING TIME Routine 07/14/2018 2:46 Results for this PM PUMP MACHINE OPERATOR procedure are in the results section. ACTIVATED CLOTTING TIME Routine 07/14/2018 1:47 Results for this PM PUMP MACHINE OPERATOR procedure are in the results section. ACTIVATED CLOTTING TIME Routine 07/14/2018 1:02 Results for this PM PUMP MACHINE OPERATOR procedure are in the results section. ACTIVATED CLOTTING TIME Routine 07/14/2018 12:27 Results for this PM PUMP MACHINE OPERATOR procedure are in the results section. ARTERIAL LINE Routine 07/14/2018 11:48 AM PUMP MACHINE OPERATOR Procedure Note - Violet Huynh CRNA - 07/14/2018 11:48 AM PUMP MACHINE OPERATOR Arterial line Performed by: Violet Huynh CRNA Authorized by: Elpidio Diaz MD Start Time: 07/14/2018 11:19 AM End Time: 07/14/2018 11:24 AM Staff: Anesthesiologist: Elpidio Diaz MD Resident/RN RESEARCH/AA: Violet Huynh CRNA Performed by: Resident/RN RESEARCH/AA Pre-procedure: patient identified, IV checked, site and [...] the procedure well with no immediate complications CT AN ELECTIVE ENDOTRACHEAL AIRWAY Routine 07/14/2018 11:44 AM PUMP MACHINE OPERATOR Procedure Note - Violet Huynh CRNA - 07/14/2018 11:44 AM PUMP MACHINE OPERATOR Airway Date/Time: 07/14/2018 11:21 AM Performed by: Violet Huynh CRNA Authorized by: Elpidio Diza MD Location: OR Urgency: Elective Difficult Airway: No Anesthesiologist: Elpidio Diaz MD Resident/RN RESEARCH/AA: Violet Huynh CRNA Performed by: anesthesiologist Preoxygenated [...] 07/14/2018 11:33 AM Results for this TIME PUMP MACHINE OPERATOR procedure are in the results section. TYPE AND SCREEN STAT 07/14/2018 9:40 AM Results for this PUMP MACHINE OPERATOR procedure are in the results section. ECG PRE/POST OP STAT 07/14/2018 9:14 AM Results for this PUMP MACHINE OPERATOR procedure are in the results section. EP COMPLETE EP STUDY Routine 07/07/2018 10:19 AM SVT Results for this W ABLATION VT PUMP MACHINE OPERATOR (supraventricu procedure are in the lar results section. tachycardia) (HCC) ARTERIAL LINE Routine 07/07/2018 8:24 AM PUMP MACHINE OPERATOR Procedure Note - Kannan Keith CRNA - 07/07/2018 8:24 AM PUMP MACHINE OPERATOR Arterial line Performed by: Kannan Keith CRNA Authorized by: Tasneem Marcum MD Patient Location: OR Staff: Anesthesiologist: Tasneem Marcum MD Resident/RN RESEARCH/AA: Kannan Keith CRNA Performed by: Resident/RN RESEARCH/AA Pre-procedure: patient identified, IV checked, site and [...] TYPE AND SCREEN STAT 07/07/2018 6:30 AM PUMP MACHINE OPERATOR URINALYSIS STAT 06/11/2018 9:46 PM PUMP MACHINE OPERATOR XR CHEST 1 VW PORTABLE STAT 06/11/2018 8:35 PM PUMP MACHINE OPERATOR ECG ED PRELIMINARY Routine 06/11/2018 8:33 PM PUMP MACHINE OPERATOR Results for this INTERPRETATION procedure are in the results section. ECG ED PRELIMINARY Routine 06/11/2018 8:33 PM PUMP MACHINE OPERATOR Results for this INTERPRETATION procedure are in the results section. CT CRITICAL CARE, ADDL 30 Routine 06/11/2018 8:33 PM PUMP MACHINE OPERATOR Results for this MIN procedure are in the results section. CT CRITICAL CARE, E/M 30-74 Routine 06/11/2018 8:33 PM PUMP MACHINE OPERATOR Results for this MINUTES procedure are in the results section. ECG 12-LEAD Routine 06/11/2018 8:15 PM PUMP MACHINE OPERATOR SMEAR REVIEW STAT 06/11/2018 8:08 PM PUMP MACHINE OPERATOR ESTIMATED GFR STAT 06/11/2018 8:08 PM PUMP MACHINE OPERATOR CREATINE KINASE, TOTAL (CPK) STAT 06/11/2018 8:08 PM PUMP MACHINE OPERATOR TROPONIN, I-STAT STAT 06/11/2018 8:08 PM PUMP MACHINE OPERATOR HC COMPLETE BLD COUNT W/AUTO STAT 06/11/2018 8:08 PM PUMP MACHINE OPERATOR Results for this DIFF procedure are in the results section. COMPREHENSIVE METABOLIC STAT 06/11/2018 8:08 PM PUMP MACHINE OPERATOR Results for this PANEL procedure are in the results section. ECG 12-LEAD STAT 06/11/2018 8:03 PM PUMP MACHINE OPERATOR XR CHEST 1 VW PORTABLE STAT 12/15/2017 10:29 PM CDT ECG ED PRELIMINARY Routine 12/15/2017 10:18 PM CDT Results for this INTERPRETATION procedure are in the results section. ECG ED PRELIMINARY Routine 12/15/2017 10:18 PM CDT Results for this INTERPRETATION procedure are in the results section. CT CRITICAL CARE, E/M 30-74 Routine 12/15/2017 10:18 [...] 12-LEAD STAT 09/29/2017 10:42 AM CDT after 08/23/2017 Results Gram stain (08/19/2018 10:08 PM CDT)Only the most recent of2 resultswithin the time period is included. Gram stain result Occasional WBC's [facility] Occasional Gram positive rods Moderate Gram positive cocci in chains Comment: Specimen Information Specimen Source: Urine Specimen Site: Clean catch Specimen Urine Performing Organization Address City/[facility] Centercode Phone Number [facility] DEPARTMENT OF PATHOLOGY AND [address] [place] [address] [address] Urine culture (08/19/2018 10:08 PM CDT)Only the most recent of2 resultswithin the time period is included. Urine culture isolate No growth after 24 hours [facility] Comment: Specimen Information Specimen Source: Urine Specimen Site: Clean catch Specimen Urine Performing Organization Address City/[facility]/Zipcode Phone Number [facility] DEPARTMENT OF PATHOLOGY AND [address] [place] [address] [address] Urinalysis screen and microscopy, with reflex to culture (08/19/2018 9:49 PM CDT)Only the most recent of2 resultswithin the time period is included. Specimen site Clean catch [facility] Color, UA Colorless YELLOW [facility] Appearance, UA Clear Clear [facility] Specific gravity, UA 1.004 (A) 1.005 - 1.030 [facility] pH, UA 6.0 5.0 - 8.0 [facility] Protein, UA Negative Negative [facility] Glucose, UA Negative Negative [facility] Ketones, UA Negative Negative [facility] Bilirubin, UA Negative Negative [facility] Blood, UA Small (A) Negative [facility] Nitrite, UA Negative NEGATIVE [facility] Urobilinogen, UA <2.0 <2.0 E.U./dL [facility] Leukocyte esterase, UA Trace (A) Negative [facility] Epithelial cells, UA <1 0 - 15 /HPF [facility] WBC, UA 4 0 - 5 /Hpf [facility] RBC, UA 1 0 - 5 /HPF [facility] Bacteria, UA None seen None seen [facility] Yeast, UA None seen None Seen [facility] Yeast with pseudohyphae, UA None seen [facility] Specimen Urine Performing Organization Address City/State/Zipcode Phone Number [facility] DEPARTMENT OF PATHOLOGY [address] [place] [address] AND GENOMIC MEDICINE [facility] [address] [facility] [address] [place] [address] HOSPITAL XR Chest 1 Vw Portable (08/19/2018 9:42 PM CDT)Only the most recent of3 resultswithin the time period is included. Narrative Performed At EXAMINATION: XR CHEST 1 VW PORTABLE RADIANT CLINICAL HISTORY: shortness of breath COMPARISON:06/11/2018 chest x-ray. IMPRESSION: Vascular congestion. No consolidation. No pleural effusion or pneumothorax. Cardiac silhouette is mildly enlarged. No acute osseous abnormalities. [facility]-[id number] Procedure Note Interface, Radiology Results Incoming - 08/19/2018 9:47 PM CDT EXAMINATION: XR CHEST 1 VW PORTABLE CLINICAL HISTORY: shortness of breath COMPARISON: 06/11/2018 chest x-ray. IMPRESSION: Vascular congestion. No consolidation. No pleural effusion or pneumothorax. Cardiac silhouette is mildly enlarged. No acute osseous abnormalities. [facility]-[id number] Performing Organization Address City/[facility]/Zipcode Phone Number GAN[facility] [address] [place] [address] Estimated GFR (08/19/2018 9:25 PM CDT)Only the most recent of5 resultswithin the time period is included. Estimated GFR 57 (A) mL/min/1.73 m2 [facility]ORMON Comment: [facility] CatergoryUnitsInterpretation G1 >=90 Normal or high G2 60-89Mildly decreased [id number] to moderately decreased [id number] to severely decreased G4 15-29Severely decreased G5 <15Kidney failure The eGFR was calculated using the Chronic Kidney Disease Epidemiology Collaboration (CKD-EPI) equation. Interpretation is based on recommendations of the National Kidney Foundation-Kidney Disease Outcomes Quality Initiative (NKF-KDOQI) published in 2014. Specimen Plasma specimen Performing Organization Address [facility] Centercoid Phone Number [facility] DEPARTMENT OF PATHOLOGY [address] [place] [address] Troponin (08/19/2018 9:25 PM CDT)Only the most recent of3 resultswithin the time period is included. Troponin <0.300 0.000 - 0.300 ng/mL [facility] MORMON Comment: [facility] The diagnostic value of a single normal or non-diagnostic result is questionable.Serial samples at 2-6 hour intervals are required to rule out acute myocardial injury. Specimen Plasma specimen Performing Organization Address [facility] Centercoid Phone Number [facility] DEPARTMENT OF PATHOLOGY [address] [place] [address] CBC with platelet and differential (08/19/2018 9:25 PM CDT)Only the most recent of5 resultswithin the time period is included. WBC 8.7 4.5 - 11.0 k/uL [facility] RBC 4.21 4.20 - 5.50 M/uL [facility] HGB 13.8 (L) 14.0 - 18.0 g/dL [facility] HCT 41.3 37.0 - 47.0 % [facility] MCV 98.1 82.0 - 100.0 fL [facility] MCH 32.8 27.0 - 34.0 pg [facility] MCHC 33.4 31.0 - 37.0 g/dL [facility] RDW - SD 42.4 37.0 - 55.0 fL [facility] MPV 11.2 8.8 - 13.2 fL [facility] Platelet count 183 150 - 400 K/uL [facility] Nucleated RBC 0.00 /100 WBC [facility] Neutrophils 44.8 39.0 - 69.0 % [facility] Lymphocytes 40.7 25.0 - 45.0 % [facility] Monocytes 10.8 (H) 0.0 - 10.0 % [facility] Eosinophils 3.1 0.0 - 5.0 % [facility] Basophils 0.3 0.0 - 1.0 % [facility] Immature granulocytes 0.3Comment: 0.0 - 1.0 % [facility] "Immature [facility] granulocytes" (promyelocytes, myelocytes, metamyelocytes) Specimen Blood Performing Organization Address City/State/Zipcode Phone Number [facility] DEPARTMENT OF PATHOLOGY [address] [place] [address] [address] [place] [address] AND GENOMIC MEDICINE [facility] [id number] [place] [address] [address] [place] [address] HOSPITAL Thyroid stimulating hormone (08/19/2018 9:25 PM CDT)Only the most recent of3 resultswithin the time period is included. TSH 1.93 0.55 - 4.78 uIU/mL [facility] Specimen Plasma specimen Performing Organization Address City/[facility]/Zipcode Phone Number [facility] DEPARTMENT OF PATHOLOGY [address] [place] [address] [place] [address] HOSPITAL T4, free (08/19/2018 9:25 PM CDT)Only the most recent of2 resultswithin the time period is included. T4, free 1.6 0.8 - 1.8 ng/dL [facility] Specimen Plasma specimen Performing Organization Address [facility] Centercoid Phone Number [facility] DEPARTMENT OF PATHOLOGY [address] [place] [address] Creatine kinase, total (CPK) (08/19/2018 9:25 PM CDT)Only the most recent of4 resultswithin the time period is included. Creatine kinase 49 35 - 200 U/L [facility] Specimen Plasma specimen Performing Organization Address [facility] [place] Phone Number [facility] DEPARTMENT OF PATHOLOGY [address] [place] [address] Comprehensive metabolic panel (08/19/2018 9:25 PM CDT)Only the most recent of4 resultswithin the time period is included. Sodium 140 135 - 148 mEq/L [facility] Potassium 4.3 3.5 - 5.0 mEq/L [facility] Chloride 100 99 - 109 mEq/L [facility] CO2 28 24 - 31 mEq/L [facility] Anion gap 12@ANIO 7 - 15 mEq/L [facility] BUN 21 8 - 24 mg/dL [facility] Creatinine 1.00 (H) 0.50 - 0.90 mg/dL [facility] Glucose 129 (H) 65 - 99 mg/dL [facility] Calcium 9.6 8.6 - 10.6 mg/dL [facility] Protein 6.9 6.3 - 8.2 g/dL [facility] Albumin 4.5 3.5 - 5.0 g/dL [facility] A/G ratio 1.88 0.70 - 3.80 [facility] Alkaline phosphatase 73 30 - 115 U/L [facility] AST 20 15 - 46 U/L [facility] ALT 11 10 - 55 U/L [facility] Total bilirubin 0.2 0.2 - 1.2 mg/dL [facility] Specimen Plasma specimen Performing Organization Address City/[facility] Centercode Phone Number [facility] DEPARTMENT OF PATHOLOGY [address] [facility] [address] [place] [address] AND GENOMIC MEDICINE [facility] [address] [facility] [address] [place] [address] HOSPITAL ECG 12 lead (08/19/2018 9:20 PM CDT)Only the most recent of15 resultswithin the time period is included. Ventricular rate 67 [facility] Atrial rate [address] interval 164 [facility] QRSD interval 134 [facility] QT interval 410 [facility] QTC interval 433 [facility] P axis 1 38 [facility] QRS axis 1 -74 [facility] T wave axis 20 [facility] EKG impression Normal sinus rhythm-Right bundle branch [facility] block-Left anterior fascicular block-^^^ Bifascicular block ^^^-Abnormal ECG-- Narrative Performed At Performing Organization Address [facility] Centercoid Phone Number [facility] MUSE [address] [place] [address] ECG ED Preliminary Interpretation - Not an Order (08/19/2018 8:52 PM CDT)Only the most recent of9 resultswithin the time period is included. Narrative Performed At Grady Aparicio Jr., MD 08/19/2018 10:59 PM ECG ED Preliminary Interpretation - Not an Order Performed by: Grady Aparicio Jr., MD Authorized by: Grady Aparicio Jr., MD ECG reviewed by ED Physician in the absence of a wan support specialist: yes Interpretation: Interpretation: non-specific Rate: ECG rate:152 ECG rate assessment: tachycardic Rhythm: Rhythm: SVT Ectopy: Ectopy: none QRS: QRS axis:Normal QRS intervals:Normal Conduction: Conduction: abnormal Abnormal conduction: complete RBBB ST segments: ST segments:Non-specific T waves: T waves: non-specific CRITICAL CARE (08/19/2018 8:52 PM CDT) Narrative Performed At Grady Aparicio Jr., MD 08/19/2018 10:59 PM Critical Care Performed by: Grady Aparicio Jr., MD Authorized by: Grady Aparicio Jr., MD Critical care provider statement: Critical care time (minutes):32 Critical care time was exclusive of:Separately billable procedures and treating other patients Critical care was necessary to treat or prevent imminent or life-threatening deterioration of the following conditions:Circulatory failure Critical care was time spent personally by me on the following activities:Development of treatment plan with patient or surrogate, discussions with consultants, evaluation of patient's response to treatment, examination of patient, obtaining history from patient or surrogate, ordering and performing treatments and interventions, ordering and review of radiographic studies, ordering and review of laboratory studies, pulse oximetry, re-evaluation of patient's condition and review of old charts Shakeel 'yes' if you are taking over critical care for this patient from another provider.: no Partial thromboplastin time, activated (08/05/2018 1:19 AM CDT)Only the most recent of2 resultswithin the time period is included. PTT 38.8 (H) 23.0 - 36.0 sec EVAN MARTINEZ Comment: [facility] PTT therapeutic range for unfractionated heparin is 66.0-112.0 seconds which corresponds to Anti-Xa 0.3-0.7 U/mL. The reference range has changed starting 10/14/2009 @12:00pm Specimen Blood Performing Organization Address City/State/Zipcode Phone Number [facility] DEPARTMENT OF PATHOLOGY [address] [place] [address] AND GENOMIC MEDICINE [facility] [address] [facility] [address] [place] [address] HOSPITAL Prothrombin time with INR (08/05/2018 1:19 AM CDT)Only the most recent of2 resultswithin the time period is included. Prothrombin time 24.2 (H) 11.5 - 14.5 sec [facility] INR 2.2 [facility] Comment: [facility] The International Normalized Ratio (INR) is a therapeutic monitoring tool for patients who are stable on oral anticoagulant therapy. An INR of 2.0-3.0 is suggested for deep vein thrombosis/pulmonary embolism. Specimen Blood Performing Organization Address City/[facility]/Zipcode Phone Number [facility] DEPARTMENT OF PATHOLOGY [address] [facility] [address] [place] [address] AND [facility] [address] [facility] [address] [place] [phone] HOSPITAL Magnesium level (07/16/2018 9:00 AM PUMP MACHINE OPERATOR)Only the most recent of2 resultswithin the time period is included. Magnesium 2.1 1.6 - 2.4 mg/dL [facility] Specimen Plasma specimen Performing Organization Address [facility] [place] Phone Number [facility] DEPARTMENT OF PATHOLOGY AND [address] [place] [address] Basic metabolic panel (07/16/2018 9:00 AM PUMP MACHINE OPERATOR)Only the most recent of2 resultswithin the time period is included. Sodium 141 135 - 148 mEq/L [facility] Potassium 4.0 3.5 - 5.0 mEq/L [facility] Chloride 106 98 - 112 mEq/L [facility] CO2 24 24 - 31 mEq/L [facility] Anion gap 11@ANIO 7 - 15 mEq/L [facility] BUN 13 8 - 23 mg/dL [facility] Creatinine 1.10 (H) 0.50 - 0.90 mg/dL [facility] Glucose 133 (H) 65 - 99 mg/dL [facility] Calcium 8.6 (L) 8.8 - 10.2 mg/dL [facility] Specimen Plasma specimen Performing Organization Address [facility] Phone Number [facility] DEPARTMENT OF PATHOLOGY AND [address] [place] [address] POC glucose (07/15/2018 9:50 PM PUMP MACHINE OPERATOR)Only the most recent of2 resultswithin the time period is included. POC glucose 105 (H) 65 - 99 mg/dL [facility] Comment: [facility] Notified RN Meter ID: [id number] Spare Fixer: Guero Thomas Performing Organization Address [facility] Centercode Phone Number [facility] DEPARTMENT OF PATHOLOGY AND [address] [place] [address] GENOMIC MEDICINE [facility] [address] [place] [address] ECG Pre/Post Op (07/15/2018 3:47 AM PUMP MACHINE OPERATOR)Only the most recent of2 resultswithin the time period is included. Ventricular rate 60 [facility]USE Atrial rate [address] interval 198 [facility] QRSD interval 126 [facility] QT interval 460 [facility] M[facility] QTC interval 460 [facility] MUSE P axis 1 64 [facility] MUSE QRS axis 1 -4 [facility] M[facility] T wave axis -5 [facility]USE EKG impression Normal sinus rhythm-Right bundle branch [facility] MUSE block-Abnormal ECG-In automated comparison with ECG of 14-JUL-2018 23:23,-No significant change was found- Narrative Performed At Performing Organization Address [facility] Centercode Phone Number [facility] MUSE [address] [place] [address] Cv electrophysiology procedure (07/14/2018 2:59 PM PUMP MACHINE OPERATOR) Impressions Performed At -Successful pulmonary veins [...] DATE OF OPERATION: July 14, 2018 SYNGO STAFF RADIATION THERAPIST: Elie Olsen MD PREOPERATIVE DIAGNOSES: -Paroxysmal atrial [...] Patient presented to the EP lab in [place]. Sheaths were placed using modified Seldinger technique. [...] medium curl Agilis sheath, through which a [employer] Group[employer] SF catheter, DF curve was advanced to the RA, and a Fast Anatomic Map (FAM) was done for the IVC, RA septum, fossa and SVC. A decapolar diagnostic catheter was then advanced into the coronary sinus. Next, we turned out attention to left sided access. After titrating heparin drip to achieve an ACT > 350 sec, transseptal puncture was performed with [place] long needle (requiring RF) using ICE guidance. [...] 30-40 W with very careful attention to CT conduction.Ablation at the earliest site was about [...] interval was measured at 44msec and AH=78. [id number], concentric and midline. [id number], Atria ERP was obtained at 500/230ms. Post-procedure ICE showed no pericardial effusion.Catheters were removed and sheath was pulled and the [id number] sutures were placed in the groin. Following [...] in a stable condition. Performing Organization Address City/State/Zipcode Phone Number [employer] [address] [place] [address] Activated clotting time (07/14/2018 2:46 PM PUMP MACHINE OPERATOR)Only the most recent of5 resultswithin the time period is included. Activated clotting time 116 96 - 152 sec [facility] Comment: HOSPITAL Meter ID: [id number] Spare Fixer: Lino Violet Performing Organization Address City/[facility]/Zipcode Phone Number [facility] DEPARTMENT OF PATHOLOGY AND [address] [place] [address] Type and screen (07/14/2018 9:40 AM PUMP MACHINE OPERATOR)Only the most recent of2 resultswithin the time period is included. ABO grouping A [facility] Rh type POS [facility] Antibody screen (gel) NEG [facility] Specimen Blood Performing Organization Address City/[facility] Centercoid Phone Number [facility] DEPARTMENT OF PATHOLOGY AND [address] [place] [phone] Cv electrophysiology procedure (07/07/2018 10:19 AM PUMP MACHINE OPERATOR) Impressions Performed At -Incessant atrial fibrillation [...] DATE OF OPERATION: July 07, 2018 SYNGO STAFF RADIATION THERAPIST: Elie Olsen MD PREOPERATIVE DIAGNOSES: -Supraventricular tachycardia [...] midline and decrementing VA conduction with VA [id number]. Para Hissian pacing was performed and exhibited a normal amber response, ruling out a septal concealed pathway. Atrial pacing from HRA showed [id number]. With Atrial singles, atrial ERP was was [...] however induced fast SVT with 1:1 conduction, [id number] which is is her clinical SVT. This was [id number] on CS. VOD showed VAAV response with [...] complication. Performing Organization Address City/State/Zipcode Phone Number [employer] [address] [place] [address] Urinalysis (06/11/2018 9:46 PM PUMP MACHINE OPERATOR) Glucose, UA Negative Negative [facility] Bilirubin, UA Negative Negative [facility] Ketones, UA Negative Negative [facility] Specific gravity, UA 1.010 1.005 - 1.030 [facility] Blood, UA Trace (A) Negative [facility] pH, UA 5.5 5.0 - 8.0 [facility] Protein, UA Negative Negative [facility] Urobilinogen, UA <2.0 <2.0 [facility] Nitrite, UA Negative Negative [facility] Leukocyte esterase, UA Moderate (A) Negative [facility] Color, UA Yellow [facility] Appearance, UA Clear [facility] Specimen Urine Performing Organization Address City/[facility]/Zipcode Phone Number DEPARTMENT OF PATHOLOGY [address] [place] [phone] [address] [facility] [address] [address] CRITICAL CARE (06/11/2018 8:33 PM PUMP MACHINE OPERATOR) Narrative Performed At Nadir Sanz MD [...] provider.: no Smear review (06/11/2018 8:08 PM PUMP MACHINE OPERATOR) Platelet slide review Kody adequate [facility] Enlarged platelets Slight [facility] Specimen Blood Performing Organization Address City/State/Zipcode Phone Number DEPARTMENT OF PATHOLOGY [phone] [address] [address] [facility] [address] [place] [address] Troponin, I-Stat (06/11/2018 8:08 PM PUMP MACHINE OPERATOR) Troponin, I-Stat 0.01 0.00 - 0.08 ng/mL [facility] Comment: CENTER 0.09 - 1.49 ng/mlMay indicate increased risk of acute coronary syndrome. >=1.5 ng/mlConsistent with acute myocardial infarction. The diagnostic value of a single normal or non-diagnostic result is questionable.Serial samples at 2-6 hour intervals are required to rule out acute myocardial injury. Specimen Plasma specimen Performing Organization Address City/State/Zipcode Phone Number DEPARTMENT OF PATHOLOGY [address] [address] [place] [address] [address] [facility] [address] [place] [address] CRITICAL CARE (12/15/2017 10:18 PM CDT) Narrative [...] Non Af Amer 45 (A) mL/min/1.73 m2 [facility] DEPARTMENT OF PATHOLOGY AND [facility]ICINE GFR Af Amer 54 (A) mL/min/1.73 m2 [facility] DEPARTMENT OF Comment: PATHOLOGY AND GENOMIC [...] Americans. Specimen Plasma specimen Performing Organization Address City/[facility]/Zipcode Phone Number [facility] PATHOLOGY AND [address] [place], [place] [address]y. [address] [place] [address] GENOMIC MEDICINE Manual differential (12/15/2017 10:18 PM CDT) Neutrophils 39.0 39.0 - 69.0 % [facility] DEPARTMENT OF PATHOLOGY AND GENOMIC MEDICINE Lymphocytes 45.0 25.0 - 45.0 % [facility] DEPARTMENT OF PATHOLOGY AND GENOMIC MEDICINE Monocytes 10.0 0.0 - 10.0 % [facility] DEPARTMENT OF PATHOLOGY AND GENOMIC MEDICINE Eosinophils 1.0 0.0 - 5.0 % [facility] DEPARTMENT OF PATHOLOGY AND GENOMIC MEDICINE Basophils 1.0 0.0 - 1.0 % [facility] DEPARTMENT OF PATHOLOGY AND GENOMIC MEDICINE Reactive lymphocytes 4 [facility] DEPARTMENT OF PATHOLOGY AND GENOMIC MEDICINE Platelet slide review Adequate [facility] DEPARTMENT OF PATHOLOGY AND GENOMIC MEDICINE Performing Organization Address [facility]oid Phone Number [facility] DEPARTMENT OF PATHOLOGY AND [address] [place], [place] [address]y. [address] [place] [phone] [facility] MEDICINE B natriuretic peptide (12/15/2017 10:18 PM CDT) BNP 178 (H) 0 - 100 pg/mL [facility] DEPARTMENT OF PATHOLOGY AND GENOMIC MEDICINE Specimen Blood Performing Organization Address City/[facility]oid Phone Number [facility] PATHOLOGY AND [address] [place], [place] [address]y. [address] [place] [phone] GENOMIC MEDICINE after 08/23/2017 Insurance Payer Benefit Plan / Group Subscriber ID Type Phone Address [employer] MEDICARE HU[employer] MEDICARE PPO/PFFS/[facility] xxxxxxxxx PPO Advance Directives Patient has advance care planning documents on file. For more information, please contact:[place] [address]
[2018-08-24 11:31] LABS: Absolute Lymphocytes (CBC) 3.8 K/uL (0.7-4.9); Absolute Monocytes 0.9 K/uL (0.1-1.3); Absolute Neutrophil 3.5 K/uL (1.8-8.0); Basophils % 0.7 % (0-1.3); Eosinophils % 2.9 % (0-4.4); Hematocrit 42.6 % (36.0-45.0); Lymphocytes % 44.8 % (15.3-44.8); MPV 8.8 fL (7.6-11.3); Monocytes % 10.1 % (3.3-12.3); RBC Red Blood Cell Count 4.47 M/uL (3.86-4.86)
[2018-08-24] MEDS ORDERED: ADENOSINE 6 MG/ 2ML VIAL IV ONE (11:31)
[2018-08-24] MEDS ORDERED: NA CHLORIDE 0.9% 1,000 ML ONE (11:31)
[2018-08-24 11:49] LABS: BUN Blood Urea Nitrogen 20 mg/dL (7-18); Bicarbonate 30 mmol/L (21-32); Glucose Level 101 mg/dL (74-106); Potassium 4.2 mmol/L (3.5-5.1); Sodium Level 141 mmol/L (136-145); Troponin (Emerg Dept Use Only) < 0.02 ng/mL (0.0-0.045)
[2018-08-24 12:33] LABS: Blood Morphology Comment NOT SEEN (NOT SEEN); Platelet Estimate ADEQ
--- NOTE | 2018-08-24 12:36 | ER ---
Nurse's Notes [facility] Name: Marcy Naylor Age: 68 yrs Sex: Female : 1950 Arrival Date: 08/24/2018 Time: 11:10 Bed 4 Private MD: Diagnosis: Supraventricular tachycardia Presentation: 08/24 11:12 Presenting complaint: Patient states: "I started feeling my heart racing about an hr sv ago like last time and I called my doctor and he told me to take an extra dose of my Sotalol 40 mg and to try and bear down and pick my legs up above my head and I did all of that and it didn't help.". Transition of care: patient was not received from another setting of care. Onset of symptoms was August 24, 2018 at 10:00. Care prior to arrival: None. 11:12 Method Of Arrival: Wheelchair sv 11:12 Acuity: ARABELLA 1 sv 11:15 Risk Assessment: Do you want to hurt yourself or someone else? Patient reports no iw desire to harm self or others. Initial Sepsis Screen: Does the patient meet any 2 criteria? No. Patient's initial sepsis screen is negative. Does the patient have a suspected source of infection? No. Patient's initial sepsis screen is negative. Triage Assessment: 12:00 General: Appears in no apparent distress. Behavior is calm, cooperative. iw Historical: - Allergies: 11:20 Adhesives; sv 11:20 Nitrofurantoin; sv - PMHx: 11:20 Atrial Fib; Hypothyroidism; SVT; sv - PSHx: 11:20 Tonsillectomy; Tubal ligation; Cardiac ablasion; sv - Immunization history:: Adult Immunizations up to date. - Social history:: Smoking status: Patient/guardian denies using tobacco. - Family history:: not pertinent. - Ebola Screening: : No symptoms or risks identified at this time. - Hospitalizations: : No recent hospitalization is reported. Screenin:31 Abuse screen: Denies threats or abuse. Denies injuries from another. Nutritional iw screening: No deficits noted. Tuberculosis screening: No symptoms or risk factors identified. Fall Risk IV access (20 points). Assessment: 11:15 General: Appears in no apparent distress. comfortable, Behavior is calm, cooperative. iw Pain: Denies pain. Neuro: Level of Consciousness is awake, alert, obeys commands, Oriented to person, place, time, situation, Moves all extremities. Cardiovascular: Reports lightheadedness, palpitations, Denies chest pain, Capillary refill < 3 seconds in bilateral Patient's skin is warm and dry. Respiratory: Airway is patent Respiratory effort is even, unlabored, Respiratory pattern is regular, symmetrical. GI: No signs and/or symptoms were reported involving the gastrointestinal system. Abdomen is flat, non-distended. Derm: Skin is intact, is healthy with good turgor. Musculoskeletal: Range of motion: intact in all extremities. 11:30 Reassessment: Patient appears in no apparent distress at this time. Patient and/or iw family updated on plan of care and expected duration. Pain level reassessed. Patient is alert, oriented x 3, equal unlabored respirations, skin warm/dry/pink. pt placed on monitor, placed on defib pads, VSS, set up for chemical cardioversion. 11:46 Reassessment: Patient appears in no apparent distress at this time. Patient and/or iw family updated on plan of care and expected duration. Pain level reassessed. Patient is alert, oriented x 3, equal unlabored respirations, skin warm/dry/pink. pt states she feels better, HR=59, sinus darin, RI=919/85, friend at bedside, requesting for us to call her Electrocardiologist Dr. Olsen at [facility] . Vital Signs: 11:15 BP 111 / 85; Pulse 147; Resp 16; Pulse Ox 100% ; sv 11:30 BP 126 / 84; Pulse 147; Resp 18 S; Pulse Ox 99% on R/A; Pain 0/10; iw 11:45 BP 111 / 85; Pulse 59; Resp 16; Pulse Ox 100% on R/A; Pain 0/10; iw 12:15 BP 106 / 69; Pulse 55; Resp 16; Pulse Ox 99% on R/A; Pain 0/10; iw ED Course: 11:10 Patient arrived in ED. tw3 11:13 Cedric Baca MD is Attending Physician. rn 11:14 Sophy Carter, RN is Primary Nurse. iw 11:15 Patient has correct armband on for positive identification. iw 11:19 Triage completed. sv 11:20 Arm band placed on. sv 11:23 EKG done, by hydrological technical officer. reviewed by Cedric Baca MD. 3 11:31 Initial lab(s) drawn, by me, sent to lab. Inserted saline lock: 20 gauge in right iw antecubital area, using aseptic technique. Blood collected. 12:[address] Olsen's office called at [phone]/ the office staff with page Dr. valerie Olsen and let him know to call the ER. 12:[address] Olsen with Dr. Baca for patient consultation. eb 12:58 No provider procedures requiring assistance completed. iw 12:59 IV discontinued, intact, bleeding controlled, No redness/swelling at site. Pressure hb dressing applied. Administered Medications: 11:43 Drug: Adenosine 6 mg Route: IVP; Site: right antecubital; iw 11:45 Follow up: Response: No adverse reaction; Cardiac rhythm changed iw Outcome: 12:35 Discharge ordered by MD. rn 12:59 Discharged to home ambulatory, with family. 12:59 Condition: stable 12:59 Discharge instructions given to patient, Instructed on discharge instructions, follow up and referral plans. medication usage, Demonstrated understanding of instructions, follow-up care, medications. 12:59 Patient left the ED. Signatures: Angelica Paz RN RN Sophy Carter RN LARRY Cedric Baca MD MD rn Baxter, Heather, RN RN Sangeetha Iglesias 3 Shelby Lema Shakira 3 Corrections: (The following items were deleted from the chart) 11:35 11:12 Acuity: ARABELLA 2 sv sv
--- NOTE | 2018-08-24 12:36 | EDPHYS ---
Physician Documentation [facility] Name: Marcy Naylor Age: 68 yrs Sex: Female : 1950 Arrival Date: 08/24/2018 Time: 11:10 Bed 4 Private MD: ED Physician Cedric Baca HPI: 08/24 11:17 This 68 yrs old Female presents to ER via Unassigned with complaints of rn Increased HR. 11:17 The patient presents with a history of heart racing. Context: The symptoms occur at rn rest. Onset: The symptoms/episode began/occurred 1 hour(s) ago. Duration: The patient or guardian reports a single episode. Modifying factors: The symptoms are aggravated by nothing. The symptoms are alleviated by nothing. Severity of symptoms: At their worst the symptoms were moderate in the emergency department the symptoms are unchanged. The patient has experienced similar episodes in the past. Reports 1 hour of heart racing, no chest pin/sob/syncope. Has had multiple times in past, has known tachycardia/SVT, has had ablation in past, and scheduled for another ablation in 4 days. Took an extra sotalol 30 min prior to arrival.. Historical: - Allergies: 11:20 Adhesives; sv 11:20 Nitrofurantoin; sv - PMHx: 11:20 Atrial Fib; Hypothyroidism; SVT; sv - PSHx: 11:20 Tonsillectomy; Tubal ligation; Cardiac ablasion; sv - Immunization history:: Adult Immunizations up to date. - Social history:: Smoking status: Patient/guardian denies using tobacco. - Family history:: not pertinent. - Ebola Screening: : No symptoms or risks identified at this time. - Hospitalizations: : No recent hospitalization is reported. ROS: 11:17 Constitutional: Negative for fever, chills, and weight loss, Eyes: Negative for injury, rn pain, redness, and discharge, Neck: Negative for injury, pain, and swelling, Cardiovascular: + palpitations Respiratory: Negative for shortness of breath, cough, wheezing, and pleuritic chest pain, Abdomen/GI: Negative for abdominal pain, nausea, vomiting, diarrhea, and constipation, MS/Extremity: Negative for injury and deformity, Skin: Negative for injury, rash, and discoloration, Neuro: Negative for headache, weakness, numbness, tingling, and seizure. Exam: 11:17 Constitutional: This is a well developed, well nourished patient who is awake, alert, rn and in no acute distress. Head/Face: Normocephalic, atraumatic. Eyes: Pupils equal round and reactive to light, extra-ocular motions intact. Lids and lashes normal. Conjunctiva and sclera are non-icteric and not injected. Cornea within normal limits. Periorbital areas with no swelling, redness, or edema. ENT: MMM Cardiovascular: tachycardic, regular, no murmur Respiratory: Mild tachypnea, no retractions, no wheezing Skin: Warm, dry MS/ Extremity: Pulses equal, no cyanosis. Neurovascular intact. Full, normal range of motion. Equal circumference. Neuro: Awake and alert, GCS 15, oriented to person, place, time, and situation. Cranial nerves II-XII grossly intact. Motor strength 5/5 in all extremities. Sensory grossly intact. Cerebellar exam normal. Normal gait. 12:04 ECG was reviewed by the Attending Physician. rn Vital Signs: 11:15 BP 111 / 85; Pulse 147; Resp 16; Pulse Ox 100% ; sv 11:30 BP 126 / 84; Pulse 147; Resp 18 S; Pulse Ox 99% on R/A; Pain 0/10; iw 11:45 BP 111 / 85; Pulse 59; Resp 16; Pulse Ox 100% on R/A; Pain 0/10; iw 12:15 BP 106 / 69; Pulse 55; Resp 16; Pulse Ox 99% on R/A; Pain 0/10; iw Procedures: 11:38 Cardioversion:. Performed Chemical cardioversion, successful, with 6mg adenosine. Now rn in sinus rhythm. . MDM: 11:13 Patient medically screened. rn 12:33 Differential diagnosis: arrythmia, dehydration, stress disorder. Data reviewed: vital rn signs, nurses notes, lab test result(s), EKG, and as a result, I will discharge patient. Counseling: I had a detailed discussion with the patient and/or guardian regarding: the historical points, exam findings, and any diagnostic results supporting the discharge/admit diagnosis, lab results, radiology results, the need for outpatient follow up, to return to the emergency department if symptoms worsen or persist or if there are any questions or concerns that arise at home. Response to treatment: the patient's symptoms have resolved after treatment, the patient's condition has returned to base line, and as a result, I will discharge patient. Special discussion: I discussed with the patient/guardian in detail that at this point there is no indication for admission to the hospital. It is understood, however, that if the symptoms persist or worsen the patient needs to return immediately for re-evaluation. ED course: Consulted with Dr. Olsen, now back in sinus rhythm, he requests sotalol to be taken 80mg bid if can be tolerated, patient is concerned, is taking 80mg am and 40mg pm and waking up lightheaded and near syncopal as it is. Has ablation scheduled in 4 days. . 08/24 11:17 Order name: CBC with Diff rn 08/24 11:17 Order name: Basic Metabolic Panel; Complete Time: 12:03 rn 08/24 11:17 Order name: Troponin (emerg Dept Use Only); Complete Time: 12:03 rn 08/24 11:17 Order name: EKG; Complete Time: 11:17 rn 08/24 11:34 Order name: Manual Differential EDIA 08/24 11:17 Order name: IV Start; Complete Time: 11:31 rn 08/24 11:17 Order name: EKG - Nurse/Tech; Complete Time: 11:45 rn EC:04 Rate is 146 beats/min. Rhythm is regular. Left axis deviation noted. QRS is positive in rn lead I and negative in lead aVF. QRS interval is prolonged. QT interval is normal. T waves are Normal. No ST changes noted. Clinical impression: SVT. Interpreted by me. Reviewed by me. Administered Medications: 11:43 Drug: Adenosine 6 mg Route: IVP; Site: right antecubital; iw 11:45 Follow up: Response: No adverse reaction; Cardiac rhythm changed iw Disposition: 08/24/18 12:35 Discharged to Home. Impression: Supraventricular tachycardia. - Condition is Stable. - Discharge Instructions: Paroxysmal Supraventricular Tachycardia. - Medication Reconciliation Form, Thank You Letter, Antibiotic Education, Prescription Opioid Use form. - Follow up: Private Physician; When: As needed; Reason: Recheck today's complaints, Re-evaluation by your physician. - Problem is new. - Symptoms have improved. Signatures: Dispatcher [employer] EDIA Jackson, AngelicaLARRY camacho RN, Irene, RN RN iw Nieto, Roman, MD MD rn Baxter, Heather, RN RN Corrections: (The following items were deleted from the chart) 12:59 12:35 08/24/2018 12:35 Discharged to Home. Impression: Supraventricular tachycardia. hb Condition is Stable. Forms are Medication Reconciliation Form, Thank You Letter, Antibiotic Education, Prescription Opioid Use. Follow up: Private Physician; When: As needed; Reason: Recheck today's complaints, Re-evaluation by your physician. Problem is new. Symptoms have improved. rn
--- NOTE | 2018-08-24 17:15 | EKG ---
Test Date: 2018-08-24 Test Time: 11:18:16 Plate Finisher: [place] MEASUREMENT RESULTS: Intervals: Rate: 146 [place]: QRSD: 120 QT: 322 QTc: 501 [place]: P: [place]: QRS: -79 T: 23 INTERPRETIVE STATEMENTS: Atrial flutter with 2 to 1 block Left axis deviation Right bundle branch block Abnormal ECG Compared to ECG 08/09/2018 23:22:05 Left-axis deviation now present Sinus rhythm no longer present Electronically Signed On 08-24-18 17:14:33 CDT by Trace Rowland
--- NOTE | 2018-08-25 07:44 | EKG ---
Test Date: 2018-08-24 Test Time: 11:39:54 Immigration Attorney: CONY MEASUREMENT RESULTS: Intervals: Rate: 61 TN: 162 QRSD: 134 QT: 444 QTc: 446 [place]: P: 35 TN: 162 QRS: -85 T: 41 INTERPRETIVE STATEMENTS: Normal sinus rhythm Right bundle branch block Left anterior fascicular block Bifascicular block Abnormal ECG Compared to ECG 08/24/2018 11:18:16 Left anterior fascicular block now present Bifascicular block now present Atrial flutter no longer present Left-axis deviation no longer present Electronically Signed On 08-25-18 07:43:59 CDT by Trace Rowland
== END 2018-08-24 12:59 | disposition home or self-care (01) ==
LOC: ER 11:07
DX: I47.1 Supraventricular tachycardia (principal); I48.91 Unspecified atrial fibrillation; E03.9 Hypothyroidism, unspecified
CPT/HCPCS: 92960; 93005 ×2; 85025; 80048; 36415; 84484; 96374; 99291; J0153; J7030

== ENCOUNTER 2018-08-24 19:57 | Emergency (ER) | payer OTHER ==
--- OUTSIDE RECORDS SUMMARY | 2018-08-24 20:00 | XMS REPORT | Clinical Summary ---
:1950 Author Organization [facility] Denominational Address [address] [place] [address] Care Team Providers Name Role Phone Jl [...] Medicine Grady Aparicio Jr., MD (supraventricular tachycardia) ([facility]) (Primary Dx) 08/05/2018 Emergency Emergency Medicine Borjas, Palpitations (Primary Dx); MD Adia Tachycardia; Urinary tract infection without hematuria, site unspecified 07/14/2018 Anesthesia Event Procedural Violet Huynh, Cardiology PACKAGING DESIGN ENGINEER 07/14/2018 Surgery Procedural Elie Olsen MD EP COMPLETE EP STUDY Cardiology W ABLATION PULMONARY VEIN CARTO ANESTH [03015 (CPT)] 07/14/2018 - Hospital Encounter Cardiology Elie Olsen MD PAF (paroxysmal atrial fibrillation) ([facility]); 07/16/2018 Meghan Anna Atrial tachycardia (HCC) MD Ciarra 07/07/2018 Surgery Procedural Elie Olsen MD EP COMPLETE EP STUDY Cardiology W ABLATION SVT CARTO MAC ANESTH [32978 (CPT)] 07/07/2018 Anesthesia Event Procedural Sagar, Kannan Cardiology Edward, PACKAGING DESIGN ENGINEER 07/07/2018 Hospital Encounter Procedural Elie Olsen MD SVT Cardiology (supraventricular tachycardia) ([facility]) 06/11/2018 Emergency Emergency Medicine Nadir Sanz, Paroxysmal SVT ( supraventricular tachycardia) ([facility]) (Primary Dx); Urinary tract infection without hematuria, [...] VACCINE 12/14/2018 02/18/2015 Implants Implanted Type Area Product Management Consultant Device Shelf Model / Identifier Expiration Serial / Date Lot System Reveal Linq W/Monitors - [id number] Cardiac N/A: [employer] 2019 LINQSYS / Implanted: 07/14/2018 (Quantity not on file) Pacemakers and N/A CARDIAC RHYTHM / Related DISEASE [facility] [id number] Products Procedures Procedure Name Priority Date/Time Associated [...] CDT procedure are in the results section. NC CRITICAL CARE, E/M Routine 08/19/2018 8:52 Results [...] Routine 07/16/2018 9:00 Results for this AM TOXICS PROGRAM OFFICER procedure are in the results section. MAGNESIUM LEVEL Routine 07/16/2018 9:00 Results for this AM TOXICS PROGRAM OFFICER procedure are in the results section. BASIC METABOLIC PANEL Routine 07/16/2018 9:00 Results for this AM TOXICS PROGRAM OFFICER procedure are in the results section. ECG 12-LEAD Routine 07/16/2018 8:04 Results for this AM TOXICS PROGRAM OFFICER procedure are in the results section. POC GLUCOSE Routine 07/15/2018 9:50 Results for this PM TOXICS PROGRAM OFFICER procedure are in the results section. ECG 12-LEAD Routine 07/15/2018 8:25 Results for this PM TOXICS PROGRAM OFFICER procedure are in the results section. ECG 12-LEAD Routine 07/15/2018 8:59 Results for this AM TOXICS PROGRAM OFFICER procedure are in the results section. ECG 12-LEAD Routine 07/15/2018 4:34 Results for this AM TOXICS PROGRAM OFFICER procedure are in the results section. MAGNESIUM LEVEL Routine 07/15/2018 4:05 Results for this AM TOXICS PROGRAM OFFICER procedure are in the results section. ESTIMATED GFR Routine 07/15/2018 4:05 Results for this AM TOXICS PROGRAM OFFICER procedure are in the results section. BASIC METABOLIC PANEL Routine 07/15/2018 4:05 Results for this AM TOXICS PROGRAM OFFICER procedure are in the results section. HC COMPLETE BLD COUNT Routine 07/15/2018 4:05 Results for this W/AUTO DIFF AM TOXICS PROGRAM OFFICER procedure are in the results section. ECG PRE/POST OP Routine 07/15/2018 3:47 Results for this AM TOXICS PROGRAM OFFICER procedure are in the results section. POC GLUCOSE Routine 07/14/2018 11:32 Results for this PM TOXICS PROGRAM OFFICER procedure are in the results section. EP SUBCUTANEOUS CARDAIC Routine 07/14/2018 2:59 PAF (paroxysmal Results for this RHYTHM MONITOR INSERT W PM TOXICS PROGRAM OFFICER atrial procedure are in PROG fibrillation) ([facility]) the results Atrial tachycardia section. ([facility]) EP COMPLETE EP STUDY W Routine 07/14/2018 2:59 PAF (paroxysmal Results for this ABLATION PULMONARY VEIN PM TOXICS PROGRAM OFFICER atrial procedure are in fibrillation) ([facility]) the results Atrial tachycardia section. ([facility]) ACTIVATED CLOTTING TIME Routine 07/14/2018 2:46 Results for this PM TOXICS PROGRAM OFFICER procedure are in the results section. ACTIVATED CLOTTING TIME Routine 07/14/2018 1:47 Results for this PM TOXICS PROGRAM OFFICER procedure are in the results section. ACTIVATED CLOTTING TIME Routine 07/14/2018 1:02 Results for this PM TOXICS PROGRAM OFFICER procedure are in the results section. ACTIVATED CLOTTING TIME Routine 07/14/2018 12:27 Results for this PM TOXICS PROGRAM OFFICER procedure are in the results section. ARTERIAL LINE Routine 07/14/2018 11:48 AM TOXICS PROGRAM OFFICER Procedure Note - Violet Huynh CRNA - 07/14/2018 11:48 AM TOXICS PROGRAM OFFICER Arterial line Performed by: Violet Huynh CRNA Authorized by: Elpidio Diaz MD Start Time: 07/14/2018 11:19 AM End Time: 07/14/2018 11:24 AM Staff: Anesthesiologist: Elpidio Diaz MD Resident/PACKAGING DESIGN ENGINEER/AA: Violet Huynh CRNA Performed by: Resident/PACKAGING DESIGN ENGINEER/AA Pre-procedure: patient identified, IV checked, site and [...] ELECTIVE ENDOTRACHEAL AIRWAY Routine 07/14/2018 11:44 AM TOXICS PROGRAM OFFICER Procedure Note - Violet Huynh CRNA - 07/14/2018 11:44 AM TOXICS PROGRAM OFFICER Airway Date/Time: 07/14/2018 11:21 AM Performed by: Violet Huynh CRNA Authorized by: Elpidio Diaz MD Location: OR Urgency: Elective Difficult Airway: No Anesthesiologist: Elpidio Diaz MD Resident/PACKAGING DESIGN ENGINEER/AA: Violet Huynh CRNA Performed by: anesthesiologist Preoxygenated [...] 07/14/2018 11:33 AM Results for this TIME TOXICS PROGRAM OFFICER procedure are in the results section. TYPE AND SCREEN STAT 07/14/2018 9:40 AM Results for this TOXICS PROGRAM OFFICER procedure are in the results section. ECG PRE/POST OP STAT 07/14/2018 9:14 AM Results for this TOXICS PROGRAM OFFICER procedure are in the results section. EP COMPLETE EP STUDY Routine 07/07/2018 10:19 AM SVT Results for this W ABLATION VT TOXICS PROGRAM OFFICER (supraventricu procedure are in the lar results section. tachycardia) (HCC) ARTERIAL LINE Routine 07/07/2018 8:24 AM TOXICS PROGRAM OFFICER Procedure Note - Kannan Keith CRNA - 07/07/2018 8:24 AM TOXICS PROGRAM OFFICER Arterial line Performed by: Kannan Keith CRNA Authorized by: Tasneem Marcum MD Patient Location: OR Staff: Anesthesiologist: Tasneem Marcum MD Resident/PACKAGING DESIGN ENGINEER/AA: Kannan Keith CRNA Performed by: Resident/PACKAGING DESIGN ENGINEER/AA Pre-procedure: patient identified, IV checked, site and [...] TYPE AND SCREEN STAT 07/07/2018 6:30 AM TOXICS PROGRAM OFFICER URINALYSIS STAT 06/11/2018 9:46 PM TOXICS PROGRAM OFFICER XR CHEST 1 VW PORTABLE STAT 06/11/2018 8:35 PM TOXICS PROGRAM OFFICER ECG ED PRELIMINARY Routine 06/11/2018 8:33 PM TOXICS PROGRAM OFFICER Results for this INTERPRETATION procedure are in the results section. ECG ED PRELIMINARY Routine 06/11/2018 8:33 PM TOXICS PROGRAM OFFICER Results for this INTERPRETATION procedure are in the results section. NC CRITICAL CARE, ADDL 30 Routine 06/11/2018 8:33 PM TOXICS PROGRAM OFFICER Results for this MIN procedure are in the results section. NC CRITICAL CARE, E/M 30-74 Routine 06/11/2018 8:33 PM TOXICS PROGRAM OFFICER Results for this MINUTES procedure are in the results section. ECG 12-LEAD Routine 06/11/2018 8:15 PM TOXICS PROGRAM OFFICER SMEAR REVIEW STAT 06/11/2018 8:08 PM TOXICS PROGRAM OFFICER ESTIMATED GFR STAT 06/11/2018 8:08 PM TOXICS PROGRAM OFFICER CREATINE KINASE, TOTAL (CPK) STAT 06/11/2018 8:08 PM TOXICS PROGRAM OFFICER TROPONIN, I-STAT STAT 06/11/2018 8:08 PM TOXICS PROGRAM OFFICER HC COMPLETE BLD COUNT W/AUTO STAT 06/11/2018 8:08 PM TOXICS PROGRAM OFFICER Results for this DIFF procedure are in the results section. COMPREHENSIVE METABOLIC STAT 06/11/2018 8:08 PM TOXICS PROGRAM OFFICER Results for this PANEL procedure are in the results section. ECG 12-LEAD STAT 06/11/2018 8:03 PM TOXICS PROGRAM OFFICER XR CHEST 1 VW PORTABLE STAT 12/15/2017 [...] is included. Gram stain result Occasional WBC's [facility] Occasional Gram positive rods Moderate Gram positive cocci in chains Comment: Specimen Information Specimen Source: Urine Specimen Site: Clean catch Specimen Urine Performing Organization Address City/[facility] Phone Number [facility] DEPARTMENT OF PATHOLOGY AND [address] [place] [address] [address] Urine culture (08/19/2018 10:08 PM CDT)Only the most recent of2 resultswithin the time period is included. Urine culture isolate No growth after 24 hours [facility] Comment: Specimen Information Specimen Source: Urine Specimen Site: Clean catch Specimen Urine Performing Organization Address City/[facility]/Zipcode Phone Number [facility] DEPARTMENT OF PATHOLOGY AND [address] [place] [address] [address] Urinalysis screen and microscopy, with reflex to culture (08/19/2018 9:49 PM CDT)Only the most recent of2 resultswithin the time period is included. Specimen site Clean catch [facility] Color, UA Colorless YELLOW [facility] Appearance, UA Clear Clear [facility] Specific gravity, UA 1.004 (A) 1.005 - 1.030 [facility] pH, UA 6.0 5.0 - 8.0 [facility] Protein, UA Negative Negative [facility] Glucose, UA Negative Negative [facility] Ketones, UA Negative Negative [facility] Bilirubin, UA Negative Negative [facility] Blood, UA Small (A) Negative [facility] Nitrite, UA Negative NEGATIVE [facility] Urobilinogen, UA <2.0 <2.0 E.U./dL [facility] Leukocyte esterase, UA Trace (A) Negative [facility] Epithelial cells, UA <1 0 - 15 /HPF [facility] WBC, UA 4 0 - 5 /Hpf [facility] RBC, UA 1 0 - 5 /HPF [facility] Bacteria, UA None seen None seen [facility] Yeast, UA None seen None Seen [facility] Yeast with pseudohyphae, UA None seen [facility] Specimen Urine Performing Organization Address City/State/Zipcode Phone Number [facility] DEPARTMENT OF PATHOLOGY [address] [place] [address] AND GENOMIC MEDICINE [facility] [address] [facility] [address] [place] [address] HOSPITAL XR Chest 1 Vw Portable (08/19/2018 9:42 PM CDT)Only the most recent of3 resultswithin the time period is included. Narrative Performed At EXAMINATION: XR CHEST 1 VW PORTABLE RADIANT CLINICAL HISTORY: shortness of breath COMPARISON:06/11/2018 chest x-ray. IMPRESSION: Vascular congestion. No consolidation. No pleural effusion or pneumothorax. Cardiac silhouette is mildly enlarged. No acute osseous abnormalities. [facility]-[id number] Procedure Note Interface, Radiology Results Incoming - 08/19/2018 9:47 PM CDT EXAMINATION: XR CHEST 1 VW PORTABLE CLINICAL HISTORY: shortness of breath COMPARISON: 06/11/2018 chest x-ray. IMPRESSION: Vascular congestion. No consolidation. No pleural effusion or pneumothorax. Cardiac silhouette is mildly enlarged. No acute osseous abnormalities. [facility]-[id number] Performing Organization Address City/[facility]/Zipcode Phone Number GANESH [address] [place] [address] Estimated GFR (08/19/2018 9:25 PM CDT)Only the most recent of5 resultswithin the time period is included. Estimated GFR 57 (A) mL/min/1.73 m2 EVAN ZOROASTRIAN Comment: [facility] CatergoryUnitsInterpretation G1 >=90 Normal or high G2 60-89Mildly decreased [id number] to moderately decreased [id number] to severely decreased G4 15-29Severely decreased G5 <15Kidney failure The eGFR was calculated using the Chronic Kidney Disease Epidemiology Collaboration (CKD-EPI) equation. Interpretation is based on recommendations of the National Kidney Foundation-Kidney Disease Outcomes Quality Initiative (NKF-KDOQI) published in 2014. Specimen Plasma specimen Performing Organization Address [facility] Phone Number [facility] DEPARTMENT OF PATHOLOGY [address] [place] [address] Troponin (08/19/2018 9:25 PM CDT)Only the most recent of3 resultswithin the time period is included. Troponin <0.300 0.000 - 0.300 ng/mL EVAN ZOROASTRIAN Comment: [facility] The diagnostic value of a single normal or non-diagnostic result is questionable.Serial samples at 2-6 hour intervals are required to rule out acute myocardial injury. Specimen Plasma specimen Performing Organization Address [facility] Phone Number [facility] DEPARTMENT OF PATHOLOGY [address] [place] [address] CBC with platelet and differential (08/19/2018 9:25 PM CDT)Only the most recent of5 resultswithin the time period is included. WBC 8.7 4.5 - 11.0 k/uL [facility] RBC 4.21 4.20 - 5.50 M/uL [facility] HGB 13.8 (L) 14.0 - 18.0 g/dL [facility] HCT 41.3 37.0 - 47.0 % [facility] MCV 98.1 82.0 - 100.0 fL [facility] MCH 32.8 27.0 - 34.0 pg [facility] MCHC 33.4 31.0 - 37.0 g/dL [facility] RDW - SD 42.4 37.0 - 55.0 fL [facility] MPV 11.2 8.8 - 13.2 fL [facility] Platelet count 183 150 - 400 K/uL [facility] Nucleated RBC 0.00 /100 WBC [facility] Neutrophils 44.8 39.0 - 69.0 % [facility] Lymphocytes 40.7 25.0 - 45.0 % [facility] Monocytes 10.8 (H) 0.0 - 10.0 % [facility] Eosinophils 3.1 0.0 - 5.0 % [facility] Basophils 0.3 0.0 - 1.0 % [facility] Immature granulocytes 0.3Comment: 0.0 - 1.0 % [facility] "Immature [facility] granulocytes" (promyelocytes, myelocytes, metamyelocytes) Specimen Blood Performing Organization Address City/State/Zipcode Phone Number [facility] DEPARTMENT OF PATHOLOGY [address] [place] [address] [address] [place] [address] AND GENOMIC MEDICINE [facility] [id number] [place] [address] [address] [place] [address] HOSPITAL Thyroid stimulating hormone (08/19/2018 9:25 PM CDT)Only the most recent of3 resultswithin the time period is included. TSH 1.93 0.55 - 4.78 uIU/mL [facility] Specimen Plasma specimen Performing Organization Address City/[facility]/Zipcode Phone Number [facility] DEPARTMENT OF PATHOLOGY [address] [place] [address] [place] [address] HOSPITAL T4, free (08/19/2018 9:25 PM CDT)Only the most recent of2 resultswithin the time period is included. T4, free 1.6 0.8 - 1.8 ng/dL [facility] Specimen Plasma specimen Performing Organization Address [facility] Phone Number [facility] DEPARTMENT OF PATHOLOGY [address] [place] [address] Creatine kinase, total (CPK) (08/19/2018 9:25 PM CDT)Only the most recent of4 resultswithin the time period is included. Creatine kinase 49 35 - 200 U/L [facility] Specimen Plasma specimen Performing Organization Address [facility] Phone Number [facility] DEPARTMENT OF PATHOLOGY [address] [place] [address] Comprehensive metabolic panel (08/19/2018 9:25 PM CDT)Only the most recent of4 resultswithin the time period is included. Sodium 140 135 - 148 mEq/L [facility] Potassium 4.3 3.5 - 5.0 mEq/L [facility] Chloride 100 99 - 109 mEq/L [facility] CO2 28 24 - 31 mEq/L [facility] Anion gap 12@ANIO 7 - 15 mEq/L [facility] BUN 21 8 - 24 mg/dL [facility] Creatinine 1.00 (H) 0.50 - 0.90 mg/dL [facility] Glucose 129 (H) 65 - 99 mg/dL [facility] Calcium 9.6 8.6 - 10.6 mg/dL [facility] Protein 6.9 6.3 - 8.2 g/dL [facility] Albumin 4.5 3.5 - 5.0 g/dL [facility] A/G ratio 1.88 0.70 - 3.80 [facility] Alkaline phosphatase 73 30 - 115 U/L [facility] AST 20 15 - 46 U/L [facility] ALT 11 10 - 55 U/L [facility] Total bilirubin 0.2 0.2 - 1.2 mg/dL [facility] Specimen Plasma specimen Performing Organization Address City/[facility] Phone Number [facility] DEPARTMENT OF PATHOLOGY [address] [facility] [address] [place] [address] AND GENOMIC MEDICINE [facility] [address] [facility] [address] [place] [address] HOSPITAL ECG 12 lead (08/19/2018 9:20 PM CDT)Only the most recent of15 resultswithin the time period is included. Ventricular rate 67 [facility] Atrial rate 67 [facility] NC interval 164 [facility] QRSD interval 134 [facility] QT interval 410 [facility] QTC interval 433 [facility] P axis 1 38 [facility] QRS axis 1 -74 [facility] T wave axis 20 [facility] EKG impression Normal sinus rhythm-Right bundle branch [facility] block-Left anterior fascicular block-^^^ Bifascicular block ^^^-Abnormal ECG-- Narrative Performed At Performing Organization Address [facility] Phone Number [facility] MUSE [address] [place] [address] ECG ED Preliminary Interpretation - Not an Order (08/19/2018 8:52 PM CDT)Only the most recent of9 resultswithin the time period is included. Narrative Performed At Grady Aparicio Jr., MD 08/19/2018 10:59 PM ECG ED Preliminary Interpretation - Not an Order Performed by: Grady Aparicio Jr., MD Authorized by: Grady Aparicio Jr., MD ECG reviewed by ED Physician in the absence of a delivery room supervisor: yes Interpretation: Interpretation: non-specific Rate: ECG rate:152 [...] 23.0 - 36.0 sec EVAN MARTINEZ Comment: [facility] PTT therapeutic range for unfractionated heparin is 66.0-112.0 seconds which corresponds to Anti-Xa 0.3-0.7 U/mL. The reference range has changed starting 10/14/2009 @12:00pm Specimen Blood Performing Organization Address City/State/Zipcode Phone Number [facility] DEPARTMENT OF PATHOLOGY [address] [place] [address] AND GENOMIC MEDICINE [facility] [address] [facility] [address] [place] [address] HOSPITAL Prothrombin time with INR (08/05/2018 1:19 AM CDT)Only the most recent of2 resultswithin the time period is included. Prothrombin time 24.2 (H) 11.5 - 14.5 sec [facility] INR 2.2 [facility] Comment: [facility] The International Normalized Ratio (INR) is a therapeutic monitoring tool for patients who are stable on oral anticoagulant therapy. An INR of 2.0-3.0 is suggested for deep vein thrombosis/pulmonary embolism. Specimen Blood Performing Organization Address City/[facility]/Zipcode Phone Number [facility] DEPARTMENT OF PATHOLOGY [address] [facility] [address] [place] [address] AND [facility] [address] [facility] [address] [place] [id number] HOSPITAL Magnesium level (07/16/2018 9:00 AM TOXICS PROGRAM OFFICER)Only the most recent of2 resultswithin the time period is included. Magnesium 2.1 1.6 - 2.4 mg/dL [facility] Specimen Plasma specimen Performing Organization Address [facility] Phone Number [facility] DEPARTMENT OF PATHOLOGY AND [address] [place] [address] Basic metabolic panel (07/16/2018 9:00 AM TOXICS PROGRAM OFFICER)Only the most recent of2 resultswithin the time period is included. Sodium 141 135 - 148 mEq/L [facility] Potassium 4.0 3.5 - 5.0 mEq/L [facility] Chloride 106 98 - 112 mEq/L [facility] CO2 24 24 - 31 mEq/L [facility] Anion gap 11@ANIO 7 - 15 mEq/L [facility] BUN 13 8 - 23 mg/dL [facility] Creatinine 1.10 (H) 0.50 - 0.90 mg/dL [facility] Glucose 133 (H) 65 - 99 mg/dL [facility] Calcium 8.6 (L) 8.8 - 10.2 mg/dL [facility] Specimen Plasma specimen Performing Organization Address [facility] Phone Number [facility] DEPARTMENT OF PATHOLOGY AND [address] [place] [address] POC glucose (07/15/2018 9:50 PM TOXICS PROGRAM OFFICER)Only the most recent of2 resultswithin the time period is included. POC glucose 105 (H) 65 - 99 mg/dL [facility] Comment: [facility] Notified RN Meter ID: [id number] Commercial Interior Designer: Guero Thomas Performing Organization Address [facility] Phone Number [facility] DEPARTMENT OF PATHOLOGY AND [address] [place] [address] GENOMIC MEDICINE [facility] [address] [place] [address] ECG Pre/Post Op (07/15/2018 3:47 AM TOXICS PROGRAM OFFICER)Only the most recent of2 resultswithin the time [...] EKG impression Normal sinus rhythm-Right bundle branch [facility] MUSE block-Abnormal ECG-In automated comparison with ECG of 14-JUL-2018 23:23,-No significant change was found- Narrative Performed At Performing Organization Address [facility] Phone Number [facility] MUSE [address] [place] [address] Cv electrophysiology procedure (07/14/2018 2:59 PM TOXICS PROGRAM OFFICER) Impressions Performed At -Successful pulmonary veins isolation [...] DATE OF OPERATION: July 14, 2018 [employer]NGO ARTIFICIAL BREAST FABRICATOR: Elie Olsen MD PREOPERATIVE DIAGNOSES: -Paroxysmal atrial [...] Patient presented to the EP lab in [facility]. Sheaths were placed using modified Seldinger technique. [...] medium curl Agilis sheath, through which a [place] TelevisionTouch SF catheter, DF curve was advanced to the RA, and a Fast Anatomic Map (FAM) was done for the IVC, RA septum, fossa and SVC. A decapolar diagnostic catheter was then advanced into the coronary sinus. Next, we turned out attention to left sided access. After titrating heparin drip to achieve an ACT > 350 sec, transseptal puncture was performed with [place] long needle (requiring RF) using ICE guidance. [...] interval was measured at 44msec and AH=78. VTYXW=[id number], concentric and midline. EGIET=112reds, Atria ERP was obtained at 500/230ms. Post-procedure ICE showed no pericardial effusion.Catheters were removed and sheath was pulled and the [id number] sutures were placed in the groin. Following [...] condition. Performing Organization Address City/State/Zipcode Phone Number [facility] [address] [place] [address] Activated clotting time (07/14/2018 2:46 PM TOXICS PROGRAM OFFICER)Only the most recent of5 resultswithin the time period is included. Activated clotting time 116 96 - 152 sec [facility] Comment: HOSPITAL Meter ID: [id number] Commercial Interior Designer: Lino Violet Performing Organization Address City/[facility]/Zipcode Phone Number [facility] DEPARTMENT OF PATHOLOGY AND [address] [place] [address] Type and screen (07/14/2018 9:40 AM TOXICS PROGRAM OFFICER)Only the most recent of2 resultswithin the time period is included. ABO grouping A [facility] Rh type POS [facility] Antibody screen (gel) NEG [facility] Specimen Blood Performing Organization Address City/[facility] Phone Number [facility] DEPARTMENT OF PATHOLOGY AND [address] [place] [phone] Cv electrophysiology procedure (07/07/2018 10:19 AM TOXICS PROGRAM OFFICER) Impressions Performed At -Incessant atrial fibrillation on [...] DATE OF OPERATION: July 07, 2018 SYNGO ARTIFICIAL BREAST FABRICATOR: Elie Olsen MD PREOPERATIVE DIAGNOSES: -Supraventricular tachycardia [...] midline and decrementing VA conduction with VA NBTX=[id number]. Para Hissian pacing was performed and exhibited a normal amber response, ruling out a septal concealed pathway. Atrial pacing from HRA showed UZHDE=[id number]. With Atrial singles, atrial ERP was was [...] however induced fast SVT with 1:1 conduction, OPV=[id number] which is is her clinical SVT. This was [id number] on CS. VOD showed VAAV response with [...] complication. Performing Organization Address City/State/Zipcode Phone Number [facility] [address] [place] [address] Urinalysis (06/11/2018 9:46 PM TOXICS PROGRAM OFFICER) Glucose, UA Negative Negative [facility] Bilirubin, UA Negative Negative [facility] Ketones, UA Negative Negative [facility] Specific gravity, UA 1.010 1.005 - 1.030 [facility] Blood, UA Trace (A) Negative [facility] pH, UA 5.5 5.0 - 8.0 [facility] Protein, UA Negative Negative [facility] Urobilinogen, UA <2.0 <2.0 [facility] Nitrite, UA Negative Negative [facility] Leukocyte esterase, UA Moderate (A) Negative [facility] Color, UA Yellow [facility] Appearance, UA Clear [facility] Specimen Urine Performing Organization Address City/[facility]/Zipcode Phone Number DEPARTMENT OF PATHOLOGY [address] [phone] AND [facility] [address] [facility] [address] [address] CRITICAL CARE (06/11/2018 8:33 PM TOXICS PROGRAM OFFICER) Narrative Performed At Nadir Sanz MD 06/11/2018 [...] provider.: no Smear review (06/11/2018 8:08 PM TOXICS PROGRAM OFFICER) Platelet slide review Kody adequate [facility] Enlarged platelets Slight [facility] Specimen Blood Performing Organization Address City/State/Zipcode Phone Number DEPARTMENT OF PATHOLOGY [phone] [address] AND [facility] [address] [facility] [address] [place] [address] Troponin, I-Stat (06/11/2018 8:08 PM TOXICS PROGRAM OFFICER) Troponin, I-Stat 0.01 0.00 - 0.08 ng/mL [facility] Comment: CENTER 0.09 - 1.49 ng/mlMay indicate increased risk of acute coronary syndrome. >=1.5 ng/mlConsistent with acute myocardial infarction. The diagnostic value of a single normal or non-diagnostic result is questionable.Serial samples at 2-6 hour intervals are required to rule out acute myocardial injury. Specimen Plasma specimen Performing Organization Address City/State/Zipcode Phone Number DEPARTMENT OF PATHOLOGY [address] [address] [place] [address] AND [facility] [address] [facility] [address] [place] [address] CRITICAL CARE (12/15/2017 10:18 PM CDT) Narrative [...] Non Af Amer 45 (A) mL/min/1.73 m2 [facility] DEPARTMENT OF PATHOLOGY AND [facility] MEDICINE GFR Af Amer 54 (A) mL/min/1.73 m2 [facility] DEPARTMENT OF Comment: PATHOLOGY AND GENOMIC Chronic [...] Americans. Specimen Plasma specimen Performing Organization Address City/[facility]/Zipcode Phone Number [facility] PATHOLOGY AND [address] [place], [place] [address]y. [address] [place] [address] GENOMIC MEDICINE Manual differential (12/15/2017 10:18 PM CDT) Neutrophils 39.0 39.0 - 69.0 % [facility] DEPARTMENT OF PATHOLOGY AND GENOMIC MEDICINE Lymphocytes 45.0 25.0 - 45.0 % [facility] DEPARTMENT OF PATHOLOGY AND GENOMIC MEDICINE Monocytes 10.0 0.0 - 10.0 % [facility] DEPARTMENT OF PATHOLOGY AND GENOMIC MEDICINE Eosinophils 1.0 0.0 - 5.0 % [facility] DEPARTMENT OF PATHOLOGY AND GENOMIC MEDICINE Basophils 1.0 0.0 - 1.0 % [facility] DEPARTMENT OF PATHOLOGY AND GENOMIC MEDICINE Reactive lymphocytes 4 [facility] DEPARTMENT OF PATHOLOGY AND GENOMIC MEDICINE Platelet slide review Adequate [facility] DEPARTMENT OF PATHOLOGY AND GENOMIC MEDICINE Performing Organization Address [facility] Phone Number [facility] DEPARTMENT OF PATHOLOGY AND [address] [place], [place] [address]y. [address] [phone] [facility] MEDICINE B natriuretic peptide (12/15/2017 10:18 PM CDT) BNP 178 (H) 0 - 100 pg/mL [facility] DEPARTMENT OF PATHOLOGY AND GENOMIC MEDICINE Specimen Blood Performing Organization Address City/[facility] Phone Number [facility] PATHOLOGY AND [address] [place], [place] [address]y. [address] [phone] GENOMIC MEDICINE after 08/23/2017 Insurance Payer Benefit Plan / Group Subscriber ID Type Phone Address [employer] MEDICARE HU[employer] MEDICARE PPO/PFFS/[facility] xxxxxxxxx PPO Advance Directives Patient has advance care planning documents on file. For more information, please contact:[place] [address]
[2018-08-24] MEDS ORDERED: NA CHLORIDE 0.9% 500 ML ONE (20:32)
[2018-08-24] MEDS ORDERED: ADENOSINE 6 MG/ 2ML VIAL IV ONE (20:32)
[2018-08-24 20:42] LABS: Absolute Monocytes 0.9 K/uL (0.1-1.3); Absolute Neutrophil 3.2 K/uL (1.8-8.0); Basophils % 0.5 % (0-1.3); Eosinophils % 3.3 % (0-4.4); Hematocrit 41.4 % (36.0-45.0); MPV 8.9 fL (7.6-11.3); Monocytes % 11.1 % (3.3-12.3); RBC Red Blood Cell Count 4.28 M/uL (3.86-4.86)
[2018-08-24 20:43] LABS: Protime INR 1.53
[2018-08-24 20:55] LABS: ALT/SGPT 15 U/L (12-78); AST/SGOT 14 U/L (15-37); Albumin 3.9 g/dL (3.4-5.0); Alkaline Phosphatase 75 U/L (45-117); BUN Blood Urea Nitrogen 23 mg/dL (7-18); Bicarbonate 27 mmol/L (21-32); Bilirubin Direct < 0.1 mg/dL (0-0.2); Bilirubin Total 0.3 mg/dL (0.2-1.0); Glucose Level 100 mg/dL (74-106); Magnesium 2.1 mg/dL (1.8-2.4); NT PRO-BNP 470 pg/mL (<125); Potassium 4.3 mmol/L (3.5-5.1); Protein, Total 6.8 g/dL (6.4-8.2); Sodium Level 143 mmol/L (136-145); Troponin (Emerg Dept Use Only) < 0.02 ng/mL (0.0-0.045)
--- NOTE | 2018-08-24 21:04 | RAD REPORT ---
EXAM DESCRIPTION: Gianni Single View08/24/2018 8:57 pm CLINICAL HISTORY: Chest pain COMPARISON: July 2018 FINDINGS: The lungs appear clear of acute infiltrate. The heart is mildly enlarged IMPRESSION: No acute abnormalities displayed
--- NOTE | 2018-08-24 21:31 | EDPHYS ---
Physician Documentation [facility] Name: Marcy Naylor Age: 68 yrs Sex: Female : 1950 Arrival Date: 08/24/2018 Time: 19:57 Bed 2 Private MD: Mic Ramirez H ED Physician Selwyn Abreu HPI: 08/24 20:47 This 68 yrs old Female presents to ER via Ambulatory with complaints of tw4 Tachycardia. 20:47 The patient presents with a history of heart racing. Context: The symptoms occur at tw4 rest. Onset: The symptoms/episode began/occurred today. Onset: The symptoms/episode began/occurred just prior to arrival. Duration: The patient or guardian reports a single episode. Modifying factors: The symptoms are aggravated by nothing. The symptoms are alleviated by nothing. Associated signs and symptoms: The patient has no apparent associated signs or symptoms. Severity of symptoms: At their worst the symptoms were moderate in the emergency department the symptoms. The patient has not experienced similar symptoms in the past. The patient has been recently seen by a physician: The patient has been recently seen at the [facility] Emergency Department, today. Historical: - Allergies: 20:09 Adhesives; aj1 20:09 Nitrofurantoin; aj1 - Home Meds: 20:09 cephalexin 500 mg Oral cap every 12 hours [Active]; levothyroxine 125 mcg tab 1 tab aj1 once daily [Active]; pantoprazole 40 mg Oral TbEC 2 times per day [Active]; sotalol 80 mg Oral tab 0.5 tab 2 times per day [Active]; Xarelto 20 mg Oral tab once daily [Active]; - PMHx: 20:09 Atrial Fib; Hypothyroidism; SVT; aj1 - Immunization history:: Adult Immunizations up to date. - Social history:: Smoking status: Patient/guardian denies using tobacco. - Ebola Screening: : Patient denies travel to an Ebola-affected area in the 21 days before illness onset. ROS: 20:46 Constitutional: Negative for fever, chills, and weight loss, Eyes: Negative for injury, tw4 pain, redness, and discharge, Respiratory: Negative for shortness of breath, cough, wheezing, and pleuritic chest pain, Abdomen/GI: Negative for abdominal pain, nausea, vomiting, diarrhea, and constipation, Back: Negative for injury and pain, MS/Extremity: Negative for injury and deformity, Skin: Negative for injury, rash, and discoloration. 20:46 Cardiovascular: Positive for chest pain, palpitations, Negative for edema, orthopnea. Exam: 20:46 Constitutional: This is a well developed, well nourished patient who is awake, alert, tw4 and in no acute distress. Head/Face: Normocephalic, atraumatic. Chest/axilla: Normal chest wall appearance and motion. Nontender with no deformity. No lesions are appreciated. 20:46 Respiratory: Lungs have equal breath sounds bilaterally, clear to auscultation and percussion. No rales, rhonchi or wheezes noted. No increased work of breathing, no retractions or nasal flaring. Abdomen/GI: Soft, non-tender, with normal bowel sounds. No distension or tympany. No guarding or rebound. No evidence of tenderness throughout. Back: No spinal tenderness. No costovertebral tenderness. Full range of motion. MS/ Extremity: Pulses equal, no cyanosis. Neurovascular intact. Full, normal range of motion. Neuro: Awake and alert, GCS 15, oriented to person, place, time, and situation. Cranial nerves II-XII grossly intact. Motor strength 5/5 in all extremities. Sensory grossly intact. Cerebellar exam normal. Normal gait. 20:46 Cardiovascular: Rate: tachycardic, actual rate is 140 bpm, Rhythm: regular, Pulses: no pulse deficits are appreciated. Vital Signs: 20:02 BP 108 / 79; Pulse 155; Resp 20; Temp 98.5; Pulse Ox 99% ; Pain 0/10; aj1 20:33 BP 110 / 89; Pulse 143; Resp 16; Pulse Ox 99% on 2 lpm NC; lp1 20:52 BP 137 / 71; Pulse 51; Resp 13; Pulse Ox 100% on 15% Non-rebreather mask; lp1 20:52 BP 137 / 71; Pulse 51; Resp 13; Pulse Ox 100% on 15% Mask: Non-rebreather mask; lp1 21:02 BP 126 / 76; Pulse 55; Resp 17; Pulse Ox 99% on R/A; lp1 21:40 BP 110 / 73; Pulse 52; Resp 15; Pulse Ox 99% on R/A; lp1 22:33 BP 110 / 73; Pulse 53; Resp 20; Pulse Ox 97% on R/A; lp1 23:15 BP 113 / 63; Pulse 51; Resp 17; Pulse Ox 99% on R/A; lp1 MDM: 20:09 Patient medically screened. tw4 22:33 Differential diagnosis: arrythmia. Data reviewed: vital signs, nurses notes. Data tw4 interpreted: Pulse oximetry: Interpretation: normal. Test interpretation: by ED physician or midlevel provider: ECG. Counseling: I had a detailed discussion with the patient and/or guardian regarding: the historical points, exam findings, and any diagnostic results supporting the discharge/admit diagnosis, radiology results. Medication response: adenosine. Response to treatment: the patient's symptoms have resolved after treatment, the patient is not tachycardic, the patient's condition has returned to base line, and as a result, I will admit patient. ED course: Pt brought to room 2 and placed on the monitor. EKG and monitor revealed atypical narrow complex tachycardia. Pt received 6 mg of adenosine and had conversion to NSR. Pt vitals signs remained stable and pt as not symptomatic. Discussed case with Dr Olsen who agreed that pt could be transferred to [facility]. Pt has an appt to have an ablation there next week. . 08/24 20:24 Order name: Basic Metabolic Panel; Complete Time: 21:25 08/24 21:25 Interpretation: Normal except: CL 108; BUN 23; GFR 48. 08/24 20:24 Order name: CBC with Diff; Complete Time: 21:26 08/24 21:26 Interpretation: Normal except: VALERIE% 38.1; LYM% 47.0. 08/24 20:24 Order name: LFT's; Complete Time: 21:26 08/24 21:26 Interpretation: Normal except: AST 14. 08/24 20:24 Order name: Magnesium 08/24 20:24 Order name: NT PRO-BNP; Complete Time: 21:26 08/24 21:26 Interpretation: Normal except: NT PRO-BNP 470. 08/24 20:24 Order name: PT-INR 08/24 20:24 Order name: Troponin (emerg Dept Use Only) 08/24 20:24 Order name: XRAY Chest (1 view) 08/24 20:24 Order name: EKG; Complete Time: 20:25 08/24 20:24 Order name: Cardiac monitoring; Complete Time: 20:33 08/24 20:24 Order name: EKG - Nurse/Tech; Complete Time: 20:33 08/24 20:24 Order name: IV Saline Lock; Complete Time: 20:33 08/24 20:24 Order name: Labs collected and sent; Complete Time: 20:33 08/24 20:24 Order name: O2 Per Protocol; Complete Time: 20:33 08/24 20:24 Order name: O2 Sat Monitoring; Complete Time: 20:33 tw4 Administered Medications: 20:50 Drug: Adenosine 6 mg Route: IVP; Site: right antecubital; lp1 20:52 Follow up: BP 137 / 71; Pulse 51 bpm; Resp 13 bpm; Pulse Ox 100% 15% Mask: lp1 Non-rebreather mask; Response: Marked relief of symptoms Disposition: 08/24/18 21:30 Transfer ordered to [facility]. Diagnosis are Supraventricular tachycardia, Chest pain, unspecified. - Reason for transfer: Higher level of care. - Accepting physician is Dr Payton. - Condition is Stable. - Problem is new. - Symptoms have improved. Critical care time excluding procedures: 22:33 Critical care time: Bedside Care: 30 minutes, Consultation: 5 minutes. Total time: 35 tw4 minutes Signatures: Dispatcher [employer] Shikha Kohli RN RN aj1 Ana Lyon RN RN lp1 Selwyn Abreu MD MD tw4 Corrections: (The following items were deleted from the chart) 21:31 21:30 08/24/2018 21:30 Transfer ordered to [facility]. Diagnosis is tw4 Supraventricular tachycardia. Reason for transfer: Higher level of care. Accepting physician is Dr Payton. Condition is Stable. Problem is new. Symptoms have improved. tw4 23:22 21:31 08/24/2018 21:30 Transfer ordered to [facility]. Diagnosis is lp1 Supraventricular tachycardia; Chest pain, unspecified. Reason for transfer: Higher level of care. Accepting physician is Dr Payton. Condition is Stable. Problem is new. Symptoms have improved. tw4
--- NOTE | 2018-08-24 21:31 | ER ---
Nurse's Notes [facility] Name: Marcy Naylor Age: 68 yrs Sex: Female : 1950 Arrival Date: 08/24/2018 Time: 19:57 Bed 2 Private MD: Mic Ramirez H Diagnosis: Supraventricular tachycardia;Chest pain, unspecified Presentation: 08/24 20:02 Presenting complaint: Patient states: She was here earlier with tachycardia, they gave aj1 her adenosine and it fixed the problem but now its back. Reports that she has had this happen many times in the past and has had multiple abrasions. Denies CP. Reports SOB, palpitations. Transition of care: patient was not received from another setting of care. Onset of symptoms was August 24, 2018. Risk Assessment: Do you want to hurt yourself or someone else? Patient reports no desire to harm self or others. Initial Sepsis Screen: Does the patient meet any 2 criteria? No. Patient's initial sepsis screen is negative. Does the patient have a suspected source of infection? No. Patient's initial sepsis screen is negative. Care prior to arrival: None. 20:02 Method Of Arrival: Ambulatory aj1 20:02 Acuity: ARABELLA 2 aj1 Triage Assessment: 20:09 General: Appears in no apparent distress. uncomfortable, Behavior is calm, cooperative, aj1 appropriate for age. Pain: Denies pain. Neuro: Level of Consciousness is awake, alert, obeys commands, Oriented to person, place, time, situation. Cardiovascular: Reports palpitations, shortness of breath, Denies chest pain, Patient's skin is warm and dry. Respiratory: Airway is patent Respiratory effort is even, unlabored, Respiratory pattern is regular, symmetrical. Historical: - Allergies: 20:09 Adhesives; aj1 20:09 Nitrofurantoin; aj1 - Home Meds: 20:09 cephalexin 500 mg Oral cap every 12 hours [Active]; levothyroxine 125 mcg tab 1 tab aj1 once daily [Active]; pantoprazole 40 mg Oral TbEC 2 times per day [Active]; sotalol 80 mg Oral tab 0.5 tab 2 times per day [Active]; Xarelto 20 mg Oral tab once daily [Active]; - PMHx: 20:09 Atrial Fib; Hypothyroidism; SVT; aj1 - Immunization history:: Adult Immunizations up to date. - Social history:: Smoking status: Patient/guardian denies using tobacco. - Ebola Screening: : Patient denies travel to an Ebola-affected area in the 21 days before illness onset. Screenin:34 Abuse screen: Denies threats or abuse. Denies injuries from another. Nutritional lp1 screening: No deficits noted. Tuberculosis screening: No symptoms or risk factors identified. Fall Risk None identified. Assessment: 20:33 General: Appears in no apparent distress. Behavior is appropriate for age. Pain: lp1 Complains of pain in chest. Neuro: Level of Consciousness is awake, alert, obeys commands, Oriented to person, place, time, situation. Cardiovascular: Patient's skin is warm and dry. Rhythm is sinus tachycardia. Respiratory: Respiratory effort is even, unlabored, Respiratory pattern is regular, Breath sounds are clear bilaterally. GI: No signs and/or symptoms were reported involving the gastrointestinal system. : No signs and/or symptoms were reported regarding the genitourinary system. EENT: No signs and/or symptoms were reported regarding the EENT system. Derm: Skin is pink, warm \T\ dry. Musculoskeletal: No deficits noted. 21:00 Reassessment: Patient is alert, oriented x 3, equal unlabored respirations, skin lp1 warm/dry/pink. Patient states feeling better. Patient states symptoms have improved. 22:00 Reassessment: Patient appears in no apparent distress at this time. Patient and/or lp1 family updated on plan of care and expected duration. Pain level reassessed. Patient is alert, oriented x 3, equal unlabored respirations, skin warm/dry/pink. Friends at bedside. 22:32 Reassessment: Report called to LARRY Kiran at [facility] for patient transfer to [address]. 23:00 Reassessment: Patient is alert, oriented x 3, equal unlabored respirations, skin 1 warm/dry/pink. [facility] at bedside for transfer Patient denies pain at this time. Vital Signs: 20:02 BP 108 / 79; Pulse 155; Resp 20; Temp 98.5; Pulse Ox 99% ; Pain 0/10; aj1 20:33 BP 110 / 89; Pulse 143; Resp 16; Pulse Ox 99% on 2 lpm NC; lp1 20:52 BP 137 / 71; Pulse 51; Resp 13; Pulse Ox 100% on 15% Non-rebreather mask; lp1 20:52 BP 137 / 71; Pulse 51; Resp 13; Pulse Ox 100% on 15% Mask: Non-rebreather mask; lp1 21:02 BP 126 / 76; Pulse 55; Resp 17; Pulse Ox 99% on R/A; lp1 21:40 BP 110 / 73; Pulse 52; Resp 15; Pulse Ox 99% on R/A; lp1 22:33 BP 110 / 73; Pulse 53; Resp 20; Pulse Ox 97% on R/A; lp1 23:15 BP 113 / 63; Pulse 51; Resp 17; Pulse Ox 99% on R/A; lp1 ED Course: 19:57 Patient arrived in ED. do 19:58 Mic Ramirez DO is Private Physician. do 20:02 Arm band placed on Patient placed in an exam room. aj1 20:04 Triage completed. aj1 20:06 Ana Lyon, LARRY is Primary Nurse. lp1 20:09 Selwyn Abreu MD is Attending Physician. tw4 20:26 Inserted saline lock: 20 gauge in right antecubital area, using aseptic technique. oe Blood collected. 20:34 Patient has correct armband on for positive identification. Placed in gown. Bed in low lp1 position. Call light in reach. monitor car operator on. Pulse ox on. NIBP on. 20:50 Assist provider with cardioversion with pads, Set up for procedure. Performed by lp1 Selwyn Abreu MD Monitored with cafeteria monitor, pulse ox, Post procedure rhythm is Sinus Mitch. Patient tolerated well. 20:57 XRAY Chest (1 view) In Process Unspecified. EDMS 23:22 Patient transferred, IV remains in place. lp1 Administered Medications: 20:50 Drug: Adenosine 6 mg Route: IVP; Site: right antecubital; lp1 20:52 Follow up: BP 137 / 71; Pulse 51 bpm; Resp 13 bpm; Pulse Ox 100% 15% Mask: lp1 Non-rebreather mask; Response: Marked relief of symptoms Outcome: 21:30 ER care complete, transfer ordered by MD. tw4 22:33 Condition: stable lp1 22:33 Instructed on the need for transfer. 23:22 Transferred by ground EMS to [facility], Transfer form completed. X-rays lp1 sent w/ patient. 23:22 Patient left the ED. lp1 Signatures: Dispatcher [employer] Shikha Kohli, RN RN aj1 Ana Lyon RN RN lp1 Lexi Miranda, Selwyn Woods MD MD tw4
--- NOTE | 2018-08-25 07:44 | EKG ---
Test Date: 2018-08-24 Test Time: 20:08:57 Roller Skater: DONI MEASUREMENT RESULTS: Intervals: Rate: 145 AL: 118 QRSD: 124 QT: 324 QTc: 503 [place]: P: AL: 118 QRS: -63 T: -25 INTERPRETIVE STATEMENTS: Sinus tachycardia cannot rule out atrial flutter with 2 to 1 block Left axis deviation Right bundle branch block Abnormal ECG Compared to ECG 08/24/2018 11:39:54 Left-axis deviation now present Sinus rhythm no longer present Electronically Signed On 08-25-18 07:43:23 CDT by Trace Rowland
--- NOTE | 2018-08-26 09:48 | EKG ---
Test Date: 2018-08-24 Test Time: 20:55:16 Salesperson Jewelry: DEISY MEASUREMENT RESULTS: Intervals: Rate: 56 PA: 168 QRSD: 128 QT: 468 QTc: 451 [place]: P: 26 PA: 168 QRS: -51 T: 3 INTERPRETIVE STATEMENTS: Sinus bradycardia with marked sinus arrhythmia Right bundle branch block Left anterior fascicular block Bifascicular block Abnormal ECG Compared to ECG 08/24/2018 20:08:57 Left anterior fascicular block now present Bifascicular block now present Sinus tachycardia no longer present Atrial flutter no longer present Left-axis deviation no longer present Electronically Signed On 08-26-18 09:43:25 CDT by Tyshawn Angeles
== END 2018-08-24 23:22 | disposition short-term general hospital (02) ==
LOC: ER 19:57
DX: I47.1 Supraventricular tachycardia (principal); I48.91 Unspecified atrial fibrillation; E03.9 Hypothyroidism, unspecified; Z88.8 Allergy status to other drugs, medicaments and biological substances; Z91.048 Other nonmedicinal substance allergy status
CPT/HCPCS: 92960; 93005 ×2; 85025; 80048; 36415; 83735; 85610; 80076; 84484; 83880; 71045; 96374; 99291; J0153

== ENCOUNTER 2018-10-18 06:22 | Day surgery (SDC) | payer OTHER ==
[2018-10-16 12:00] LABS: Protime INR 1.02
--- OUTSIDE RECORDS SUMMARY | 2018-10-18 06:28 | XMS REPORT | Clinical Summary ---
:1950 Author Organization [employer] Address [address] [place] [address] Care Team Providers Name Role Phone Jl Ramirez MD Primary Care Provider Allergies Active Allergy Reactions Severity Noted Date Comments Latex 07/05/2018 blisters Nitrofurantoin Monohyd/M-Cryst 08/05/2018 Nitrofurantoin Anaphylaxis High 07/05/2018 Other 07/05/2018 "All types of Metals" Medications Medication Sig Dispensed Refills Start Date End Date Status sucralfate Take 1 g by 0 Active (CARAFATE) 100 mouth 4 mg/mL suspension (four) times a day. levothyroxine Take 100 mcg [...] a day for 7 days. levothyroxine Take 125 mcg 0 08/26/2018 Discontinued (SYNTHROID, by mouth LEVOXYL) 125 mcg daily. tablet flecainide Take 25 mg by 0 07/16/2018 Discontinued (TAMBOCOR) 50 MG mouth 2 (two) tablet times a day. metoprolol tartrate Take 1 tablet 180 tablet 2 07/07/2018 07/11/2018 Discontinued (LOPRESSOR) 25 mg (25 mg total) tablet by mouth 2 (two) times a day for 270 days. rivaroxaban Take 1 tablet 90 tablet 2 07/07/2018 08/26/2018 Discontinued (XARELTO) 20 mg (20 mg total) tablet by mouth daily for 270 days. pantoprazole Take 40 mg by 0 08/26/2018 Discontinued (PROTONIX) 40 MG EC mouth daily. tablet minocycline Take 100 mg 0 08/26/2018 Discontinued (MINOCIN,DYNACIN) by mouth 2 100 MG capsule (two) times a day. metoprolol tartrate Take 25 mg by 0 07/16/2018 Discontinued (LOPRESSOR) 25 mg mouth 2 (two) tablet times a day. colchicine 0.6 mg Take 0.6 mg 0 08/26/2018 Discontinued tablet by mouth 2 (two) times a day. sotalol (BETAPACE) Take 0.5 30 tablet 0 07/16/2018 08/15/2018 80 MG tablet tablets (40 mg total) by mouth 2 (two) times a day for 30 days. cephalexin (KEFLEX) Take 1 14 capsule 0 08/05/2018 08/12/2018 500 MG capsule capsule (500 mg total) by mouth 2 (two) times a day for 7 days. sotalol (BETAPACE) Take 80 mg by 0 08/26/2018 Discontinued 80 MG tablet mouth 2 (two) times a day. colchicine 0.6 mg Take 1 tablet 60 tablet 0 08/26/2018 09/25/2018 tablet (0.6 mg total) by mouth 2 (two) times a day for 30 days. rivaroxaban Take 1 tablet 30 tablet 0 08/26/2018 09/25/2018 (XARELTO) 20 mg (20 mg total) tablet by mouth daily for 30 days. pantoprazole Take 1 tablet 30 tablet 0 08/26/2018 09/25/2018 (PROTONIX) 40 MG EC (40 mg total) tablet by mouth daily for 30 days. levothyroxine Take 1 tablet 30 tablet 0 08/26/2018 09/25/2018 (SYNTHROID, (125 mcg LEVOXYL) 125 mcg total) by tablet mouth daily for 30 days. Active Problems Problem Noted Date Paroxysmal SVT (supraventricular tachycardia) 08/25/2018 PAF (paroxysmal atrial fibrillation) 07/14/2018 Encounters Date Type Specialty Care Team Description 08/25/2018 Anesthesia Event Procedural Charlene Miller Cardiology 08/25/2018 Surgery Procedural Elie Olsen MD Ep complete ep study Cardiology w ablation svt [86162 (CPT)] 08/25/2018 - Hospital Encounter General Internal Grady Payton 08/26/2018 Greg Young MD 08/24/2018 Intake Access N/A 08/19/2018 Emergency Emergency Medicine Grady Aparicio SVT David Lafleur MD (supraventricular tachycardia) ([facility]) (Primary Dx) 08/05/2018 Emergency Emergency Medicine Bina, Palpitations (Primary Dx); MD Adia Tachycardia; Urinary tract infection without hematuria, site unspecified 07/14/2018 Anesthesia Event Procedural Violet Huynh, Cardiology BLAST FURNACE SUPERVISOR 07/14/2018 Surgery Procedural Elie Olsen MD EP COMPLETE EP STUDY Cardiology W ABLATION PULMONARY VEIN CARTO ANESTH [57305 (CPT)] 07/14/2018 - Hospital Encounter Cardiology Elie Olsen MD PAF (paroxysmal atrial fibrillation) ([facility]); 07/16/2018 Meghan Anna Atrial tachycardia ([facility]) MD Ciarra 07/07/2018 Surgery Procedural Elie Olsen MD EP COMPLETE EP STUDY Cardiology W ABLATION SVT CARTO MAC ANESTH [00890 (CPT)] 07/07/2018 Anesthesia Event Procedural Kannan Keith Cardiology Edward, BLAST FURNACE SUPERVISOR 07/07/2018 Hospital Encounter Procedural Elie Olsen MD SVT Cardiology (supraventricular tachycardia) ([facility]) 06/11/2018 Emergency Emergency Medicine Nadir Sanz, Paroxysmal SVT ( supraventricular tachycardia) ([facility]) (Primary Dx); Urinary tract infection without hematuria, site unspecified 06/11/2018 Travel 12/15/2017 - Emergency Emergency Medicine TAWANDA BorjasT 12/16/2017 MD Adia (supraventricular tachycardia) (Primary Dx) after 10/17/2017 Social History Tobacco Use Types Packs/Day Years [...] Vital Sign Reading Time Taken Blood Pressure 101/61 08/26/2018 11:14 AM CDT Pulse 67 08/26/2018 11:14 AM CDT Temperature 36.1 C (96.9 F) 08/26/2018 11:14 AM CDT Respiratory Rate 18 08/26/2018 11:14 AM CDT Oxygen Saturation 96% 08/26/2018 11:14 AM CDT Inhaled Oxygen Concentration - - Weight 67.2 kg (148 lb 1.6 oz) 08/26/2018 4:08 AM CDT Height 167.6 cm (5' 6") 08/19/2018 8:20 PM CDT Body Mass Index 23.9 08/19/2018 8:20 PM CDT Plan of Treatment Health Maintenance Due Date Last Done Comments BREAST CANCER SCREENING 1999 COLON CANCER SCREENING 1999 SHINGLES VACCINES (#1) 1999 65+ PNEUMOCOCCAL VACCINE (2 of 2 - PPSV23) 2014 03/05/2015 PNEUMOCOCCAL POLYSACCHARIDE VACCINE AGE 65 AND OVER 2014 INFLUENZA VACCINE 12/14/2018 02/18/2015 Implants Implanted Type Area Rn Plastics Device Shelf Model / Identifier Expiration Serial / Date Lot System Reveal Linq W/Monitors - [id number] Cardiac N/A: [employer] 2019 LINQSYS / Implanted: 07/14/2018 (Quantity not on file) Pacemakers and N/A CARDIAC RHYTHM / Related DISEASE MGMT [id number] Products Medtronic Ti Medtronic Titanium Heart Monitor Procedures Procedure Name Priority Date/Time Associated Comments Diagnosis HC COMPLETE BLD COUNT Routine 08/26/2018 5:10 Results for this W/AUTO DIFF AM CDT procedure are in the results section. ESTIMATED GFR Routine 08/26/2018 4:00 Results for this AM CDT procedure are in the results section. BASIC METABOLIC PANEL Routine 08/26/2018 4:00 Results for this AM CDT procedure are in the results section. EP COMPLETE EP STUDY W Routine 08/25/2018 6:21 Results for this ABLATION SVT PM CDT procedure are in the results section. ACTIVATED CLOTTING TIME Routine 08/25/2018 5:47 Results for this PM CDT procedure are in the results section. B NATRIURETIC PEPTIDE Routine 08/25/2018 10:52 Results for this AM CDT procedure are in the results section. PARTIAL THROMBOPLASTIN Routine 08/25/2018 10:52 Results for this TIME (PTT) AM CDT procedure are in the results section. PROTHROMBIN TIME WITH Routine 08/25/2018 10:52 Results for this INR AM CDT procedure are in the results section. HC COMPLETE BLD COUNT Routine 08/25/2018 10:52 Results for this W/AUTO DIFF AM CDT procedure are in the results section. ESTIMATED GFR Routine 08/25/2018 7:30 Results for this AM CDT procedure are in the results section. PREALBUMIN LEVEL Routine 08/25/2018 7:30 Results for this AM CDT procedure are in the results section. THYROID STIMULATING Routine 08/25/2018 7:30 Results for this HORMONE AM CDT procedure are in the results section. PHOSPHORUS LEVEL Routine 08/25/2018 7:30 Results for this AM CDT procedure are in the results section. MAGNESIUM LEVEL Routine 08/25/2018 7:30 Results for this AM CDT procedure are in the results section. COMPREHENSIVE METABOLIC Routine 08/25/2018 7:30 Results for this PANEL AM CDT procedure are in the results section. GRAM STAIN Routine 08/19/2018 10:08 Results for [...] CDT procedure are in the results section. NE CRITICAL CARE, E/M Routine 08/19/2018 8:52 Results [...] Routine 07/16/2018 9:00 Results for this AM CABIN SUPERVISOR procedure are in the results section. MAGNESIUM LEVEL Routine 07/16/2018 9:00 Results for this AM CABIN SUPERVISOR procedure are in the results section. BASIC METABOLIC PANEL Routine 07/16/2018 9:00 Results for this AM CABIN SUPERVISOR procedure are in the results section. ECG 12-LEAD Routine 07/16/2018 8:04 Results for this AM CABIN SUPERVISOR procedure are in the results section. POC GLUCOSE Routine 07/15/2018 9:50 Results for this PM CABIN SUPERVISOR procedure are in the results section. ECG 12-LEAD Routine 07/15/2018 8:25 Results for this PM CABIN SUPERVISOR procedure are in the results section. ECG 12-LEAD Routine 07/15/2018 8:59 Results for this AM CABIN SUPERVISOR procedure are in the results section. ECG 12-LEAD Routine 07/15/2018 4:34 Results for this AM CABIN SUPERVISOR procedure are in the results section. MAGNESIUM LEVEL Routine 07/15/2018 4:05 Results for this AM CABIN SUPERVISOR procedure are in the results section. ESTIMATED GFR Routine 07/15/2018 4:05 Results for this AM CABIN SUPERVISOR procedure are in the results section. BASIC METABOLIC PANEL Routine 07/15/2018 4:05 Results for this AM CABIN SUPERVISOR procedure are in the results section. HC COMPLETE BLD COUNT Routine 07/15/2018 4:05 Results for this W/AUTO DIFF AM CABIN SUPERVISOR procedure are in the results section. ECG PRE/POST OP Routine 07/15/2018 3:47 Results for this AM CABIN SUPERVISOR procedure are in the results section. POC GLUCOSE Routine 07/14/2018 11:32 Results for this PM CABIN SUPERVISOR procedure are in the results section. EP SUBCUTANEOUS CARDAIC Routine 07/14/2018 2:59 PAF (paroxysmal Results for this RHYTHM MONITOR INSERT W PM CABIN SUPERVISOR atrial procedure are in PROG fibrillation) ([facility]) the results Atrial tachycardia section. ([facility]) EP COMPLETE EP STUDY W Routine 07/14/2018 2:59 PAF (paroxysmal Results for this ABLATION PULMONARY VEIN PM CABIN SUPERVISOR atrial procedure are in fibrillation) ([facility]) the results Atrial tachycardia section. ([facility]) ACTIVATED CLOTTING TIME Routine 07/14/2018 2:46 Results for this PM CABIN SUPERVISOR procedure are in the results section. ACTIVATED CLOTTING TIME Routine 07/14/2018 1:47 Results for this PM CABIN SUPERVISOR procedure are in the results section. ACTIVATED CLOTTING TIME Routine 07/14/2018 1:02 Results for this PM CABIN SUPERVISOR procedure are in the results section. ACTIVATED CLOTTING TIME Routine 07/14/2018 12:27 Results for this PM CABIN SUPERVISOR procedure are in the results section. ARTERIAL LINE Routine 07/14/2018 11:48 AM CABIN SUPERVISOR Procedure Note - Violet Huynh CRNA - 07/14/2018 11:48 AM CABIN SUPERVISOR Arterial line Performed by: Violet Huynh CRNA Authorized by: Elpidio Diaz MD Start Time: 07/14/2018 11:19 AM End Time: 07/14/2018 11:24 AM Staff: Anesthesiologist: Elpidio Diaz MD Resident/BLAST FURNACE SUPERVISOR/AA: Violet Huynh CRNA Performed by: Resident/BLAST FURNACE SUPERVISOR/AA Pre-procedure: patient identified, IV checked, site and [...] the procedure well with no immediate complications NE AN ELECTIVE ENDOTRACHEAL AIRWAY Routine 07/14/2018 11:44 AM CABIN SUPERVISOR Procedure Note - Violet Huynh CRNA - 07/14/2018 11:44 AM CABIN SUPERVISOR Airway Date/Time: 07/14/2018 11:21 AM Performed by: Violet Hunyh CRNA Authorized by: Elpidio Diaz MD Location: OR Urgency: Elective Difficult Airway: No Anesthesiologist: Elpidio Diaz MD Resident/YUNI/AA: Violet Huynh CRNA Performed by: anesthesiologist Preoxygenated [...] 07/14/2018 11:33 AM Results for this TIME CABIN SUPERVISOR procedure are in the results section. TYPE AND SCREEN STAT 07/14/2018 9:40 AM Results for this CABIN SUPERVISOR procedure are in the results section. ECG PRE/POST OP STAT 07/14/2018 9:14 AM Results for this CABIN SUPERVISOR procedure are in the results section. EP COMPLETE EP STUDY Routine 07/07/2018 10:19 AM SVT Results for this W ABLATION VT CABIN SUPERVISOR (supraventricu procedure are in the lar results section. tachycardia) (HCC) ARTERIAL LINE Routine 07/07/2018 8:24 AM CABIN SUPERVISOR Procedure Note - Kannan Keith CRNA - 07/07/2018 8:24 AM CABIN SUPERVISOR Arterial line Performed by: Kannan Keith CRNA Authorized by: Tasneem Marcum MD Patient Location: OR Staff: Anesthesiologist: Tasneem Marcum MD Resident/YUNI/AA: Kannan Keith CRNA Performed by: Resident/BLAST FURNACE SUPERVISOR/AA Pre-procedure: patient identified, IV checked, site and [...] TYPE AND SCREEN STAT 07/07/2018 6:30 AM CABIN SUPERVISOR URINALYSIS STAT 06/11/2018 9:46 PM CABIN SUPERVISOR XR CHEST 1 VW PORTABLE STAT 06/11/2018 8:35 PM CABIN SUPERVISOR ECG ED PRELIMINARY Routine 06/11/2018 8:33 PM CABIN SUPERVISOR Results for this INTERPRETATION procedure are in the results section. ECG ED PRELIMINARY Routine 06/11/2018 8:33 PM CABIN SUPERVISOR Results for this INTERPRETATION procedure are in the results section. NE CRITICAL CARE, ADDL 30 Routine 06/11/2018 8:33 PM CABIN SUPERVISOR Results for this MIN procedure are in the results section. NE CRITICAL CARE, E/M 30-74 Routine 06/11/2018 8:33 PM CABIN SUPERVISOR Results for this MINUTES procedure are in the results section. ECG 12-LEAD Routine 06/11/2018 8:15 PM CABIN SUPERVISOR SMEAR REVIEW STAT 06/11/2018 8:08 PM CABIN SUPERVISOR ESTIMATED GFR STAT 06/11/2018 8:08 PM CABIN SUPERVISOR CREATINE KINASE, TOTAL (CPK) STAT 06/11/2018 8:08 PM CABIN SUPERVISOR TROPONIN, I-STAT STAT 06/11/2018 8:08 PM CABIN SUPERVISOR HC COMPLETE BLD COUNT W/AUTO STAT 06/11/2018 8:08 PM CABIN SUPERVISOR Results for this DIFF procedure are in the results section. COMPREHENSIVE METABOLIC STAT 06/11/2018 8:08 PM CABIN SUPERVISOR Results for this PANEL procedure are in the results section. ECG 12-LEAD STAT 06/11/2018 8:03 PM CABIN SUPERVISOR XR CHEST 1 VW PORTABLE STAT 12/15/2017 10:29 PM CDT ECG ED PRELIMINARY Routine 12/15/2017 10:18 PM CDT Results for this INTERPRETATION procedure are in the results section. ECG ED PRELIMINARY Routine 12/15/2017 10:18 PM CDT Results for this INTERPRETATION procedure are in the results section. NE CRITICAL CARE, E/M 30-74 Routine 12/15/2017 10:18 [...] ECG 12-LEAD Routine 12/15/2017 10:01 PM CDT after 10/17/2017 Results CBC with platelet and differential (08/26/2018 5:10 AM CDT)Only the most recent of7 resultswithin the time period is included. WBC 6.07 4.50 - 11.00 [facility] RBC 4.05 (L) 4.20 - 5.50 [facility] HGB 12.9 12.0 - 16.0 [facility] g/dL [facility] HCT 39.7 37.0 - 47.0 % [facility] MCV 98.0 82.0 - 100.0 [facility] MCH 31.9 27.0 - 34.[address] [facility] MCHC 32.5 31.0 - 37.0 [facility] g/dL HOSPITAL RDW - SD 42.3 37.0 - 55.[address] [facility] MPV 10.6 8.8 - 13.[address] [facility] Platelet count 148 (L) 150 - 400 k/uL [facility] Nucleated RBC 0.00 /[address] [facility] Neutrophils 49.8 39.0 - 69.0 % [facility] Lymphocytes 35.7 25.0 - 45.0 % [facility] Monocytes 10.2 (H) 0.0 - 10.0 % [facility] Eosinophils 3.5 0.0 - 5.0 % [facility] Basophils 0.3 0.0 - 1.0 % [facility] Immature granulocytes 0.5Comment: 0.0 - 1.0 % [facility] "[facility] granulocytes" (promyelocytes , myelocytes, metamyelocytes ) Specimen Blood Performing Organization Address City/[facility] Centercode Phone Number [facility] DEPARTMENT OF PATHOLOGY AND [address] [place] [address] Estimated GFR (08/26/2018 4:00 AM CDT)Only the most recent of7 resultswithin the time period is included. [facility] Estimated GFR 55 (A) mL/min/1.73 [facility] Comment: HOSPITAL CatergoryUnitsInterpretation G1 >=90 Normal or high G2 60-89Mildly decreased [id number] to moderately decreased [id number] to severely decreased G4 15-29Severely decreased G5 <15Kidney failure The eGFR was calculated using the Chronic Kidney Disease Epidemiology Collaboration (CKD-EPI) equation. Interpretation is based on recommendations of the National Kidney Foundation-Kidney Disease Outcomes Quality Initiative (NKF-KDOQI) published in 2014. Specimen Plasma specimen Performing Organization Address City/[facility]/Zipcode Phone Number [facility] DEPARTMENT OF PATHOLOGY AND [address] [place] [address] Basic metabolic panel (08/26/2018 4:00 AM CDT)Only the most recent of3 resultswithin the time period is included. [facility] Sodium 142 135 - 148 mEq/L [facility] Potassium 4.2 3.5 - 5.0 mEq/L [facility] Chloride 106 98 - 112 mEq/L [facility] CO2 25 24 - 31 mEq/L [facility] Anion gap 11@ANIO 7 - 15 mEq/L [facility] BUN 12 8 - 23 mg/dL [facility] Creatinine 1.03 (H) 0.50 - 0.90 mg/dL [facility] Glucose 106 (H) 65 - 99 mg/dL [facility] Calcium 9.0 8.8 - 10.2 mg/dL [facility] Specimen Plasma specimen Performing Organization Address City/State/Zipcode Phone Number [facility] DEPARTMENT OF PATHOLOGY AND [address] [place] [address] 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 -Discontinue sotalol -Discharge home likely tomorrow. -Restart Xarelto tomorrow -F/U in 2-3 weeks Narrative Performed At DATE OF OPERATION: August 24, 2018 [employer] ALUMINUM POURER: Elie Olsen MD PREOPERATIVE DIAGNOSES: -Supraventricular tachycardia, adenosine sensitive, status post multiple recent ER visit -Paroxysmal atrial fibrillation status post ablation 6 weeks ago -Fast septal atrial tachycardia status post ablation 6 weeks ago POSTOPERATIVE DIAGNOSES: -Typical AVNRT status post successful ablation -Paroxysmal atrial fibrillation status post ablation 6 weeks ago -Fast septal atrial tachycardia status post ablation 6 weeks ago PROCEDURES PERFORMED: -Ultrasound guided vascular access -Comprehensive EP study -LA pacing and recording -Atrial ablation, single focus -Programmed stim after drug infusion -3D mapping -Intra cardiac echocardiography (ICE) -Transseptal puncture COMPLICATIONS: None ESTIMATED BLOOD LOSS:<10cc HISTORY OF PRESENT ILLNESS: In brief, this is a 68 years old F with past medical history as above who was admitted yesterday overnight as a transfer from ER from another hospital.Patient had atrial fibrillation and atrial tachycardia ablation about 5 or 6 weeks ago since then she had recurrent tachycardia that was adenosine sensitive and the required more than 5 or 6 visits to the ER.Including 2 visits yesterday in the morning and then again at night, and that despite use of the increasing doses of sotalol.After her visit last night, she was transferred urgently to [facility] and was admitted overnight and she presents today for redo EP study and possible ablation in a semiurgent manner. PROCEDURE IN DETAIL: Consent was obtained from [...] rhythm. 1% lidocaine was used to anesthetize right groin overlying the femoral vein. Using ultrasound guidance, 4 sheaths were inserted in to the right femoral vein (long 9Fr, long 7Fr, long 6Fr and a short 8Fr) using modified Seldinger technique.First, ICE catheter was advanced to the RA/RV [...] advanced to the CS, and a quad catheter was advanced to the RV apex. The ablation catheter was then positioned at the His the HRA positions respectively, and we proceeded then with baseline EPS.At baseline patient had easily induced SVT with catheter manipulation that was started terminates with PACs. Baseline intervals were normal, with no pre-excitation. AH=80ms, HV=40ms. Ventricular pacing demonstrated midline and decremental VA conduction with VA HRSC=[id number]. Atrial pacing showed [id number]=[id number]. With PP overlap with RR intervals suggestive of dual AV node physiology. With Atrial singles, AH jump was seen at 600/360.Echo beats and short runs of tachycardia were seen with AH jump.SVT was easily induced with CS burst pacing: There was proximal to distal on the CS was one-on-one AV tachycardia was VA time was 0.Tachycardia cycle length was 460 ms which corresponds her clinical tachycardia.Ventricular overdrive had a long return cycle length and terminated with VA HV response.At other times repeat atrial singles initiated the tachycardia that always start with AH jump. 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 Based on the above we decided to proceed with slow pathway modification. After stopping Isuprel and marking the His cloud clearly on the map, the region anterior to the CS was mapped and ablation was performed in area of SP. Slow junctionals were seen and careful attention made to the A:V conduction.Few lesions were done at 30 W and then 40 W with slow junctional seen throughout.After first round of ablation and slow pathway was still demonstrated with atrial singles however no arrhythmia was initiated.Despite this we proceeded to additional round of ablation slightly lower to her previous lesions with a junctionals seen throughout the two lesions placed until sinus rhythm took over. Following ablation, we repeated EPS. At this time, no jump was seen and AVN ERP was 600/280, confirming ablation of slow pathway.There was no echo beats seen and no jump. Repeat aggressive stimulation, atrial singles and doubles, at Isuprel up to 8mcg/min again and during Isuprel washout, SVT can no longer be induced. Following this we proceeded for left-sided access to check the veins from her recent ablation as requested by the patient as she is moving [place] remote area [place] of state.After titrating heparin for ACT more than 350 ms a successful transseptal was performed using a [place] needle and the ablation catheter was advanced to the left atrium successfully.Left atrial pressure was measured at 12mmHg. Using the Penta array voltage map and high output pacing from the ablation catheter: The left superior pulmonary vein, left inferior pulmonary vein, right superior pulmonary vein and right inferior pulmonary veins were noted to be isolated with no exit at high output pacing.The posterior wall was mainly isolated with no exit at high output pacing however there was only one focal area of connection that would capture pacing there was overlying her esophagus.2 lesions were placed there (50W x5sec and 40W x5sec).These 2 lesions isolated the posterior wall with no exit at high output pacing. At this time catheters were removed into the right atrium and protamine was given.Repeat EP study with Isuprel up to 4 mcg/min did not show any AV jump, or echo beats or SVT or tachycardia. At this time, the case was successfully concluded at this point. Conduction intervals at the end were measured and were normal. Catheters were removed outside of the body and the sheaths were removed and figure of eight suture placed. Patient was awoken from anesthesia intact. There was no acute complication. Performing Organization Address [facility] Centercoct Phone Number [facility] [address] [place] [phone] Activated clotting time (08/25/2018 5:47 PM CDT)Only the most recent of6 resultswithin the time period is included. [facility] Activated clotting 388 (H) 96 - 152 sec [facility] Comment: HOSPITAL Meter ID: [id number] Editorial Manager: Debbi Johnson Specimen Performing Organization Address [facility] Phone Number [facility] DEPARTMENT OF PATHOLOGY AND [address] [place] [phone] [address] Partial thromboplastin time, activated (08/25/2018 10:52 AM CDT)Only the most recent of3 resultswithin the time period is included. [facility] PTT 33.7 23.0 - 36.0 [facility] Comment: [facility] PTT therapeutic range for unfractionated heparin is 61.0-112.0 seconds which corresponds to Anti-Xa 0.3-0.7 U/ml. Specimen Blood Performing Organization Address [facility] Phone Number [facility] DEPARTMENT OF PATHOLOGY AND [address] [place] [address] [address] Prothrombin time with INR (08/25/2018 10:52 AM CDT)Only the most recent of3 resultswithin the time period is included. [facility] Prothrombin time 17.4 (H) 11.5 - 14.5 [facility] INR 1.5 FLUSHING Comment: CONFUCIANIST The International Normalized Ratio (INR) is a therapeutic HOSPITAL monitoring tool for patients who are stable on oral anticoagulant therapy. An INR of 2.0-3.0 is suggested for deep vein thrombosis/pulmonary embolism. Specimen Blood Performing Organization Address [facility] Phone Number [facility] DEPARTMENT OF PATHOLOGY AND [address] [place] [phone] [address] B natriuretic peptide (08/25/2018 10:52 AM CDT)Only the most recent of2 resultswithin the time period is included. BNP 229 (H) 0 - 100 pg/mL [facility] Specimen Blood Performing Organization Address City/[facility] Phone Number [facility] DEPARTMENT OF PATHOLOGY AND [address] [place] [address] Thyroid stimulating hormone (08/25/2018 7:30 AM CDT)Only the most recent of4 resultswithin the time period is included. TSH 1.33 0.27 - 4.20 uIU/mL [facility] Specimen Plasma specimen Performing Organization Address [facility] Phone Number [facility] DEPARTMENT OF PATHOLOGY AND [address] [place] [address] [address] Prealbumin level (08/25/2018 7:30 AM CDT) Prealbumin 21 16 - 32 mg/dL [facility] Specimen Serum Performing Organization Address [facility] Phone Number [facility] DEPARTMENT OF PATHOLOGY AND [address] [place] [address] Phosphorus level (08/25/2018 7:30 AM CDT) Phosphorus 3.2 2.4 - 4.5 mg/dL [facility] Specimen Plasma specimen Performing Organization Address City/[facility] Phone Number [facility] DEPARTMENT OF PATHOLOGY AND [address] [place] [phone] [place] [address] Magnesium level (08/25/2018 7:30 AM CDT)Only the most recent of3 resultswithin the time period is included. Magnesium 2.0 1.6 - 2.4 mg/dL [facility] Specimen Plasma specimen Performing Organization Address [facility] Phone Number [facility] DEPARTMENT OF PATHOLOGY AND [address] [place] [address] Comprehensive metabolic panel (08/25/2018 7:30 AM CDT)Only the most recent of5 resultswithin the time period is included. Pathologist [facility] Sodium 139 135 - 148 [facility] mEq/L [facility] Potassium 4.1 3.5 - 5.0 [facility] mEq/L [facility] Chloride 105 98 - 112 mEq/L [facility] CO2 23 (L) 24 - 31 mEq/L [facility] Anion gap 11@ANIO 7 - 15 mEq/L [facility] BUN 14 8 - 23 mg/dL [facility] Creatinine 0.91 (H) 0.50 - 0.90 [facility] mg/dL HOSPITAL Glucose 108 (H) 65 - 99 mg/dL [facility] Calcium 8.7 (L) 8.8 - 10.2 [facility] mg/dL [facility] Protein 6.2 (L) 6.3 - 8.3 g/dL [facility] Comment: HOSPITAL [place] 4.6-7.0 g/dL 1 week 4.4-7.6 g/dL 7 months-1year5.1-7.3 g/dL 1-2 years5.6-7.5 g/dL >3 years6.0-8.0 g/dL 18-150 6.3-8.3 g/dL Albumin 3.5 3.5 - 5.0 g/dL [facility] A/G ratio 1.3 0.7 - 3.8 [facility] Alkaline phosphatase 66 35 - 104 U/L [facility] AST 17 10 - 35 U/L [facility] ALT 7 5 - 50 U/L [facility] Total bilirubin 0.3 0.0 - 1.2 [facility] mg/dL HOSPITAL Specimen Plasma specimen Performing Organization Address City/State/Zipcode Phone Number [facility] DEPARTMENT OF PATHOLOGY AND [address] [place] [address] Gram stain (08/19/2018 10:08 PM CDT)Only the most recent of2 resultswithin the time period is included. Pathologist [facility] Gram stain result Occasional WBC's [facility] Occasional Gram positive rods HOSPITAL Moderate Gram positive cocci in chains Comment: Specimen Information Specimen Source: Urine Specimen Site: Clean catch Specimen Urine Performing Organization Address City/[facility]/Zipcode Phone Number [facility] DEPARTMENT OF PATHOLOGY AND [address] [place] [phone] [place] [phone] Urine culture (08/19/2018 10:08 PM CDT)Only the most recent of2 resultswithin the time period is included. Urine culture No growth after 24 hours [facility] isolate Comment: HOSPITAL Specimen Information Specimen Source: Urine Specimen Site: Clean catch Specimen Urine Performing Organization Address City/[facility] Phone Number [facility] DEPARTMENT OF PATHOLOGY AND [address] [place] [phone] [place] [phone] Urinalysis screen and microscopy, with reflex to culture (08/19/2018 9:49 PM CDT)Only the most recent of2 resultswithin the time period is included. Specimen site Clean catch [facility] Color, UA Colorless YELLOW [facility] Appearance, UA Clear Clear [facility] Specific gravity, 1.004 (A) 1.005 - 1.030 [facility] pH, UA 6.0 5.0 - 8.0 [facility] Protein, UA Negative Negative [facility] Glucose, UA Negative Negative [facility] Ketones, UA Negative Negative [facility] Bilirubin, UA Negative Negative [facility] Blood, UA Small (A) Negative [facility] Nitrite, UA Negative NEGATIVE [facility] Urobilinogen, UA <2.0 <2.0 E.U./dL [facility] Leukocyte esterase, Trace (A) Negative [facility] Epithelial cells, <1 0 - 15 /HPF [facility] WBC, UA 4 0 - 5 /Hpf [facility] RBC, UA 1 0 - 5 /HPF [facility]CIAN[facility] Bacteria, UA None seen None seen [facility] Yeast, UA None seen None Seen [facility] Yeast with None seen [facility] pseudohyphae, UA [facility] Specimen Urine Performing Organization Address City/[facility]/Zipcode Phone Number [facility] DEPARTMENT OF PATHOLOGY [address] [place] [address]. [address] [place] [address] AND [place] [phone] HOSPITAL XR Chest 1 Vw Portable (08/19/2018 9:42 PM CDT)Only the most recent of3 resultswithin the time period is included. Specimen Narrative Performed At EXAMINATION: XR CHEST 1 VW PORTABLE [facility]IANT CLINICAL HISTORY: shortness of breath COMPARISON:06/11/2018 chest x-ray. IMPRESSION: Vascular congestion. No consolidation. No pleural effusion or pneumothorax. Cardiac silhouette is mildly enlarged. No acute osseous abnormalities. [facility]-[id number] Procedure Note Hm Interface, Radiology Results Incoming - 08/19/2018 9:47 PM CDT EXAMINATION: XR CHEST 1 VW PORTABLE CLINICAL HISTORY: shortness of breath COMPARISON: 06/11/2018 chest x-ray. IMPRESSION: Vascular congestion. No consolidation. No pleural effusion or pneumothorax. Cardiac silhouette is mildly enlarged. No acute osseous abnormalities. [facility]-[id number] Performing Organization Address City/[facility]/Zipcode Phone Number [facility] [address] [place] [address] Troponin (08/19/2018 9:25 PM CDT)Only the most recent of3 resultswithin the time period is included. [facility] Troponin <0.300 0.000 - 0.300 [facility] Comment: ng/mL [facility] The diagnostic value of a single normal or non-diagnostic result is questionable.Serial samples at 2-6 hour intervals are required to rule out acute myocardial injury. Specimen Plasma specimen Performing Organization Address City/[facility]/Zipcode Phone Number [facility] DEPARTMENT OF PATHOLOGY [address] [place] [address]. [address] [place] [address] [place] [phone] HOSPITAL T4, free (08/19/2018 9:25 PM CDT)Only the most recent of2 resultswithin the time period is included. Pathologist [facility] T4, free 1.6 0.8 - 1.8 ng/dL [facility] Specimen Plasma specimen Performing Organization Address City/[facility]/Zipcode Phone Number [facility] DEPARTMENT OF PATHOLOGY [address] [place] [address] [place] [address] HOSPITAL Creatine kinase, total (CPK) (08/19/2018 9:25 PM CDT)Only the most recent of4 resultswithin the time period is included. Creatine kinase 49 35 - 200 U/L [facility] Specimen Plasma specimen Performing Organization Address [facility] Phone Number [facility] DEPARTMENT OF PATHOLOGY [address] [place] [address] [place] [address] HOSPITAL ECG 12 lead (08/19/2018 9:20 PM CDT)Only the most recent of13 resultswithin the time period is included. Ventricular rate 67 [facility] Atrial rate 67 [facility] NE interval 164 [facility] QRSD interval 134 [facility] QT interval 410 [facility] QTC interval 433 [facility] P axis 1 38 [facility] QRS axis 1 -74 [facility] T wave axis 20 [facility] EKG impression Normal sinus [facility] rhythm-Right bundle branch block-Left anterior fascicular block-^^^ Bifascicular block ^^^-Abnormal ECG-- Specimen Narrative Performed At Performing Organization Address City/[facility] Phone Number [facility] M[facility] [address] [place] [address] ECG ED Preliminary Interpretation - Not an Order (08/19/2018 8:52 PM CDT)Only the most recent of7 resultswithin the time period is included. Narrative Performed At Grady Aparicio Jr., MD 08/19/2018 10:59 PM ECG ED Preliminary Interpretation - Not an Order Performed by: Grady Aparicio Jr., MD Authorized by: Grady Aparicio Jr., MD ECG reviewed by ED Physician in the absence of a vegetable loader machine operator: yes Interpretation: Interpretation: non-specific Rate: ECG rate:152 [...] for this patient from another provider.: no POC glucose (07/15/2018 9:50 PM CABIN SUPERVISOR)Only the most recent of2 resultswithin the time period is included. [facility] POC glucose 105 (H) 65 - 99 mg/dL [facility] Comment: [facility] Notified RN Meter ID: [id number] Editorial Manager: Guero Thomas Specimen Performing Organization Address City/State/Zipcode Phone Number [facility] DEPARTMENT OF PATHOLOGY AND [address] [place] [address] GENOMIC MEDICINE [address] [address] ECG Pre/Post Op (07/15/2018 3:47 AM CABIN SUPERVISOR)Only the most recent of2 resultswithin the time period is included. Ventricular rate 60 [facility] Atrial rate 60 [facility] NE interval 198 [facility] QRSD interval 126 [facility] QT interval 460 [facility] QTC interval 460 [facility] P axis 1 64 [facility] QRS axis 1 -4 [facility] M[facility] T wave axis -5 [facility] MUSE EKG impression Normal sinus [facility] MUSE rhythm-Right bundle branch block-Abnormal ECG-In automated comparison with ECG of 14-JUL-2018 23:23,-No significant change was found- Specimen Narrative Performed At Performing Organization Address City/State/Zipcode Phone Number [facility] MUSE [address] [place] [address] Cv electrophysiology procedure (07/14/2018 2:59 PM CABIN SUPERVISOR) Specimen Impressions Performed At -Successful pulmonary veins isolation [...] DATE OF OPERATION: July 14, 2018 [facility] ALUMINUM POURER: Elie Olsen MD PREOPERATIVE DIAGNOSES: -Paroxysmal atrial [...] Patient presented to the EP lab in [facility]. Sheaths were placed using modified Seldinger technique. [...] medium curl Agilis sheath, through which a SmartTouch SF catheter, DF curve was advanced to the RA, and a Fast Anatomic Map (FAM) was done for the IVC, RA septum, fossa and SVC. A decapolar diagnostic catheter was then advanced into the coronary sinus. Next, we turned out attention to left sided access. After titrating heparin drip to achieve an ACT > 350 sec, transseptal puncture was performed with Camden long needle (requiring RF) using ICE guidance. [...] 30-40 W with very careful attention to NE conduction.Ablation at the earliest site was about [...] interval was measured at 44msec and AH=78. XWMES=[id number], concentric and midline. AWMPE=[id number], Atria ERP was obtained at 500/230ms. Post-procedure ICE showed no pericardial effusion.Catheters were removed and sheath was pulled and the [id number] sutures were placed in the groin. Following [...] in a stable condition. Performing Organization Address [facility] Phone Number [facility] [address] [place] [phone] Type and screen (07/14/2018 9:40 AM CABIN SUPERVISOR)Only the most recent of2 resultswithin the time period is included. ABO grouping A [facility] Rh type POS [facility] Antibody screen (gel) NEG [facility] Specimen Blood Performing Organization Address City/[facility] Phone Number [facility] DEPARTMENT OF PATHOLOGY AND [address] [place] [address] GENOM[address] [address] Cv electrophysiology procedure (07/07/2018 10:19 AM CABIN SUPERVISOR) Specimen Impressions Performed At -Incessant atrial fibrillation on [...] At DATE OF OPERATION: July 07, 2018 HM [facility] ALUMINUM POURER: Elie Olsen MD PREOPERATIVE DIAGNOSES: -Supraventricular tachycardia [...] midline and decrementing VA conduction with VA [id number]=[id number]. Para Hissian pacing was performed and exhibited a normal amber response, ruling out a septal concealed pathway. Atrial pacing from HRA showed GHQKZ=[id number]. With Atrial singles, atrial ERP was was [...] however induced fast SVT with 1:1 conduction, YIP=[id number] which is is her clinical SVT. This was [id number] on CS. VOD showed VAAV response with [...] was no acute complication. Performing Organization Address [facility] Phone Number [employer] [address] [place] [address] Urinalysis (06/11/2018 9:46 PM CABIN SUPERVISOR) Glucose, UA Negative Negative [facility] Bilirubin, UA Negative Negative [facility] Ketones, UA Negative Negative [facility] Specific gravity, 1.010 1.005 - 1.030 [facility] Blood, UA Trace (A) Negative [facility] pH, UA 5.5 5.0 - 8.0 [facility] Protein, UA Negative Negative [facility] Urobilinogen, UA <2.0 <2.0 [facility] Nitrite, UA Negative Negative [facility] Leukocyte esterase, Moderate (A) Negative [facility] Color, UA Yellow [facility] Appearance, UA Clear [facility] Specimen Urine Performing Organization Address City/[facility] Phone Number DEPARTMENT OF PATHOLOGY [address] [place], [place] [phone] AND GENOMIC MEDICINE, [facility]. [facility] [place] [address] [place] [address] CRITICAL CARE (06/11/2018 8:33 PM CABIN SUPERVISOR) Narrative Performed At Nadir Sanz MD 06/11/2018 [...] provider.: no Smear review (06/11/2018 8:08 PM CABIN SUPERVISOR) Platelet slide Kody adequate [facility] Enlarged platelets Slight [facility] Specimen Blood Performing Organization Address City/State/Zipcode Phone Number DEPARTMENT OF PATHOLOGY [address] [place] [address] AND [facility], [place] [address] Troponin, I-Stat (06/11/2018 8:08 PM CABIN SUPERVISOR) Troponin, I-Stat 0.01 0.00 - 0.08 [facility] Comment: ng/mL [facility] 0.09 - 1.49 ng/mlMay indicate increased risk of acute coronary syndrome. >=1.5 ng/mlConsistent with acute myocardial infarction. The diagnostic value of a single normal or non-diagnostic result is questionable.Serial samples at 2-6 hour intervals are required to rule out acute myocardial injury. Specimen Plasma specimen Performing Organization Address City/State/Zipcode Phone Number DEPARTMENT OF PATHOLOGY [address] [place] [address] AND [employer] [facility] [place] [phone] CRITICAL CARE (12/15/2017 10:18 PM CDT) Narrative [...] no Estimated GFR (12/15/2017 10:18 PM CDT) Pathologist [facility] GFR Non Af Amer 45 (A) mL/min/1.73 [facility] DEPARTMENT OF PATHOLOGY AND GENOMIC MEDICINE GFR Af Amer 54 (A) mL/min/1.73 [facility] DEPARTMENT OF Comment: m2 PATHOLOGY AND Chronic kidney disease: <60 mL/min/1.73m2 GENOMIC MEDICINE Kidney failure: <15 mL/min/1.73m2 The estimated [...] specimen Performing Organization Address City/State/Zipcode Phone Number [facility] OF PATHOLOGY AND [address] [facility] [address] [place] [address] GENOMIC MEDICINE Manual differential (12/15/2017 10:18 PM CDT) Neutrophils 39.0 39.0 - 69.0 % [facility] DEPARTMENT OF PATHOLOGY AND GENOMIC MEDICINE Lymphocytes 45.0 25.0 - 45.0 % [facility] DEPARTMENT OF PATHOLOGY AND GENOMIC MEDICINE Monocytes 10.0 0.0 - 10.0 % [facility] DEPARTMENT OF PATHOLOGY AND GENOMIC MEDICINE Eosinophils 1.0 0.0 - 5.0 % [facility] DEPARTMENT OF PATHOLOGY AND GENOMIC MEDICINE Basophils 1.0 0.0 - 1.0 % [facility] DEPARTMENT OF PATHOLOGY AND GENOMIC MEDICINE Reactive lymphocytes 4 [facility] DEPARTMENT OF PATHOLOGY AND GENOMIC MEDICINE Platelet slide review Adequate [facility] DEPARTMENT OF PATHOLOGY AND GENOMIC MEDICINE Specimen Performing Organization Address City/State/Zipcode Phone Number [facility] DEPARTMENT OF PATHOLOGY AND [address] [facility] [address] [place] [address] GENOMIC MEDICINE after 10/17/2017 Insurance Payer Benefit Plan / Subscriber ID Effective Dates Phone Address Type Group HUMANA MEDICARE HUMANA MEDICARE xxxxxxxxx 2018-Present PPO PPO/PFFS/ERS MCR Advance Directives Patient has advance care planning documents, and code status on file. For more information, please contact:Evan [id number] [facility] [place] [address] Code Status Date Activated Date Inactivated Comments Full Code 08/25/2018 7:29 AM 08/26/2018 8:23 PM Code Status decision reached by: Patient
[2018-10-18] MEDS ORDERED: Ringers Lactate 1,000 ML IV ONE (06:55)
[2018-10-18] MEDS ORDERED: FENTANYL CITR 100 MCG/2 ML ONE (07:09)
[2018-10-18] MEDS ORDERED: PROPOFOL 200 MG/20 ML VIAL IV ONE (07:09)
[2018-10-18] MEDS ORDERED: LIDOCAINE 2% MPF 5 ML VIAL ONE (07:09)
[2018-10-18] MEDS ORDERED: MIDAZOLAM HCL 2 MG/2 ML INJ ONE (07:09)
[2018-10-18] MEDS ORDERED: LIDOCAINE 1% W/EPI 1:100,000 MDV 50 ML VIAL ONE (07:15)
[2018-10-18] MEDS: CEFAZOLIN/SWI 1gm 1 GM/10 ML SYR ONE ×2 (07:23→07:50)
[2018-10-18] MEDS ORDERED: GLYCOPYRROLATE 0.2 MG/ML SYR ONE (08:21)
[2018-10-18] MEDS ORDERED: SCOPOLAMINE HYDROBROMIDE PATCH TD ONE (09:40)
[2018-10-18 15:02] LABS: HIV AG/AB 4TH GEN Non-reactive (Non-reactive)
--- NOTE | 2018-10-18 17:44 | OP ---
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 Procedures Performed: Cervical colposcopy and endocervical curettage, vulvar colposcopy, wide local excision of the right labial mass, and labial reconstruction. Anesthesia: General. Specimens: Right labial mass and endocervical curettage. Complications: None. Drains: None. Condition: Stable. Findings: 1.Cervical colposcopy: The colposcopy was inadequate since the entire transformation zone was not w ell visualized, most likely from her postmenopausal status. There is a small nabothian cyst at the e ctocervix at 5 o'clock position. ECC was performed. 2.Vulvar colposcopy: The lesion was visualized and was 1.1 cm in the right labia majora, immediatel y next to the right edge of the right clitoral head. Appeared to be relatively confined to the skin without any abnormal tissue detected grossly during the procedure. The entire lesion was excised in an elliptical fashion with at least 5 mm margins on each side. Description Of Procedure: After informed consent was verified, she was taken back to the OR, placed in the supine fashion on operating table. A gram of Ancef was given. She was placed in a dorsal lit hotomy position. Cervical colposcopy was performed with a bivalve speculum. Acetic acid was applied . Findings, inadequate colposcopy due to the inadequate visualization of the transformation zone. A small nabothian cyst at 5 o'clock position of the ectocervix. ECC was performed with a Fabiano cu rette and the cervical brush for obtaining the cells, handed off for permanent pathology. Acetic acid was applied to the entire vulvar area and perineal area. No acetowhite changes were seen . The lesion was seen 1.1 cm in the right labia majora, irregular on the surface and the borders, lo cation as shown in the picture and dictated above. After the vulva, vagina, and perineum were preppe d and draped in a sterile fashion, an elliptical margin was drawn all around the lesion for excision. Lidocaine 1% mixed with 1:100,000 epinephrine was injected. A 15-blade was used to make the skin i ncision. The entire mass was excised with the help of the scalpel. Cautery was used with a needle t ip to cauterize the base. The deeper margin did extend all the way down to the fascial plane. After the removal of the mass, the fascial plane was reapproximated with the help of interrupted 3-0 Vicry l sutures x4. Then, subcutaneous tissue was brought together with the help of 3-0 Vicryl sutures x5. The skin edges were mobilized on each side in order for reconstruction to be successful without ten reg and once this was done, a 3-0 Vicryl was used to continuously close the subcuticular plane and t hen a simple interrupted suture was placed at the very inferior margin of the excision. After the pa tient was cleaned, bacitracin was placed. Fluffs were placed and a tight bandage was placed. Instru ment, needle, and sponge counts were correct at the end of the case. EBL was minimal. She tolerated the procedure well. She was extubated in the OR and taken to PACU in stable condition. She will fo llow up with me in 1 week. JORGE/NABIL Voice ID: [id number] Report ID: [id number]
[2018-10-18 18:19] LABS: HBsAG Nonreactive (Nonreactive)
[2018-10-19 19:46] LABS: Hep C Virus RNA (PCR)log <1.18 log IU/mL
== END 2018-10-18 10:40 | disposition home or self-care (01) ==
LOC: OR 06:22
PROVIDERS: ATTEND Obstetrics & Gynecology
PROC: 0UBMXZZ Excision of Vulva, External Approach (ICD-10-PCS; 2018-10-18)
PROC: 0UBC8ZX Excision of Cervix, Via Natural or Artificial Opening Endoscopic, Diagnostic (ICD-10-PCS; principal; 2018-10-18 07:30)
DX: N89.8 Other specified noninflammatory disorders of vagina (principal); A63.0 Anogenital (venereal) warts; I48.0 Paroxysmal atrial fibrillation; Z79.01 Long term (current) use of anticoagulants
CPT/HCPCS: 57454; 11422; 12041; 80048; 36415; 86900; 86850; 85610; 86901; 88305; 85730; 87389; 87340; 86803; 87522; J2704; J2250; J3010; J0690